=== PATIENT | male | born 1955 | race African-American/Black ===

== ENCOUNTER 2020-03-29 16:39 | Emergency (ER) | payer SELFPAY ==
[2020-03-29 17:42] LABS: Hematocrit 37.2 % (39.6-49.0); MPV 8.2 fL (7.6-11.3); RBC Red Blood Cell Count 4.01 M/uL (4.33-5.43)
[2020-03-29 17:59] LABS: Potassium 4.1 mmol/L (3.5-5.1)
--- NOTE | 2020-03-29 18:01 | RAD REPORT ---
EXAM DESCRIPTION: CT - Head Brain Wo Cont - 03/29/2020 5:44 pm CLINICAL HISTORY: MENTAL STATUS CHANGE COMPARISON: No comparisons TECHNIQUE: Axial 5 mm thick images of the head were obtained without IV contrast. All CT scans are performed using dose optimization technique as appropriate and may include automated exposure control or mA/KV adjustment according to patient size. FINDINGS: No intracranial hemorrhage, mass, edema or shift of mid-line structures. No acute cortical based infarction. No cortical edema or sulcal effacement. Advanced bifrontal and moderately advanced bitemporal atrophy changes are present. Parietal and occipital lobes are spared any significant degr ee of volume loss. Frontal horns of each lateral ventricle have enlarged in proportion to the frontal lobe atrophy. No abnormal extra-axial fluid collections. Arterial tree calcifications are present. Mastoid air cells and visualized portions of the paranasal sinuses are clear. No acute bony findings. IMPRESSION: No hemorrhage, mass or acute intracranial finding identified. Frontal and temporal lobe atrophy changes are consistent with frontotemporal dementia/Pick's disease.
[2020-03-29 18:05] LABS: Urine Bacteria <20 /HPF (NONE SEEN); Urine Culture Reflex Order NOT NEEDED; Urine RBC <5 /HPF (NONE SEEN)
[2020-03-29 18:05] LABS: Urine Blood NEGATIVE (NEG); Urine Glucose NEGATIVE (NEG); Urine Protein NEGATIVE (NEG)
--- NOTE | 2020-03-29 18:08 | EDPHYS ---
Physician Documentation [facility] Name: Ron Murray Age: 65 yrs Sex: Male : 1955 Arrival Date: 03/29/2020 Time: 16:57 Bed 2 Private MD: ED Physician Eusebio Woody HPI: 03/29 17:18 This 65 yrs old Black Male presents to ER via EMS with complaints of agitation, high rn blood pressure. 17:18 The patient presents with agitation. Onset: The symptoms/episode began/occurred at an rn unknown time. Possible causes: unknown. Associated signs and symptoms: The patient has no apparent associated signs or symptoms, Pertinent negatives: abdominal pain, ataxia, blurred vision, chest pain, diaphoresis, diarrhea, headache, seizure, shortness of breath, vomiting, weakness. Current symptoms: In the emergency department the patient's symptoms have improved. The patient has experienced similar episodes in the past. The patient has been recently seen by a physician:. Family member in room reports recently evaluated for [facility], was declined, agitation and behavior problems deemed 2/2 dementia, sent for eval today for continued agitation and to be medically cleared due to high blood pressure. No head trauma. Pt denies pain. No recent illness. Family member reports he has been like this "for awhile". Used to be on lisinopril, his doctor took him off of it. . Historical: - Allergies: 17:10 No Known Allergies; jl7 - Home Meds: 17:10 No medication list sent from half-way [Active]; jl7 - PMHx: 17:10 Dementia; Alzheimers; osteoarthritis; Hyperlipidemia; Hypertension; cerebral ischemia; jl7 - Immunization history:: Adult Immunizations unknown. - Social history:: Smoking status: unknown. - Family history:: not pertinent. - Hospitalizations: : Patient was recently seen at. ROS: 17:18 Constitutional: Negative for fever, chills, and weight loss, Eyes: Negative for injury, rn pain, redness, and discharge, Neck: Negative for injury, pain, and swelling, Cardiovascular: Negative for chest pain, palpitations, and edema, Respiratory: Negative for shortness of breath, cough, wheezing, and pleuritic chest pain, Abdomen/GI: Negative for abdominal pain, nausea, vomiting, diarrhea, and constipation, Back: Negative for injury and pain, MS/Extremity: Negative for injury and deformity, Skin: Negative for injury, rash, and discoloration, Neuro: Negative for headache, weakness, numbness, tingling, and seizure. Exam: 17:18 Constitutional: This is a well developed, well nourished patient who is awake, alert, rn and in no acute distress. Head/Face: Normocephalic, atraumatic. Eyes: Pupils equal round and reactive to light, extra-ocular motions intact. Periorbital areas with no swelling, redness, or edema. ENT: MMM Neck: Supple, full range of motion without nuchal rigidity, or vertebral point tenderness. No Meningismus. Cardiovascular: Regular rate and rhythm. No pulse deficits. Respiratory: No increased work of breathing, no retractions or nasal flaring. Abdomen/GI: soft, non-tender Skin: Warm, dry MS/ Extremity: Pulses equal, no cyanosis. Neuro: Awake and alert, GCS 15, oriented to person, not place or time. Ambulatory, follows commands. Strength and sensation grossly intact. Vital Signs: 16:45 BP 173 / 83; Pulse 65; Resp 17; Temp 97.7; Pulse Ox 100% ; Pain 0/10; jl7 18:00 em 18:30 BP 151 / 96; Pulse 65; Resp 17; Pulse Ox 100% ; jl7 18:00 pt removed BP cuff and pulse ox em MDM: 17:05 Patient medically screened. rn 18:06 Differential Diagnosis: electrolyte abnormality, UTI, volume depletion, dementia. Data rn reviewed: vital signs, nurses notes, lab test result(s), radiologic studies, CT scan, and as a result, I will discharge patient. Counseling: I had a detailed discussion with the patient and/or guardian regarding: the historical points, exam findings, and any diagnostic results supporting the discharge/admit diagnosis, lab results, radiology results, the need for outpatient follow up, to return to the emergency department if symptoms worsen or persist or if there are any questions or concerns that arise at home. Response to treatment: patient is well hydrated. Special discussion: I discussed with the patient/guardian in detail that at this point there is no indication for admission to the hospital. It is understood, however, that if the symptoms persist or worsen the patient needs to return immediately for re-evaluation. ED course: Pt with good behavior here, ct head neg for acute abnormality, neg UA, normal bloodwork. BP slightly elevated but taken off his lisinopril by his doctor. Will give dose here. . 03/29 17:18 Order name: CBC with Diff; Complete Time: 17:54 rn 03/29 17:18 Order name: Basic Metabolic Panel; Complete Time: 18:06 rn 03/29 17:18 Order name: Urine Microscopic Only; Complete Time: 18:11 rn 03/29 17:18 Order name: CT Head Brain wo Cont; Complete Time: 18:06 rn 03/29 18:12 Interpretation: No acute disease except: Frontotemporal changes consistent with rn front-temporal dementia. 03/29 17:53 Order name: Urine Dipstick--Ancillary (enter results); Complete Time: 18:06 eb 03/29 17:18 Order name: IV Start; Complete Time: 17:42 rn 03/29 17:18 Order name: Urine Dipstick-Ancillary (obtain specimen); Complete Time: 17:42 rn Administered Medications: 18:12 Drug: Lisinopril 10 mg Route: PO; jl7 19:00 Follow up: Response: No adverse reaction; Blood pressure is lowered jl7 Disposition: 03/29/20 18:08 Discharged to Home. Impression: Dementia in other diseases classified elsewhere. - Condition is Stable. - Discharge Instructions: Dementia. - Medication Reconciliation Form, Thank You Letter, Antibiotic Education, Prescription Opioid Use form. - Follow up: Private Physician; When: As needed; Reason: Recheck today's complaints, Re-evaluation by your physician. - Problem is an ongoing problem. - Symptoms are unchanged. Signatures: Dispatcher [employer] EDMS Eusebio Woody MD MD rn Leal, Jahala, RN RN jl7 Spike Bah RN RN rr5 Corrections: (The following items were deleted from the chart) 19:27 18:08 03/29/2020 18:08 Discharged to Home. Impression: Dementia in other diseases rr5 classified elsewhere. Condition is Stable. Forms are Medication Reconciliation Form, Thank You Letter, Antibiotic Education, Prescription Opioid Use. Follow up: Private Physician; When: As needed; Reason: Recheck today's complaints, Re-evaluation by your physician. Problem is an ongoing problem. Symptoms are unchanged. rn
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
[2020-03-30 05:44] VITALS: TEMP 97.7; O2SAT 100
[2020-03-30 05:45] VITALS: BP 151/96
== END 2020-03-29 19:27 | disposition home or self-care (01) ==
LOC: ER 16:39
DX: G30.9 Alzheimer's disease, unspecified (principal); F02.80 Dementia in other diseases classified elsewhere, unspecified severity, without behavioral disturbance, psychotic disturbance, mood disturbance, and anxiety; I10 Essential (primary) hypertension
CPT/HCPCS: 36415; 70450; 80048; 81003; 81015; 85025; 99284

== ENCOUNTER 2021-06-22 10:14 | Emergency (ER) | payer OTHER ==
--- OUTSIDE RECORDS SUMMARY | 2021-06-22 10:18 | XMS REPORT | Continuity of Care Document ---
:1955 Author Organization [facility] t Address [address] [place] [address] Care Team Providers Name Role Phone DR DORA Attending Clinician Unavailable DARLENE Attending Clinician Unavailable DR DORA Admitting Clinician Unavailable DARLENE Admitting Clinician Unavailable Payers Payer Name Policy Type Policy Number Effective Date Expiration Date S ource Problems This patient has no known problems. Allergies, Adverse Reactions, Alerts Allergy Allergy Status Severity Reaction(s) Onset Inactive Treating Comm ents Source Name Type Date Date Clinician No Known DA Active U 2019-05 [facility] 05-18 [place] s 00:00: [address] No Known DA Active U 2019-05 [facility] Allergie 05-18 [place] 00:00: [address] No Known DA Active [facility] Medications This patient has no known medications. Vital Signs Vital Name Observation Time Observation Value Comments Source Weight 2020-04-15 07:00:00 65.13 KG Weight 2020-04-08 10:33:00 65.58 KG Weight 2020-04-08 09:57:00 65.31 KG Height 2020-04-03 09:34:00 175.26 CM Procedures This patient has no known procedures. Encounters Start End Encounter Admission Attending Care Care Encounter Source Date/Time Date/Time Type Type Clinicians Facility Department ID 2020-04-03 Inpatient Madhuri JOHN OM SCStephan [id number] [place] 13:14:00 [facility] 2020-03-18 Inpatient KEVINWU TAWANNA [id number] [facility] 11:43:00 [facility] 2021-06-04 2021-06-04 Outpatient GERARDO[facility] [address] 12:18:00 12:18:00 _ANN 0126 da [facility] Program Results Test Description Test Time Test Comments Results Result Comments Source SARS-CoV (RAPID ANTIGEN) 2020-05-08 14:44:00 Test Item Value Reference Range Interpretation Comme nts SARS-CoV (ANTIGEN) (test code = NEGATIVE NEGATIVE COVAG) COVID AG (test code = COVAGC) This test has been marketed under the FDA Emergency Use Authorization (EUA) to meet challenges of the COVID-19 pandemic. The validation standards normally enforced by the FDA and the [employer] (CAP) are more stringent than those required for this test. Therefore, the result should be interpreted with caution and close attention to other clinical and epidemiological data GLUCOMETER GLUCOSE- LAB USE [id number] 07:28:00 Test Item Value Reference Range Interpretation Comments GLUCOMETER (test code 102 mg/dL 70-100 H CLEANE D METERMeter ID: = GMG) [id number] tor: [address] [facility] B12 [id number] 18:26:00 Test Item Value Reference Range Interpretation Comments VIT B12 (test code = A60) 459.0 pg/mL 180.0-914.0 [id number] 18:26:00 Test Item Value Reference Range Interpretation Comments FOLATE (test code = A75) 15.0 ng/mL 3.1-17.5 LIPID [id number] 18:26:00 Test Item Value Reference Range Interpretation Comments CHOLESTROL (test code = 44A) 192 mg/dL 140-200 TRIGLYCERI (test code = 42B) 61 mg/dL <=149 HDL (test code = 83D) 94.0 mg/dL 40.0-60.0 H LDL (test code = 34B) 86 mg/dL <=99 CHL/HDL (test code = CHR) 2.0 0.0-3.4 THYROID PANEL/SCREEN (TSH)2020-04-03 18:22:00 Test Item Value Reference Range Interpretation Comments TSH (test code = A57) 0.610 uIU/mL 0.358-3.740 [id number] 18:18:00 Test Item Value Reference Range Interpretation Comments MAGNESIUM (test code = 48A) 2.2 mg/dL 1.8-2.4 [id number] 18:18:00 Test Item Value Reference Range Interpretation Comments PREALBUMIN (test code = 08E) 34 mg/dL 18-38 [id number] 18:05:00 Test Item Value Reference Range Interpretation Comments Hb A1C % (test code 4.7 % 3.8-6.4 = HBA) A1C % (test code = HbA1c (% ) A1C) Reference Range Normal <5.7 Prediabetes 5.7-6.4 Diabetic >=6.5 [id number] 11:51:00 Test Item Value Reference Range Interpretation Comments ACETAMINPH (test code = 94M) <2.0 ug/mL 10.0-30.0 L [id number] 11:49:00 Test Item Value Reference Range Interpretation Comments FERRITIN (test code = A19) 521.4 ng/mL 26.0-388.0 H LDH-LACTIC [id number] 11:49:00 Test Item Value Reference Range Interpretation Comments LDH (test code = 33A) 241 IU/L 87-241 C-REACTIVE PROTEIN [id number] 11:41:00 Test Item Value Reference Range Interpretation Comments CRP QUANT (test code <2.9 mg/L 0.0-2.9 = CRPQ) Method Change (test Please note the code = METHOD) change in Method and the reference range COMPREHENSIVE METABOLIC [id number] 11:41:00 Test Item Value Reference Range Interpretation Comments GLUCOSE (test code = 86 mg/dL 75-100 06D) SODIUM (test code = 142 mmol/L 136-145 01A) POTASSIUM (test code = 4.0 mmol/L 3.6-5.1 01B) CHLORIDE (test code = 107 mmol/L 98-107 04A) CO2 (test code = 02A) 30 mmol/L 22-32 ANION GAP (test code = 9.0 mmol/L ANG) BUN (test code = 05D) 13 mg/dL 7-18 CREATININE (test code 1.1 mg/dL 0.7-1.3 = 03E) GFR (test code = GFR) 69 mL/min/1.73m\\S\\2 >=90 L GFR 80 mL/min/1.73m\\S\\2 >=90 L (test code = GFRAA) EGFR (test code = eGFR BY CKD-EPI EGFR) CALCULATION IS NOT RECOMMENDED FOR PATIENTS UNDER 18 YEARS OF AGE. BUN/CREA (test code = 12 12-20 BCR) CALCIUM (test code = 9.0 mg/dL 8.3-9.5 09D) BILI TOTAL (test code 0.2 mg/dL 0.2-1.0 = 11A) PROTEIN (test code = 8.1 g/dL 6.4-8.2 07D) ALBUMIN (test code = 4.1 g/dL 3.5-4.8 08D) GLOBULIN (test code = 4.0 g/dL 1.5-3.8 H GLB) ALB/GLOB (test code = 1.0 1.0-2.6 AGRR) ALK PHOS (test code = 101 IU/L 42-121 35A) AST (test code = 30A) 30 IU/L <=42 ALT (test code = 31A) 36 IU/L <=78 [id number] 11:41:00 Test Item Value Reference Range Interpretation Comments SALICYLATE (test code = 94B) <1.7 mg/dL 2.8-20.0 L ALCOHOL BLOOD (ETOH)2020-04-03 11:38:00 Test Item Value Reference Range Interpretation Comments ETOH (test code = HALC) ETHANOL The result is to be used only for medical purposes ALCOHOL (test code = <10 mg/dL <=10 56A) CARDIAC [id number] 11:37:00 Test Item Value Reference Range Interpretation Comments TROPONIN I (test code = A84) <0.015 ng/mL 0.000-0.045 SARS-CoV (RAPID ANTIGEN)2020-04-03 11:34:00 Test Item Value Reference Range Interpretation Comments SARS-CoV (ANTIGEN) NEGATIVE NEGATIVE (test code = COVAG) COVID AG (test This test has been code = COVAGC) marketed under the FDA Emergency Use Authorization (EUA) to meet challenges of the COVID-19 pandemic. The validation standards normally enforced by the FDA and the [employer] (CAP) are more stringent than those required for this test. Therefore, the result should be interpreted with caution and close attention to other clinical and epidemiological data AMMONIA [id number] 11:32:00 Test Item Value Reference Range Interpretation Comments AMMONIA (test code = 54A) 18 umol/L 11-32 PRO TIME AND [id number] 11:26:00 Test Item Value Reference Range Interpretation Comments PT (test code = 10.6 s 9.8-13.6 TT) INR (test code = 0.9 INR) INRH (test code = SUGGESTED INRH) THERAPEUTIC RANGE FOR INR: 2.5 - 3.5 For Patients with Prosthetic Valves or Patients with recurrent Thromboembolic Events 2.0 - 3.0 For Most Other Applications PTT (test code = 34.3 s 20.2-38.0 PTT) PTTH (test code = To monitor the PTTH) effectiveness of heparin, we offer the Anti-Xa (Heparin Assay). It can be used for either unfractionated or LMW Heparin. Order Code is ANTI-XA [id number] 11:26:00 Test Item Value Reference Range Interpretation Comments D-DIMER (test code = 530 ng/mL D-DU 0-234 H DDI) D-DIMER COMMENT (test *Level to rule out code = DDCOM) DVT or PE: <235 ng/mL D-DU* CBC (INCLUDES AUTOMATED DIFFERENTIAL)2020-04-03 11:22:00 Test Item Value Reference Range Interpretation Comments WBC (test code = WBC) 4.2 10\\S\\3/uL 4.5-11.0 L RBC (test code = RBC) 4.32 10\\S\\6/uL 4.20-5.60 HGB (test code = HBG) 13.4 g/dL 14.0-18.0 L HCT (test code = HCT) 42.1 % 35.0-46.0 MCV (test code = MCV) 97.5 fL 80.0-94.0 H MCH (test code = MCH) 31.0 pg 27.0-31.0 MCHC (test code = MCHC) 31.8 g/dL 32.0-36.0 L RDW (test code = RDW) 11.8 % 11.5-14.5 PLT (test code = PLT) 261 10\\S\\3/uL 130-400 MPV (test code = MPV) 9.7 fL 9.4-12.4 NEUTROP # (test code = NE#) 2.8 10\\S\\3/uL 2.0-8.0 LYMPH # (test code = LY#) 0.8 10\\S\\3/uL 1.2-4.0 L MONOCYTE # (test code = MO#) 0.4 10\\S\\3/uL 0.0-1.1 EOSINOPH # (test code = EO#) 0.1 10\\S\\3/uL 0.0-0.7 BASOPHIL # (test code = BA#) 0.0 10\\S\\3/uL 0.0-0.3 IG # (test code = IG#) 0.01 10\\S\\3/uL 0.00-0.06 NRBC # (test code = NRBC#) 0.00 10\\S\\3/uL 0.00-0.01 NEUTROPH % (test code = NE%) 67.1 % 35.0-73.0 LYMPH % (test code = LY%) 19.7 % 20.0-55.0 L MONO % (test code = MO%) 10.4 % 2.5-10.0 H EOSINOPH % (test code = EO%) 2.1 % 0.0-5.0 BASOPHIL % (test code = BA%) 0.5 % 0.0-2.0 IG % (test code = IG%) 0.2 % 0.0-0.8 NRBC% (test code = NRBC%) 0.0 % 0.0-0.2 MANDIFF (test code = MDIFF) NO NO RBC MORPH (test code = RBCMOR) NORMAL - CT HEAD/BRAIN W/O [id number] 14:32:00 [facility] : 1955 Sex: M Patient Name: JENNIFER BARTHOLOMEW Unit No: [id number] EXAMS: CPT CODE: [id number] CT HEAD/BRAIN W/O [id number] CT HEAD WITHOUT CONTRAST CLINICAL HISTORY: Psych clearance, psych evaluation COMPARISON: None available. TECHNIQUE: 5 mm axial images of the brain were obtained without contrast. Coronal and sagittal reformats were obtained. One or more of the following dose reduction techniques were used: Automated exposure control, adjustment of the mA and/or kV according to patient size, and/or utilization of iterative reconstruction technique. FINDINGS: Moderate cerebral volume loss is noted, predominantly affecting the frontal and temporal lobes. There is compensatory widening of the sulci and ventricles. Moderate periventricular andsubcortical white matter low-attenuation changes are nonspecific but may reflect chronic microvascular ischemic disease. No mass effect or midline shift is seen. There is no acute intracranial hemorrhage. The cranial vault and skull base are intact. The paranasal sinuses and mastoid air cells are pneumatized and well-aerated. IMPRESSION: 1. Moderate cerebral atrophy, predominantly affecting the frontotemporal lobes. 2. No acute intracranial hemorrhage. 3. Chronic micro vascular ischemic disease. Location: R16 at 1432 Reported and signed by: Tom Babin M.D. CC: Dustin Womack MD Technologist: Venkatesh West, RT(R); Vinnie CTDI: DLP: Trnscrpt: 03/18/2020 (1432) [email or web address] [facility] Claudio NAME: JENNIFER BARTHOLOMEW [id number] PHYS: SUSANNAHOneilDavina Saunders [place] [address] : 1955 AGE: 64 SEX: M LOC: [employer] PHONE #: [phone] EXAM DATE: 03/18/2020 STATUS: REG ER FAX #: [phone] RAD #: D/C DT PAGE 1 Signed Report Patient Name: JENNIFER BARTHOLOMEW Unit No: [id number] EXAMS: CPT CODE: [id number] CT HEAD/BRAIN W/O CONT [id number] <Continued> Orig Print D/T: S: 03/18/2020 (7995) [facility] Claudio NAME: JENNIFER BARTHOLOMEW [id number] PHYS: SUSANNAHOneilDavina Saunders [place] [address] : 1955 AGE: 64 SEX: M LOC: [employer] PHONE #: [phone] EXAM DATE: 03/18/2020 STATUS: REG ER FAX #: [phone] RAD #: D/C DT PAGE 2 Signed ReportCOVID 19 Asymptomatic IH [id number] 13:50:00 Test Item Value Reference Range Interpretation Comments COVID 19 NEGATIVE Negative "Negative resul ts from Asymptomatic IH AG patients with symptom (test code = onset beyondfiv e days, COVNONPUIAG) should be rashad shara as presumptive, andconfirmation with a molecular assay , if necessary forpa tient management may be performed. Nega tive results do notr ule out COVID-19 and sh ould not be used as the sole basisfor treatm ent or patient managem ent decisions, includinginfect ion control decisio ns. Negative result s should beconsidered in the context of a pa tients recent exposure s,history, and the presenc e of clinical signs and symptomsconsist ent with COVID-19.This t est detects both vi able andnon-viable S ARS-CoV and SARS CoV-2. Test performance dep endson the amount of virus (antigen) in the sample." BASIC METABOLIC [id number] 13:40:00 Test Item Value Reference Range Interpretation Comments SODIUM (test code = 142 MMOL/L 137-145 N NA) POTASSIUM (test code = 4.4 MMOL/L 3.5-5.1 N K) CHLORIDE (test code = 104 MMOL/L 98-107 N CL) CARBON DIOXIDE (test 28 MMOL/L 22-30 N code = CO2) GLUCOSE (test code = 82 MG/DL 74-106 N GLU) BLOOD UREA NITROGEN 12 MG/DL 9-20 N (test code = BUN) GLOMERULAR FILTRATION > 60 Report ing units: RATE (test code = GFR) ml/mi n/1.73 m2 (Modified MDRD Formula)Referen ce Range: > or = 6 0 ml/min/1.73 m2 CREATININE (test code 1.10 MG/DL 0.66-1.25 N = CREAT) CALCIUM (test code = 9.7 MG/DL 8.4-10.2 N CA) HEPATIC FUNCTION [id number] 13:40:00 Test Item Value Reference Range Interpretation Comments TOTAL PROTEIN (test 8.2 G/DL 6.2-7.6 H code = PROT) ALBUMIN (test code = 4.6 G/DL 3.5-5.0 N ALB) BILIRUBIN TOTAL (test 0.5 MG/DL 0.2-1.3 N Eltrom bopag code = BILT) Interference fo r Vitros Product TBil, BuBc: ======= ======= ======A ssay Eltrombop ag Analyte/ Max Observed Avg. Bias Concentratio n Concentration Concentration== ======= ======= ======= =======TBil 7 mg/dl TBil/ 1.2m g/dl +0.23mg.dl +0.20mg/dlBuBc 3.5mg/dl Bu/0.8mg/dl +0.25mg/dl +0.24mg/dlBuBc 7 mg/dl Bu/14.2mg/dl +0.38mg/dl +0.25mg/dlBuBc 5mg/dl Bc/0mg/dl +0.25mg/dl +0.15mg/dlBuBc 3.5mg/dl Bc/2.8mg/dl +0.25mg/dl +0.23mg/dl BILIRUBIN DIRECT 0.0 MG/DL 0.0-0.3 N Eltrombopag (test code = BILD) Interfere nce for Vitros Product TBil, BuBc: ======= ======= ======A ssay Eltrombop ag Analyte/ Max Observed Avg. Bias Concentratio n Concentration Concentration== ======= ======= ======= =======TBil 7 mg/dl TBil/ 1.2m g/dl +0.23mg.dl +0.20mg/dlBuBc 3.5mg/dl Bu/0.8mg/dl +0.25mg/dl +0.24mg/dlBuBc 7 mg/dl Bu/14.2mg/dl +0.38mg/dl +0.25mg/dlBuBc 5mg/dl Bc/0mg/dl +0.25mg/dl +0.15mg/dlBuBc 3.5mg/dl Bc/2.8mg/dl +0.25mg/dl +0.23mg/dl SGOT/AST (test code = 33 UNITS/L 17-59 N AST) SGPT/ALT (test code = 29 UNITS/L <50 ALT) ALKALINE PHOSPHATASE 78 UNITS/L 38-126 N (test code = ALKP) [id number] 13:40:00 Test Item Value Reference Range Interpretation Comments TROPONIN-I (test code = TROPI) 0.013 NG/ML 0.012-0.033 N [id number] 13:40:00 Test Item Value Reference Range Interpretation Comments ACETAMINOPHEN (test code = < 10.0 MCG/ML 10-30 L ACET) [id number] 13:40:00 Test Item Value Reference Range Interpretation Comments SALICYLATE (test code = ROBER) < 1.0 MG/DL <2.0 [id number] 13:40:00 Test Item Value Reference Range Interpretation Comments ALCOHOL (test code = ALC) < 10.0 MG/DL <10 BASIC METABOLIC [id number] 13:30:00 Test Item Value Reference Range Interpretation Comments SODIUM (test code = 142 MMOL/L 137-145 N NA) POTASSIUM (test code = 4.4 MMOL/L 3.5-5.1 N K) CHLORIDE (test code = 104 MMOL/L 98-107 N CL) CARBON DIOXIDE (test 28 MMOL/L 22-30 N code = CO2) GLUCOSE (test code = 82 MG/DL 74-106 N GLU) BLOOD UREA NITROGEN 12 MG/DL 9-20 N (test code = BUN) GLOMERULAR FILTRATION > 60 Report ing units: RATE (test code = GFR) ml/mi n/1.73 m2 (Modified MDRD Formula)Referen ce Range: > or = 6 0 ml/min/1.73 m2 CREATININE (test code 1.10 MG/DL 0.66-1.25 N = CREAT) CALCIUM (test code = 9.7 MG/DL 8.4-10.2 N CA) HEPATIC FUNCTION [id number] 13:30:00 Test Item Value Reference Range Interpretation Comments TOTAL PROTEIN (test 8.2 G/DL 6.2-7.6 H code = PROT) ALBUMIN (test code = 4.6 G/DL 3.5-5.0 N ALB) BILIRUBIN TOTAL (test 0.5 MG/DL 0.2-1.3 N Eltrom bopag code = BILT) Interference fo r Vitros Product TBil, BuBc: ======= ======= ======A ssay Eltrombop ag Analyte/ Max Observed Avg. Bias Concentratio n Concentration Concentration== ======= ======= ======= =======TBil 7 mg/dl TBil/ 1.2m g/dl +0.23mg.dl +0.20mg/dlBuBc 3.5mg/dl Bu/0.8mg/dl +0.25mg/dl +0.24mg/dlBuBc 7 mg/dl Bu/14.2mg/dl +0.38mg/dl +0.25mg/dlBuBc 5mg/dl Bc/0mg/dl +0.25mg/dl +0.15mg/dlBuBc 3.5mg/dl Bc/2.8mg/dl +0.25mg/dl +0.23mg/dl BILIRUBIN DIRECT 0.0 MG/DL 0.0-0.3 N Eltrombopag (test code = BILD) Interfere nce for Vitros Product TBil, BuBc: ======= ======= ======A ssay Eltrombop ag Analyte/ Max Observed Avg. Bias Concentratio n Concentration Concentration== ======= ======= ======= =======TBil 7 mg/dl TBil/ 1.2m g/dl +0.23mg.dl +0.20mg/dlBuBc 3.5mg/dl Bu/0.8mg/dl +0.25mg/dl +0.24mg/dlBuBc 7 mg/dl Bu/14.2mg/dl +0.38mg/dl +0.25mg/dlBuBc 5mg/dl Bc/0mg/dl +0.25mg/dl +0.15mg/dlBuBc 3.5mg/dl Bc/2.8mg/dl +0.25mg/dl +0.23mg/dl SGOT/AST (test code = 33 UNITS/L 17-59 N AST) SGPT/ALT (test code = 29 UNITS/L <50 ALT) ALKALINE PHOSPHATASE 78 UNITS/L 38-126 N (test code = ALKP) [id number] 13:30:00 Test Item Value Reference Range Interpretation Comments TROPONIN-I (test code = TROPI) NG/ML 0.0-0.045 [id number] 13:30:00 Test Item Value Reference Range Interpretation Comments ACETAMINOPHEN (test code = < 10.0 MCG/ML 10-30 L ACET) [id number] 13:30:00 Test Item Value Reference Range Interpretation Comments SALICYLATE (test code = ROBER) < 1.0 MG/DL <2.0 [id number] 13:30:00 Test Item Value Reference Range Interpretation Comments ALCOHOL (test code = ALC) < 10.0 MG/DL <10 URINALYSIS [id number] 13:29:00 Test Item Value Reference Range Interpretation Comments UA COLOR (test code = YELLOW YELLOW COLU) UA APPEARANCE (test code CLEAR CLEAR = APPU) UA GLUCOSE DIPSTICK (test NORMAL MG/DL NORMAL code = DGLUU) UA BILIRUBIN DIPSTICK NEGATIVE MG/DL NEGATIVE (test code = BILU) UA KETONE DIPSTICK (test NEGATIVE MG/DL NEGATIVE code = KETU) UA SPECIFIC GRAVITY (test 1.015 1.003-1.030 N code = SGU) UA BLOOD DIPSTICK (test NEGATIVE Matt/mm3 NEGATIVE code = POOL) UA PH DIPSTICK (test code 8.0 5.0-9.0 N = ARLIN) UA PROTEIN DIPSTICK (test NEGATIVE MG/DL NEGATIVE code = PROU) UA UROBILINIOGEN DIPSTICK NORMAL MG/DL NORMAL (test code = URO) UA NITRITE DIPSTICK (test NEGATIVE NEGATIVE code = JUNIOR) UA LEUKOCYTE ESTERASE NEGATIVE /mm3 NEGATIVE DIPSTICK (test code = LEUU) UA CULTURE NEEDED? (test NEGATIVE, NO CULTURE Culture Chk code = UACULT) Criteria SOURCE OF URINE: CLEAN CATCHDRUGS OF ABUSE SCREEN [id number] 13:29:00 Test Item Value Reference Range Interpretation Comments UR COCAINE (test code = NEGATIVE NEGATIVE Cut off Value: 300 COCAU) ng/mL UR CANNABINOIDS (THC) NEGATIVE NEGATIVE Cut of f Value: 50 (test code = CANU) ng/mL UR AMPHETAMINE (test code NEGATIVE NEGATIVE Cu t off Value: 1000 = AMPHU) ng/mL UR BARBITURATE QUAL (test NEGATIVE NEGATIVE Cu t off Value: 200 code = BARBQLU) ng/mL UR BENZODIAZEPINE (test NEGATIVE NEGATIVE Cut off Value: 200 code = BENZU) ng/mL UR OPIATES QUAL (test code NEGATIVE NEGATIVE C ut off Value: 300 = OPIAQLU) ng/mL UR PHENCYCLIDINE (PCP) NEGATIVE NEGATIVE Cut o ff Value: 25 (test code = PHENCU) ng/mL SOURCE OF URINE: CLEAN CATCHBASIC METABOLIC [id number] 13:29:00 Test Item Value Reference Range Interpretation Comments SODIUM (test code = 142 MMOL/L 137-145 N NA) POTASSIUM (test code = 4.4 MMOL/L 3.5-5.1 N K) CHLORIDE (test code = 104 MMOL/L 98-107 N CL) CARBON DIOXIDE (test 28 MMOL/L 22-30 N code = CO2) GLUCOSE (test code = 82 MG/DL 74-106 N GLU) BLOOD UREA NITROGEN 12 MG/DL 9-20 N (test code = BUN) GLOMERULAR FILTRATION > 60 Report ing units: RATE (test code = GFR) ml/mi n/1.73 m2 (Modified MDRD Formula)Referen ce Range: > or = 6 0 ml/min/1.73 m2 CREATININE (test code 1.10 MG/DL 0.66-1.25 N = CREAT) CALCIUM (test code = 9.7 MG/DL 8.4-10.2 N CA) HEPATIC FUNCTION [id number] 13:29:00 Test Item Value Reference Range Interpretation Comments TOTAL PROTEIN (test 8.2 G/DL 6.2-7.6 H code = PROT) ALBUMIN (test code = 4.6 G/DL 3.5-5.0 N ALB) BILIRUBIN TOTAL (test 0.5 MG/DL 0.2-1.3 N Eltrom bopag code = BILT) Interference fo r Vitros Product TBil, BuBc: ======= ======= ======A ssay Eltrombop ag Analyte/ Max Observed Avg. Bias Concentratio n Concentration Concentration== ======= ======= ======= =======TBil 7 mg/dl TBil/ 1.2m g/dl +0.23mg.dl +0.20mg/dlBuBc 3.5mg/dl Bu/0.8mg/dl +0.25mg/dl +0.24mg/dlBuBc 7 mg/dl Bu/14.2mg/dl +0.38mg/dl +0.25mg/dlBuBc 5mg/dl Bc/0mg/dl +0.25mg/dl +0.15mg/dlBuBc 3.5mg/dl Bc/2.8mg/dl +0.25mg/dl +0.23mg/dl BILIRUBIN DIRECT 0.0 MG/DL 0.0-0.3 N Eltrombopag (test code = BILD) Interfere nce for Vitros Product TBil, BuBc: ======= ======= ======A ssay Eltrombop ag Analyte/ Max Observed Avg. Bias Concentratio n Concentration Concentration== ======= ======= ======= =======TBil 7 mg/dl TBil/ 1.2m g/dl +0.23mg.dl +0.20mg/dlBuBc 3.5mg/dl Bu/0.8mg/dl +0.25mg/dl +0.24mg/dlBuBc 7 mg/dl Bu/14.2mg/dl +0.38mg/dl +0.25mg/dlBuBc 5mg/dl Bc/0mg/dl +0.25mg/dl +0.15mg/dlBuBc 3.5mg/dl Bc/2.8mg/dl +0.25mg/dl +0.23mg/dl SGOT/AST (test code = 33 UNITS/L 17-59 N AST) SGPT/ALT (test code = 29 UNITS/L <50 ALT) ALKALINE PHOSPHATASE 78 UNITS/L 38-126 N (test code = ALKP) [id number] 13:29:00 Test Item Value Reference Range Interpretation Comments TROPONIN-I (test code = TROPI) NG/ML 0.0-0.045 [id number] 13:29:00 Test Item Value Reference Range Interpretation Comments ACETAMINOPHEN (test code = < 10.0 MCG/ML 10-30 L ACET) [id number] 13:29:00 Test Item Value Reference Range Interpretation Comments SALICYLATE (test code = ROBER) < 1.0 MG/DL <2.0 [id number] 13:29:00 Test Item Value Reference Range Interpretation Comments ALCOHOL (test code = ALC) MG/DL <10 BASIC METABOLIC [id number] 13:28:00 Test Item Value Reference Range Interpretation Comments SODIUM (test code = 142 MMOL/L 137-145 N NA) POTASSIUM (test code = 4.4 MMOL/L 3.5-5.1 N K) CHLORIDE (test code = 104 MMOL/L 98-107 N CL) CARBON DIOXIDE (test 28 MMOL/L 22-30 N code = CO2) GLUCOSE (test code = MG/DL 74-106 GLU) BLOOD UREA NITROGEN MG/DL 9-20 (test code = BUN) GLOMERULAR FILTRATION > 60 Report ing units: RATE (test code = GFR) ml/mi n/1.73 m2 (Modified MDRD Formula)Referen ce Range: > or = 6 0 ml/min/1.73 m2 CREATININE (test code 1.10 MG/DL 0.66-1.25 N = CREAT) CALCIUM (test code = MG/DL 8.7-9.7 CA) HEPATIC FUNCTION [id number] 13:28:00 Test Item Value Reference Range Interpretation Comments TOTAL PROTEIN (test G/DL 6.2-7.6 code = PROT) ALBUMIN (test code = 4.6 G/DL 3.5-5.0 N ALB) BILIRUBIN TOTAL (test 0.5 MG/DL 0.2-1.3 N Eltrom bopag code = BILT) Interference fo r Vitros Product TBil, BuBc: ======== ======== ====Assa y Eltrombopag Analyte/ Max Observed Avg. Bias Concentration Concentration Concentration== ======== ======== ======== ====TBil 7mg/ dl TBil/ 1.2mg/dl +0.23mg.dl +0.20mg/dlBuBc 3.5mg/dl Bu/0.8mg/dl +0.25mg/dl +0.24mg/dlBuBc 7 mg/dl Bu/14.2mg/dl +0.38mg/dl +0.25mg/dlBuBc 5mg/dl Bc/0mg/d l +0.25mg/dl +0.15mg/dlBuBc 3.5mg/dl Bc/2.8mg/dl +0.25mg/dl +0 .23mg/dl BILIRUBIN DIRECT 0.0 MG/DL 0.0-0.3 N Eltrombopag (test code = BILD) Interfere nce for Vitros Product TBil, BuBc: ======== ======== ====Assa y Eltrombopag Analyte/ Max Observed Avg. Bias Concentration Concentration Concentration== ======== ======== ======== ====TBil 7mg/ dl TBil/ 1.2mg/dl +0.23mg.dl +0.20mg/dlBuBc 3.5mg/dl Bu/0.8mg/dl +0.25mg/dl +0.24mg/dlBuBc 7 mg/dl Bu/14.2mg/dl +0.38mg/dl +0.25mg/dlBuBc 5mg/dl Bc/0mg/d l +0.25mg/dl +0.15mg/dlBuBc 3.5mg/dl Bc/2.8mg/dl +0.25mg/dl +0 .23mg/dl SGOT/AST (test code = UNITS/L 15-37 AST) SGPT/ALT (test code = UNITS/L <50 ALT) ALKALINE PHOSPHATASE UNITS/L 38-126 (test code = ALKP) [id number] 13:28:00 Test Item Value Reference Range Interpretation Comments TROPONIN-I (test code = TROPI) NG/ML 0.0-0.045 [id number] 13:28:00 Test Item Value Reference Range Interpretation Comments ACETAMINOPHEN (test code = ACET) MCG/ML 10-30 [id number] 13:28:00 Test Item Value Reference Range Interpretation Comments SALICYLATE (test code = ROBER) MG/DL <2.0 [id number] 13:28:00 Test Item Value Reference Range Interpretation Comments ALCOHOL (test code = ALC) MG/DL <10 URINALYSIS [id number] 13:28:00 Test Item Value Reference Range Interpretation Comments UA COLOR (test code = YELLOW YELLOW COLU) UA APPEARANCE (test code CLEAR CLEAR = APPU) UA GLUCOSE DIPSTICK (test NORMAL MG/DL NORMAL code = DGLUU) UA BILIRUBIN DIPSTICK NEGATIVE MG/DL NEGATIVE (test code = BILU) UA KETONE DIPSTICK (test NEGATIVE MG/DL NEGATIVE code = KETU) UA SPECIFIC GRAVITY (test 1.015 1.003-1.030 N code = SGU) UA BLOOD DIPSTICK (test NEGATIVE Matt/mm3 NEGATIVE code = POOL) UA PH DIPSTICK (test code 8.0 5.0-9.0 N = ARLIN) UA PROTEIN DIPSTICK (test NEGATIVE MG/DL NEGATIVE code = PROU) UA UROBILINIOGEN DIPSTICK NORMAL MG/DL NORMAL (test code = URO) UA NITRITE DIPSTICK (test NEGATIVE NEGATIVE code = JUNIOR) UA LEUKOCYTE ESTERASE NEGATIVE /mm3 NEGATIVE DIPSTICK (test code = LEUU) UA CULTURE NEEDED? (test NEGATIVE, NO CULTURE Culture Chk code = UACULT) Criteria SOURCE OF URINE: CLEAN CATCHDRUGS OF ABUSE SCREEN [id number] 13:28:00 Test Item Value Reference Range Interpretation Comments UR COCAINE (test code = NEGATIVE NEGATIVE Cut off Value: 300 COCAU) ng/mL UR CANNABINOIDS (THC) NEGATIVE NEGATIVE Cut of f Value: 50 (test code = CANU) ng/mL UR AMPHETAMINE (test code NEGATIVE NEGATIVE Cu t off Value: 1000 = AMPHU) ng/mL UR BARBITURATE QUAL (test NEGATIVE NEGATIVE Cu t off Value: 200 code = BARBQLU) ng/mL UR BENZODIAZEPINE (test NEGATIVE NEGATIVE Cut off Value: 200 code = BENZU) ng/mL UR OPIATES QUAL (test code NEGATIVE NEGATIVE C ut off Value: 300 = OPIAQLU) ng/mL UR PHENCYCLIDINE (PCP) NEGATIVE (test code = PHENCU) SOURCE OF URINE: CLEAN CATCHURINALYSIS [id number] 13:27:00 Test Item Value Reference Range Interpretation Comments UA COLOR (test code = YELLOW YELLOW COLU) UA APPEARANCE (test code CLEAR CLEAR = APPU) UA GLUCOSE DIPSTICK (test NORMAL MG/DL NORMAL code = DGLUU) UA BILIRUBIN DIPSTICK NEGATIVE MG/DL NEGATIVE (test code = BILU) UA KETONE DIPSTICK (test NEGATIVE MG/DL NEGATIVE code = KETU) UA SPECIFIC GRAVITY (test 1.015 1.003-1.030 N code = SGU) UA BLOOD DIPSTICK (test NEGATIVE Matt/mm3 NEGATIVE code = POOL) UA PH DIPSTICK (test code 8.0 5.0-9.0 N = ARLIN) UA PROTEIN DIPSTICK (test NEGATIVE MG/DL NEGATIVE code = PROU) UA UROBILINIOGEN DIPSTICK NORMAL MG/DL NORMAL (test code = URO) UA NITRITE DIPSTICK (test NEGATIVE NEGATIVE code = JUNIOR) UA LEUKOCYTE ESTERASE NEGATIVE /mm3 NEGATIVE DIPSTICK (test code = LEUU) UA CULTURE NEEDED? (test NEGATIVE, NO CULTURE Culture Chk code = UACULT) Criteria SOURCE OF URINE: CLEAN CATCHDRUGS OF ABUSE SCREEN [id number] 13:27:00 Test Item Value Reference Range Interpretation Comments UR COCAINE (test code = NEGATIVE NEGATIVE Cut off Value: 300 COCAU) ng/mL UR CANNABINOIDS (THC) NEGATIVE (test code = CANU) UR AMPHETAMINE (test code NEGATIVE NEGATIVE Cu t off Value: 1000 = AMPHU) ng/mL UR BARBITURATE QUAL (test NEGATIVE NEGATIVE Cu t off Value: 200 code = BARBQLU) ng/mL UR BENZODIAZEPINE (test NEGATIVE NEGATIVE Cut off Value: 200 code = BENZU) ng/mL UR OPIATES QUAL (test code NEGATIVE = OPIAQLU) UR PHENCYCLIDINE (PCP) NEGATIVE (test code = PHENCU) SOURCE OF URINE: CLEAN CATCHBASIC METABOLIC [id number] 13:26:00 Test Item Value Reference Range Interpretation Comments SODIUM (test code = NA) 142 MMOL/L 137-145 N POTASSIUM (test code = K) 4.4 MMOL/L 3.5-5.1 N CHLORIDE (test code = CL) 104 MMOL/L 98-107 N CARBON DIOXIDE (test code = CO2) MMOL/L 22-30 GLUCOSE (test code = GLU) MG/DL 74-106 BLOOD UREA NITROGEN (test code = MG/DL 9-20 BUN) GLOMERULAR FILTRATION RATE (test code = GFR) CREATININE (test code = CREAT) MG/DL 0.66-1.25 CALCIUM (test code = CA) MG/DL 8.7-9.7 HEPATIC FUNCTION [id number] 13:26:00 Test Item Value Reference Range Interpretation Comments TOTAL PROTEIN (test code = PROT) G/DL 6.2-7.6 ALBUMIN (test code = ALB) 4.6 G/DL 3.5-5.0 N BILIRUBIN TOTAL (test code = BILT) MG/DL 0.2-1.3 BILIRUBIN DIRECT (test code = BILD) MG/DL 0.0-0.3 SGOT/AST (test code = AST) UNITS/L 15-37 SGPT/ALT (test code = ALT) UNITS/L <50 ALKALINE PHOSPHATASE (test code = UNITS/L 38-126 ALKP) [id number] 13:26:00 Test Item Value Reference Range Interpretation Comments TROPONIN-I (test code = TROPI) NG/ML 0.0-0.045 [id number] 13:26:00 Test Item Value Reference Range Interpretation Comments ACETAMINOPHEN (test code = ACET) MCG/ML 10-30 [id number] 13:26:00 Test Item Value Reference Range Interpretation Comments SALICYLATE (test code = ROBER) MG/DL <2.0 [id number] 13:26:00 Test Item Value Reference Range Interpretation Comments ALCOHOL (test code = ALC) MG/DL <10 URINALYSIS [id number] 13:26:00 Test Item Value Reference Range Interpretation Comments UA COLOR (test code = YELLOW YELLOW COLU) UA APPEARANCE (test code CLEAR CLEAR = APPU) UA GLUCOSE DIPSTICK (test NORMAL MG/DL NORMAL code = DGLUU) UA BILIRUBIN DIPSTICK NEGATIVE MG/DL NEGATIVE (test code = BILU) UA KETONE DIPSTICK (test NEGATIVE MG/DL NEGATIVE code = KETU) UA SPECIFIC GRAVITY (test 1.015 1.003-1.030 N code = SGU) UA BLOOD DIPSTICK (test NEGATIVE Matt/mm3 NEGATIVE code = POOL) UA PH DIPSTICK (test code 8.0 5.0-9.0 N = ARLIN) UA PROTEIN DIPSTICK (test NEGATIVE MG/DL NEGATIVE code = PROU) UA UROBILINIOGEN DIPSTICK NORMAL MG/DL NORMAL (test code = URO) UA NITRITE DIPSTICK (test NEGATIVE NEGATIVE code = JUNIOR) UA LEUKOCYTE ESTERASE NEGATIVE /mm3 NEGATIVE DIPSTICK (test code = LEUU) UA CULTURE NEEDED? (test NEGATIVE, NO CULTURE Culture Chk code = UACULT) Criteria SOURCE OF URINE: CLEAN CATCHDRUGS OF ABUSE SCREEN [id number] 13:26:00 Test Item Value Reference Range Interpretation Comments UR COCAINE (test code = NEGATIVE COCAU) UR CANNABINOIDS (THC) NEGATIVE (test code = CANU) UR AMPHETAMINE (test code NEGATIVE NEGATIVE Cu t off Value: 1000 = AMPHU) ng/mL UR BARBITURATE QUAL (test NEGATIVE NEGATIVE Cu t off Value: 200 code = BARBQLU) ng/mL UR BENZODIAZEPINE (test NEGATIVE code = BENZU) UR OPIATES QUAL (test code NEGATIVE = OPIAQLU) UR PHENCYCLIDINE (PCP) NEGATIVE (test code = PHENCU) SOURCE OF URINE: CLEAN CATCHBASIC METABOLIC [id number] 13:25:00 Test Item Value Reference Range Interpretation Comments SODIUM (test code = NA) MMOL/L 137-145 POTASSIUM (test code = K) MMOL/L 3.5-5.1 CHLORIDE (test code = CL) MMOL/L 98-107 CARBON DIOXIDE (test code = CO2) MMOL/L 22-30 GLUCOSE (test code = GLU) MG/DL 74-106 BLOOD UREA NITROGEN (test code = BUN) MG/DL 9-20 GLOMERULAR FILTRATION RATE (test code = GFR) CREATININE (test code = CREAT) MG/DL 0.66-1.25 CALCIUM (test code = CA) MG/DL 8.7-9.7 HEPATIC FUNCTION [id number] 13:25:00 Test Item Value Reference Range Interpretation Comments TOTAL PROTEIN (test code = PROT) G/DL 6.2-7.6 ALBUMIN (test code = ALB) 4.6 G/DL 3.5-5.0 N BILIRUBIN TOTAL (test code = BILT) MG/DL 0.2-1.3 BILIRUBIN DIRECT (test code = BILD) MG/DL 0.0-0.3 SGOT/AST (test code = AST) UNITS/L 15-37 SGPT/ALT (test code = ALT) UNITS/L <50 ALKALINE PHOSPHATASE (test code = UNITS/L 38-126 ALKP) [id number] 13:25:00 Test Item Value Reference Range Interpretation Comments TROPONIN-I (test code = TROPI) NG/ML 0.0-0.045 [id number] 13:25:00 Test Item Value Reference Range Interpretation Comments ACETAMINOPHEN (test code = ACET) MCG/ML 10-30 [id number] 13:25:00 Test Item Value Reference Range Interpretation Comments SALICYLATE (test code = ROBER) MG/DL <2.0 [id number] 13:25:00 Test Item Value Reference Range Interpretation Comments ALCOHOL (test code = ALC) MG/DL <10 URINALYSIS [id number] 13:25:00 Test Item Value Reference Range Interpretation Comments UA COLOR (test code = YELLOW YELLOW COLU) UA APPEARANCE (test code CLEAR CLEAR = APPU) UA GLUCOSE DIPSTICK (test NORMAL MG/DL NORMAL code = DGLUU) UA BILIRUBIN DIPSTICK NEGATIVE MG/DL NEGATIVE (test code = BILU) UA KETONE DIPSTICK (test NEGATIVE MG/DL NEGATIVE code = KETU) UA SPECIFIC GRAVITY (test 1.015 1.003-1.030 N code = SGU) UA BLOOD DIPSTICK (test NEGATIVE Matt/mm3 NEGATIVE code = POOL) UA PH DIPSTICK (test code 8.0 5.0-9.0 N = ARLIN) UA PROTEIN DIPSTICK (test NEGATIVE MG/DL NEGATIVE code = PROU) UA UROBILINIOGEN DIPSTICK NORMAL MG/DL NORMAL (test code = URO) UA NITRITE DIPSTICK (test NEGATIVE NEGATIVE code = JUNIOR) UA LEUKOCYTE ESTERASE NEGATIVE /mm3 NEGATIVE DIPSTICK (test code = LEUU) UA CULTURE NEEDED? (test NEGATIVE, NO CULTURE Culture Chk code = UACULT) Criteria SOURCE OF URINE: CLEAN CATCHDRUGS OF ABUSE SCREEN [id number] 13:25:00 Test Item Value Reference Range Interpretation Comments UR COCAINE (test code = NEGATIVE COCAU) UR CANNABINOIDS (THC) NEGATIVE (test code = CANU) UR AMPHETAMINE (test code NEGATIVE NEGATIVE Cu t off Value: 1000 = AMPHU) ng/mL UR BARBITURATE QUAL (test NEGATIVE code = BARBQLU) UR BENZODIAZEPINE (test NEGATIVE code = BENZU) UR OPIATES QUAL (test code NEGATIVE = OPIAQLU) UR PHENCYCLIDINE (PCP) NEGATIVE (test code = PHENCU) SOURCE OF URINE: CLEAN CATCHURINALYSIS [id number] 13:04:00 Test Item Value Reference Range Interpretation Comments UA COLOR (test code = YELLOW YELLOW COLU) UA APPEARANCE (test code CLEAR CLEAR = APPU) UA GLUCOSE DIPSTICK (test NORMAL MG/DL NORMAL code = DGLUU) UA BILIRUBIN DIPSTICK NEGATIVE MG/DL NEGATIVE (test code = BILU) UA KETONE DIPSTICK (test NEGATIVE MG/DL NEGATIVE code = KETU) UA SPECIFIC GRAVITY (test 1.015 1.003-1.030 N code = SGU) UA BLOOD DIPSTICK (test NEGATIVE Matt/mm3 NEGATIVE code = POOL) UA PH DIPSTICK (test code 8.0 5.0-9.0 N = ARLIN) UA PROTEIN DIPSTICK (test NEGATIVE MG/DL NEGATIVE code = PROU) UA UROBILINIOGEN DIPSTICK NORMAL MG/DL NORMAL (test code = URO) UA NITRITE DIPSTICK (test NEGATIVE NEGATIVE code = JUNIOR) UA LEUKOCYTE ESTERASE NEGATIVE /mm3 NEGATIVE DIPSTICK (test code = LEUU) UA CULTURE NEEDED? (test NEGATIVE, NO CULTURE Culture Chk code = UACULT) Criteria SOURCE OF URINE: CLEAN CATCHDRUGS OF ABUSE SCREEN [id number] 13:04:00 Test Item Value Reference Range Interpretation Comments UR COCAINE (test code = COCAU) NEGATIVE UR CANNABINOIDS (THC) (test code = NEGATIVE CANU) UR AMPHETAMINE (test code = AMPHU) NEGATIVE UR BARBITURATE QUAL (test code = NEGATIVE BARBQLU) UR BENZODIAZEPINE (test code = BENZU) NEGATIVE UR OPIATES QUAL (test code = OPIAQLU) NEGATIVE UR PHENCYCLIDINE (PCP) (test code = NEGATIVE PHENCU) SOURCE OF URINE: CLEAN CATCHDRUGS OF ABUSE SCREEN [id number] 13:03:00 Test Item Value Reference Range Interpretation Comments UR COCAINE (test code = COCAU) NEGATIVE UR CANNABINOIDS (THC) (test code = NEGATIVE CANU) UR AMPHETAMINE (test code = AMPHU) NEGATIVE UR BARBITURATE QUAL (test code = NEGATIVE BARBQLU) UR BENZODIAZEPINE (test code = BENZU) NEGATIVE UR OPIATES QUAL (test code = OPIAQLU) NEGATIVE UR PHENCYCLIDINE (PCP) (test code = NEGATIVE PHENCU) SOURCE OF URINE: CLEAN CATCHURINALYSIS [id number] 13:03:00 Test Item Value Reference Range Interpretation Comments UA COLOR (test code = COLU) YELLOW YELLOW UA APPEARANCE (test code = CLEAR CLEAR APPU) UA GLUCOSE DIPSTICK (test NORMAL MG/DL NORMAL code = DGLUU) UA BILIRUBIN DIPSTICK (test NEGATIVE MG/DL NEGATIVE code = BILU) UA KETONE DIPSTICK (test NEGATIVE MG/DL NEGATIVE code = KETU) UA SPECIFIC GRAVITY (test 1.015 1.003-1.030 N code = SGU) UA BLOOD DIPSTICK (test code NEGATIVE Matt/mm3 NEGATIVE = POOL) UA PH DIPSTICK (test code = 8.0 5.0-9.0 N ARLIN) UA PROTEIN DIPSTICK (test NEGATIVE MG/DL NEGATIVE code = PROU) UA UROBILINIOGEN DIPSTICK NORMAL MG/DL NORMAL (test code = URO) UA NITRITE DIPSTICK (test NEGATIVE NEGATIVE code = JUNIOR) UA LEUKOCYTE ESTERASE NEGATIVE /mm3 NEGATIVE DIPSTICK (test code = LEUU) UA CULTURE NEEDED? (test Criteria Culture Chk code = UACULT) SOURCE OF URINE: CLEAN CATCHCBC W/AUTO [id number] 13:02:00 Test Item Value Reference Range Interpretation Comments WHITE BLOOD CELL (test code = 4.0 K/MM3 3.8-9.8 N WBC) RED BLOOD CELL (test code = 4.09 M/MM3 3.95-5.67 N RBC) HEMOGLOBIN (test code = HGB) 12.8 G/DL 12.4-16.7 N HEMATOCRIT (test code = HCT) 40.4 % 35.9-49.5 N MEAN CELL VOLUME (test code = 99 fL 81.7-96.1 H MCV) MEAN CELL HGB (test code = MCH) 31.3 pg 27.6-33.2 N MEAN CELL HGB CONCETRATION 31.7 % 32.9-35.5 L (test code = MCHC) RED CELL DISTRIBUTION WIDTH 12.2 % 12.1-15.2 N (test code = RDW) PLATELET COUNT (test code = 223 K/MM3 129-368 N PLT) MEAN PLATELET VOLUME (test code 9.9 fl 7.4-10.4 N = MPV) NEUTROPHIL % (test code = NT%) 53.0 % 43-75 N IMMATURE GRANULOCYTE % (test 0.2 % 0.0-2.0 N code = IG%) LYMPHOCYTE % (test code = LY%) 28.7 % 14-44 N MONOCYTE % (test code = MO%) 14.2 % 4-13 H EOSINOPHIL % (test code = EO%) 3.2 % 0-6 N BASOPHIL % (test code = BA%) 0.7 % 0-2 N NUCLEATED RBC % (test code = 0.0 % 0-1.0 N NRBC%) NEUTROPHIL # (test code = NT#) 2.12 K/mm3 2.0-7.6 N IMMATURE GRANULOCYTE # (test 0.01 x10 3/uL 0-0.03 N code = IG#) LYMPHOCYTE # (test code = LY#) 1.15 K/mm3 1.0-3.8 N MONOCYTE # (test code = MO#) 0.57 K/mm3 0.1-0.8 N EOSINOPHIL # (test code = EO#) 0.13 K/mm3 0.0-0.2 N BASOPHIL # (test code = BA#) 0.03 K/mm3 0.0-0.2 N NUCLEATED RBC # (test code = 0.00 K/mm3 0.0-0.1 N NRBC#)
[2021-06-22] MEDS ORDERED: NA CHLORIDE 0.9% 1,000 ML ONE ×2 (10:56→12:11)
[2021-06-22 11:01] LABS: Absolute Lymphocytes (CBC) 0.3 K/uL (0.7-4.9); Hematocrit 39.3 % (39.6-49.0); Lymphocytes % 3.2 % (15.3-44.8); MPV 7.9 fL (7.6-11.3)
--- NOTE | 2021-06-22 11:01 | RAD REPORT ---
EXAM DESCRIPTION: RAD - Chest Single View - 06/22/2021 10:53 am CLINICAL HISTORY: AMS COMPARISON: None TECHNIQUE: AP portable chest image was obtained 06/22/2021 10:53 am . FINDINGS: Lung volumes are low which accentuates lung base interstitial pattern. No dense mass or co nsolidations seen. A mild interstitial edema or infiltrate in the lung bases cannot be excluded. Uppe r lobe vasculature within normal limits. Heart size is normal. No measurable pleural effusion and no pneumothorax. No acute bony abnormality seen. No acute aortic findings suspected. IMPRESSION: No acute cardiopulmonary process. Low lung volumes could mask mild edema or infiltrate in either lung base.
[2021-06-22 11:04] LABS: Protime INR 1.07
[2021-06-22 11:19] LABS: ALT/SGPT 25 U/L (12-78); Albumin 3.7 g/dL (3.4-5.0); Alkaline Phosphatase 94 U/L (45-117); Amylase 128 U/L (25-115); BUN Blood Urea Nitrogen 15 mg/dL (7-18); Bicarbonate 29 mmol/L (21-32); Bilirubin Direct < 0.1 mg/dL (0-0.2); Bilirubin Total 0.3 mg/dL (0.2-1.0); Creatine Phosphokinase 106 U/L (39-308); Glucose Level 110 mg/dL (74-106); Lipase 180 U/L (73-393); Protein, Total 7.7 g/dL (6.4-8.2); Sodium Level 141 mmol/L (136-145)
[2021-06-22 11:20] LABS: AST/SGOT 20 U/L (15-37); CKMB Creatine Kinase MB < 1.0 ng/mL (1.0-3.6); Potassium 3.4 mmol/L (3.5-5.1)
[2021-06-22 11:58] LABS: SARS-COV-2 RT PCR NEGATIVE (NEGATIVE)
[2021-06-22] MEDS ORDERED: ACETAMINOPHEN 500 MG TAB ONE (12:03)
[2021-06-22] MEDS ORDERED: CEFTRIAXONE 1000 MG/VIAL ONE (12:04)
[2021-06-22] MEDS ORDERED: NA CHLORIDE 0.9% 50 ML ONE (12:11)
--- NOTE | 2021-06-22 12:13 | RAD REPORT ---
EXAM DESCRIPTION: CT - Head C Spine Cap W Con - 06/22/2021 11:33 am CLINICAL HISTORY: PAIN, AMS, head, neck, chest and abdomen pain COMPARISON: Chest Single View dated 06/22/2021; Head Brain Wo Cont dated 03/29/2020 TECHNIQUE: Axial [address] head images were obtained. Axial [address] cervical spine images were obtaine d with sagittal and coronal reconstruction images reviewed. During dynamic enhancement of 100mL non-i onic contrast, axial 5 mm images of the chest, abdomen and pelvis were obtained. Biphasic technique p erformed of the abdomen and pelvis. All CT scans are performed using dose optimization technique as appropriate and may include automated exposure control or mA/KV adjustment according to patient size. FINDINGS: No intracranial hemorrhage, mass or edema. No midline shift or abnormal fluid collection. No cortical edema or sulcal effacement. Patient has significant bifrontal and bitemporal atrophy. Umair tricles have increased in proportion. This is advanced for age. 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 Mastoid air cells and paranasal sinuses are clear of acute finding. No skull fracture. Cervical bodies are normal in height. There is a reversal of the usual cervical lordosis with the ape x at C4-5. C4-5 and C5-6 disc space narrowing present. No fracture or acute vertebral body finding id entifiable. Facet joints and uncovertebral joints have hypertrophic degenerative changes in the cervi celso spine. There is moderate right foraminal stenosis resulting at C2-3 with mild bilateral foraminal encroachment at C3-4 and C4-5. Mild C5-6 and C6-7 foraminal stenoses present as well. No paraspinal mass or hematoma seen. Central canal detail is inherently limited. Concerns for traumatic disc hernia tion or traumatic cord injury can be further addressed with MR imaging. CT chest shows no pneumothorax, pulmonary contusion or pleural fluid collection. Minimal nodular airs pace opacities are present in each lower lobe near the pleura. This is most likely atelectasis rather than infiltrate. Correlation can be made with any clinical or laboratory findings that might suggest early pneumonia, particularly in the posteromedial right lower lobe. No mediastinal hematoma and the aorta and pulmonary arteries are unremarkable. No chest will mass or abnormal axillary finding. No d isplaced rib fracture or other significant bony finding. CT abdomen and pelvis show no injury to solid abdominal viscera. No gallbladder or biliary tree abnor mality. Patient is status post right nephrectomy. No acute finding in the left renal parenchyma. No a cute bowel process identified. Urinary bladder is mostly contracted which limits assessment. Rounded masslike density near the trigone of the bladder is probably upper trophy from the prostate gland. Bl adder base masses lesser in likelihood. Correlation can be made with PSA values. Follow-up can be obt ained as warranted. No free air, free fluid or abnormal stranding. No urinary bladder abnormality. No vertebral body compression or acute bone process seen. No significant vascular finding. IMPRESSION: No acute intracranial finding identified. Patient has a frontotemporal dementia/Pick's d isease pattern that matches the 2020 study. Cervical spine degenerative changes are present as detailed. No acute findings. No acute traumatic chest findings. Patchy airspace opacities in the posterior aspect of the right low er lobe are favored to be atelectasis. Early pneumonia would be possible and needs correlation with c linical and laboratory findings. No acute or emergent abdomen or pelvis findings. Masslike density at the bladder base is believed to be from prostate enlargement. This can be correlated with PSA values and followed up as an outpatient as warranted.
[2021-06-22 12:42] LABS: Urine Blood Negative (Negative); Urine Glucose Negative (Negative); Urine Protein Negative (Negative); Urine Specific Gravity 1.015 (1.005-1.030)
[2021-06-22 12:53] LABS: Urine Bacteria NONE SEEN /HPF (NONE SEEN); Urine RBC NONE SEEN /HPF (NONE SEEN)
[2021-06-22 13:33] LABS: Blood Morphology Comment NOT SEEN (NOT SEEN); Platelet Estimate ADEQ; White Blood Cell Scan OK (OK)
--- NOTE | 2021-06-22 13:52 | ER ---
Nurse's Notes [facility] Name: Ron Murray Age: 66 yrs Sex: Male : 1955 Arrival Date: 06/22/2021 Time: 10:16 Bed 3 Private MD: Diagnosis: Fever, unspecified;Pneumonia, unspecified organism;Dehydration Presentation: 06/22 10:21 Chief complaint: EMS states: toned out to [facility], staff stated that vg1 'patient is just not himself this morning' and 'pt did not eat his breakfast'. States pt's norm is AO x2 and AMB but 'would not get out of bed this morning'. Staff stated pt was 'tachycardic' last night as well. This morning staff noticed pt was 'shaky'. EMS states BG was 104. Coronavirus screen: Vaccine status:. Ebola Screen: Patient negative for fever greater than or equal to 101.5 degrees Fahrenheit, and additional compatible Ebola Virus Disease symptoms. Initial Sepsis Screen: Does the patient meet any 2 criteria? RR > 20 per min. HR > 90 bpm. Yes Does the patient have a suspected source of infection? No. Patient's initial sepsis screen is negative. If YES to both, name of provider notified: Abundio Roblero MD. Risk Assessment: Do you want to hurt yourself or someone else? Patient reports no desire to harm self or others. Onset of symptoms was June 22, 2021. 10:21 Method Of Arrival: EMS: [facility] vg1 10:21 Acuity: DELILAH 3 vg1 11:06 Acuity: DELILAH 2 iw Triage Assessment: 11:01 General: Appears in no apparent distress. comfortable, Behavior is cooperative. Pain: vg1 Denies pain. Neuro: Level of Consciousness is awake, alert, obeys commands, Oriented to person, stated by [facility] pt orientation is to self. Historical: - Allergies: 11: No Known Allergies; vg1 - Home Meds: 11:01 amlodipine oral [Active]; Aricept Oral [Active]; Benztropine Mesylate Oral [Active]; vg1 Buspirone Oral [Active]; Coreg Oral [Active]; Docusate Sodium Oral [Active]; Hydrochlorothiazide Oral [Active]; Lipitor Oral [Active]; Lisinopril Oral [Active]; meloxicam oral [Active]; Namenda oral [Active]; polyethylene glycol 3350 oral [Active]; Risperdal Oral [Active]; Trazodone Oral [Active]; 12:01 No medication list sent from [facility] [Active]; eo2 - PMHx: 11:01 Alzheimers; cerebral ischemia; Dementia; Hyperlipidemia; Hypertension; osteoarthritis; vg1 - Immunization history:: Client reports receiving the 2nd dose of the Covid vaccine. - Social history:: Smoking status: unknown. Screenin:30 Abuse screen: unable to assess. Nutritional screening: unable to assess. Tuberculosis eo2 screening: unable to assess. Fall Risk Secondary diagnosis (15 points) dementia, IV access (20 points). Assessment: 10:30 General: Appears in no apparent distress. Behavior is calm, cooperative, quiet. Pain: eo2 Denies pain. Neuro: Level of Consciousness is awake, Oriented to person, Speech muffled. Cardiovascular: Capillary refill < 3 seconds Rhythm is sinus tachycardia. Respiratory: Airway is patent Trachea midline Respiratory effort is even, unlabored, Respiratory pattern is regular, symmetrical, Breath sounds are clear bilaterally. : diaper, incontinence. Musculoskeletal: generalized tremors. Vital Signs: 10:15 BP 121 / 83; Pulse 133; Resp 21; Pulse Ox 97% ; Pain 0/10; eo2 10:21 BP 134 / 84; Pulse 136; Resp 23; Temp 100.8; Pulse Ox 93% on R/A; vg1 10:30 BP 118 / 81; Pulse 130; Resp 20; Pulse Ox 97% ; eo2 10:45 BP 127 / 86; Pulse 131; Resp 22; Pulse Ox 96% ; eo2 11:00 Weight 66.5 kg; Height 5 ft. 10 in. (177.80 cm); eb 11:00 BP 120 / 70; Pulse 112; Resp 23; Pulse Ox 99% ; eo2 12:00 BP 117 / 80; Pulse 100; Resp 20; Pulse Ox 100% ; Pain 0/10; eo2 13:00 BP 123 / 83; Pulse 101; Resp 17; Pulse Ox 97% ; Pain 0/10; eo2 13:42 Temp 98.9; vg1 13:45 BP 113 / 80; Pulse 103; Resp 19; Pulse Ox 95% ; Pain 0/10; eo2 14:30 BP 128 / 79; Pulse 98; Resp 19; Pulse Ox 97% ; Pain 0/10; eo2 11:00 Body Mass Index 21.03 (66.50 kg, 177.80 cm) eb ED Course: 10:16 Patient arrived in ED. jj6 10:24 Abundio Roblero MD is Attending Physician. kdr 10:25 Inserted saline lock: 20 gauge in left antecubital area, using aseptic technique. eo2 ,using aseptic technique. placed BAD CLOTH CHECKER by EMS. 10:30 Patient has correct armband on for positive identification. cardiac monitor technician on. Pulse eo2 ox on. NIBP on. Door closed. Noise minimized. 10:30 No provider procedures requiring assistance completed. Inserted saline lock: 24 gauge eo2 in right forearm, using aseptic technique. Blood collected. 10:53 Chest Single View XRAY In Process Unspecified. EDMS 11:01 Triage completed. vg1 11:01 Arm band placed on. vg1 11:08 Lisette Jesus RN is Primary Nurse. eo2 11:09 COVID-19/FLU A+B (Document "Date of Onset" if Symptomatic) Sent. eo2 11:09 Amylase Sent. eo2 11:09 Basic Metabolic Panel Sent. eo2 11:09 Basic Metabolic Panel Sent. eo2 11:09 Amylase, Serum Sent. eo2 11:33 CT Traumagram (Head C Spine CAP W Con) In Process Unspecified. EDMS 13:43 Blood Culture Adult (2) Sent. eo2 14:37 Report given to Meenakshi JACOBS at [facility]. eo2 15:01 Report given to [facility]. eo2 15:01 IV discontinued, intact. eo2 Administered Medications: 11:05 Drug: NS 0.9% (30 ml/kg) 1995 ml Route: IV; Rate: bolus; Site: left antecubital; eo2 13:00 Follow up: Response: No adverse reaction; IV Status: Completed infusion; IV Intake: eo2 1994ml 12:10 Drug: Tylenol 1000 mg Route: PO; vg1 13:10 Follow up: Response: No adverse reaction; Temperature is decreased eo2 12:14 Drug: Rocephin - (cefTRIAXone) 1 grams Route: IVPB; Infused Over: 30 mins; Site: left eo2 forearm; 12:45 Follow up: Response: No adverse reaction; IV Status: Completed infusion; IV Intake: [id number] 13:56 Drug: Zithromax (azithromycin) 500 mg Route: PO; eo2 14:30 Follow up: Response: No adverse reaction eo2 Intake: 12:45 IV: 50ml; Total: 50ml. eo2 13:00 IV: 1995ml; Total: 2045ml. eo2 Outcome: 13:52 Discharge ordered by . desirae 15:01 Discharged to [facility]. Report called to Meenakshi JACOBS eo2 15:01 Condition: stable 15:01 Discharge instructions given to patient, family, EMS, Instructed on discharge instructions, follow up and referral plans. medication usage, Demonstrated understanding of instructions, follow-up care, medications, Prescriptions given X 1. 15:04 Patient left the ED. eo2 Signatures: Dispatcher [employer] EDMS Abundio Roblero MD MD kdr Jayashree Thibodeaux RN RN iw Botello, Elizabeth eb Garcia, Victoria, RN RN vg1 Kayla Block6 Lisette Jesus RN RN eo2
--- NOTE | 2021-06-22 13:52 | EDPHYS ---
Physician Documentation [facility] Name: Ron Murray Age: 66 yrs Sex: Male : 1955 Arrival Date: 06/22/2021 Time: 10:16 Bed 3 Private MD: ED Physician Abundio Roblero HPI: 06/22 18:22 This 66 yrs old Black Male presents to ER via EMS with complaints of Altered Mental kdr Status. 18:22 The patient presents with confusion, decreased mental status, decreased responsiveness. kdr Onset: The symptoms/episode began/occurred this morning, at an unknown time. Possible causes: CVA or TIA, seizure, sepsis. Associated signs and symptoms: The patient has no apparent associated signs or symptoms. Patient's baseline: Neuro: orientated to person, place, Motor: no deficits, Ambulation: walks with assist only, Speech: the patient can speak but doesn't make sense, slow, slurred. The patient has not experienced similar symptoms in the past. The patient has not recently seen a physician. Patient was called by the [facility] staff when they noted that he just did not seem to be himself today. He did not eat his breakfast as normal.. Patient is normally ANO x2 and ambulatory but would not get out of bed this morning. Patient was also noted to be tachycardic last night with a rate up to about 150 per EMS. On arrival the patient's heart rate was 1 20-1 30. They also were concerned that he has some shaking of his lower extremities.. Historical: - Allergies: 11:01 No Known Allergies; vg1 - Home Meds: 11:01 amlodipine oral [Active]; Aricept Oral [Active]; Benztropine Mesylate Oral [Active]; vg1 Buspirone Oral [Active]; Coreg Oral [Active]; Docusate Sodium Oral [Active]; Hydrochlorothiazide Oral [Active]; Lipitor Oral [Active]; Lisinopril Oral [Active]; meloxicam oral [Active]; Namenda oral [Active]; polyethylene glycol 3350 oral [Active]; Risperdal Oral [Active]; Trazodone Oral [Active]; 12:01 No medication list sent from [facility] [Active]; eo2 - PMHx: 11:01 Alzheimers; cerebral ischemia; Dementia; Hyperlipidemia; Hypertension; osteoarthritis; vg1 - Immunization history:: Client reports receiving the 2nd dose of the Covid vaccine. - Social history:: Smoking status: unknown. ROS: 18:22 Constitutional: Due to the patient's underlying dementia, he was a poor historian and kdr slow to extract information from. His who arrived sometime later, noted that there was not any significant recent health issues including fever, nausea, vomiting, diarrhea, cough and/or congestion or any other sign of current illness. Exam: 11:13 ECG was reviewed by the Attending Physician. kdr 18:22 Constitutional: This is a well developed, well nourished patient who is awake, kdr somewhat and in no acute distress. Vital Signs: 10:15 BP 121 / 83; Pulse 133; Resp 21; Pulse Ox 97% ; Pain 0/10; eo2 10:21 BP 134 / 84; Pulse 136; Resp 23; Temp 100.8; Pulse Ox 93% on R/A; vg1 10:30 BP 118 / 81; Pulse 130; Resp 20; Pulse Ox 97% ; eo2 10:45 BP 127 / 86; Pulse 131; Resp 22; Pulse Ox 96% ; eo2 11:00 Weight 66.5 kg; Height 5 ft. 10 in. (177.80 cm); eb 11:00 BP 120 / 70; Pulse 112; Resp 23; Pulse Ox 99% ; eo2 12:00 BP 117 / 80; Pulse 100; Resp 20; Pulse Ox 100% ; Pain 0/10; eo2 13:00 BP 123 / 83; Pulse 101; Resp 17; Pulse Ox 97% ; Pain 0/10; eo2 13:42 Temp 98.9; vg1 13:45 BP 113 / 80; Pulse 103; Resp 19; Pulse Ox 95% ; Pain 0/10; eo2 14:30 BP 128 / 79; Pulse 98; Resp 19; Pulse Ox 97% ; Pain 0/10; eo2 11:00 Body Mass Index 21.03 (66.50 kg, 177.80 cm) eb MDM: 13:52 Patient medically screened. kdr 19:09 Data reviewed: vital signs, nurses notes, lab test result(s), radiologic studies. kdr Counseling: I had a detailed discussion with the patient and/or guardian regarding: the historical points, exam findings, and any diagnostic results supporting the discharge/admit diagnosis, lab results, radiology results, the need for outpatient follow up. 06/22 10:31 Order name: Amylase, Serum kdr 06/22 10:31 Order name: Basic Metabolic Panel kdr 06/22 10:31 Order name: Blood Culture Adult (2) kdr 06/22 10:31 Order name: CBC with Diff; Complete Time: 13:38 kdr 06/22 10:31 Order name: CPK; Complete Time: 13:20 kdr 06/22 10:31 Order name: Ckmb; Complete Time: 13:20 kdr 06/22 10:31 Order name: LFT's; Complete Time: 13:20 kdr 06/22 10:31 Order name: Lactate; Complete Time: 13:20 kdr 06/22 10:31 Order name: Lipase; Complete Time: 13:20 kdr 06/22 10:31 Order name: Procalcitonin; Complete Time: 13:20 kdr 06/22 10:31 Order name: Protime (+inr); Complete Time: 13:20 kdr 06/22 10:31 Order name: Ptt, Activated; Complete Time: 13:20 kdr 06/22 10:31 Order name: Troponin HS; Complete Time: 13:20 kdr 06/22 10:31 Order name: Urine Microscopic Only; Complete Time: 13:20 kdr 06/22 10:31 Order name: Chest Single View XRAY; Complete Time: 13:20 kdr 06/22 10:31 Order name: Accucheck; Complete Time: 12:00 kdr 06/22 10:31 Order name: Cardiac monitoring; Complete Time: 11:09 kdr 06/22 10:31 Order name: EKG - Nurse/Tech; Complete Time: 11: kdr 06/22 10:31 Order name: IV Saline Lock - Large Bore; Complete Time: 11:09 kdr 06/22 10:31 Order name: Amylase; Complete Time: 13:20 EDMS 06/22 10:31 Order name: Basic Metabolic Panel; Complete Time: 13:20 EDMS 06/22 10:32 Order name: CT Traumagram (Head C Spine CAP W Con); Complete Time: 13:20 kdr 06/22 11:05 Order name: COVID-19/FLU A+B (Document "Date of Onset" if Symptomatic); Complete Time: iw 13:20 06/22 12:41 Order name: Urine Dipstick-Ancillary; Complete Time: 13:20 EDMS 06/22 13:33 Order name: CBC Smear Scan; Complete Time: 13:38 EDTN 06/22 10:31 Order name: Labs collected and sent; Complete Time: 11:09 kdr 06/22 10:31 Order name: O2 Per Protocol; Complete Time: 11:09 kdr 06/22 10:31 Order name: O2 Sat Monitoring; Complete Time: 11: kdr 06/22 10:31 Order name: Urine Dipstick-Ancillary (obtain specimen); Complete Time: 13:43 kdr EC:13 Rate is 127 beats/min. Rhythm is regular, Sinus tachycardia with No ectopy. QRS [place] is kdr Normal. [place] interval is normal. QRS interval is normal. QT interval is normal. Clinical impression: Sinus tachycardia. Administered Medications: 11:05 Drug: NS 0.9% (30 ml/kg) 1995 ml Route: IV; Rate: bolus; Site: left antecubital; eo2 13:00 Follow up: Response: No adverse reaction; IV Status: Completed infusion; IV Intake: eo2 1995ml 12:10 Drug: Tylenol 1000 mg Route: PO; vg1 13:10 Follow up: Response: No adverse reaction; Temperature is decreased eo2 12:14 Drug: Rocephin - (cefTRIAXone) 1 grams Route: IVPB; Infused Over: 30 mins; Site: left eo2 forearm; 12:45 Follow up: Response: No adverse reaction; IV Status: Completed infusion; IV Intake: [id number] 13:56 Drug: Zithromax (azithromycin) 500 mg Route: PO; eo2 14:30 Follow up: Response: No adverse reaction eo2 Disposition Summary: 06/22/21 13:52 Discharge Ordered Location: Home kdr Problem: new kdr Symptoms: have improved kdr Condition: Stable kdr Diagnosis - Fever, unspecified kdr - Pneumonia, unspecified organism kdr - Dehydration kdr Followup: kdr - With: Private Physician - When: 2 - 3 days - Reason: If symptoms return, Further diagnostic work-up, Recheck today's complaints, Continuance of care, Re-evaluation by your physician Discharge Instructions: - Discharge Summary Sheet kdr - Dehydration, Elderly kdr - Fever, Adult kdr - Community-Acquired Pneumonia, Adult kdr Forms: - Medication Reconciliation Form kdr - Thank You Letter kdr - Antibiotic Education kdr Prescriptions: - Zithromax Z-Sae 250 mg Oral Tablet - take 1 tablet by ORAL route once daily for 4 days; 4 tablet; Refills: 0, kdr Product Selection Permitted Signatures: Dispatcher [employer] Abundio Au MD MD kdr Garcia, Victoria RN RN vg1 Lisette Jesus RN RN eo2
[2021-06-22] MEDS ORDERED: AZITHROMYCIN 250 MG TAB ONE (13:57)
[2021-06-22 15:19] VITALS: TEMP 98.9
[2021-06-22 15:21] VITALS: BP 128/79; O2SAT 97
== END 2021-06-22 15:04 | disposition home or self-care (01) ==
LOC: ER 10:14
DX: J18.9 Pneumonia, unspecified organism (principal); E86.0 Dehydration; G30.9 Alzheimer's disease, unspecified; F02.80 Dementia in other diseases classified elsewhere, unspecified severity, without behavioral disturbance, psychotic disturbance, mood disturbance, and anxiety; I10 Essential (primary) hypertension; E78.5 Hyperlipidemia, unspecified; Z20.822 Contact with and (suspected) exposure to COVID-19
CPT/HCPCS: 93005; 87040 ×2; 85025; 80048; 36415; 82150; 82550; 85610; 82565; 80076; 83605; 85730; 84484; 82553; 83690; 84145; 0240U; 70450; 72125; 71260; 74177; 71045; 99285; Q9967; J7030 ×2; 81003; 81015

== ENCOUNTER 2021-11-07 09:56 | Emergency (ER) | payer OTHER ==
[2021-11-07 10:38] LABS: Absolute Lymphocytes (CBC) 0.8 K/uL (0.7-4.9); Hematocrit 33.5 % (39.6-49.0); Lymphocytes % 27.6 % (15.3-44.8); MCV 90.3 fL (80-100); MPV 7.7 fL (7.6-11.3); RBC Red Blood Cell Count 3.71 M/uL (4.33-5.43)
[2021-11-07 10:58] LABS: Potassium 3.3 mmol/L (3.5-5.1); Troponin High Sensitivity 9.2 pg/mL (<58.9)
--- NOTE | 2021-11-07 11:13 | RAD REPORT ---
EXAM DESCRIPTION: RAD - Chest Single View - 11/07/2021 10:45 am CLINICAL HISTORY: CONGESTION COMPARISON: Chest Single View dated 06/22/2021 FINDINGS: Lines: None. Lungs: No evidence of edema or pneumonia. Prominent interstitial markings at the lung bases is simila r to 06/22/2021. Pleural: No significant pleural effusions or pneumothorax. Cardiac: The heart size is within normal limits. Bones: No acute fractures. Other: IMPRESSION: No acute cardiopulmonary disease. Similar findings to 06/22/2021.
[2021-11-07 11:42] LABS: Urine Blood Negative (Negative); Urine Glucose Negative (Negative); Urine Protein 1+ (Negative); Urine pH 6.5 (5.0-7.0)
--- NOTE | 2021-11-07 12:37 | EDPHYS ---
Physician Documentation [facility] Name: Ron Murray Age: 66 yrs Sex: Male : 1955 Arrival Date: 11/07/2021 Time: 10: Bed 4 Private MD: ED Physician Abundio Roblero HPI: 11/07 10:22 This 66 yrs old Black Male presents to ER via EMS with complaints of Decreased Appetite.kdr 10:22 The patient was sent from the retirement for possible altered mental status. Patient kdr is nonverbal but does respond slowly to questions. Patient denies any current complaints or issues. He does seem to have a course cough but is otherwise she is nonproductive. Onset: The symptoms/episode began/occurred at an unknown time. Severity of symptoms: At their worst the symptoms were very mild in the emergency department the symptoms are unchanged. It is unknown whether or not the patient has had similar symptoms in the past. It is unknown whether or not the patient has recently seen a physician. Historical: - Allergies: 10:03 No Known Allergies; bp - PMHx: 10:03 Alzheimers; Dementia; cerebral ischemia; Hyperlipidemia; Hypertension; osteoarthritis; bp - Immunization history:: Adult Immunizations up to date. - Social history:: Smoking status: unknown. ROS: 10:22 Constitutional: Difficult to assess as the patient is nonverbal kdr 10:22 Unable to obtain ROS due to baseline dementia. Exam: 10:24 Constitutional: This is a well developed, well nourished patient who is awake, alert, kdr and in no acute distress. Head/Face: Normocephalic, atraumatic. Eyes: Pupils equal round and reactive to light, extra-ocular motions intact. Lids and lashes normal. Conjunctiva and sclera are non-icteric and not injected. Cornea within normal limits. Periorbital areas with no swelling, redness, or edema. Neck: Trachea midline, no thyromegaly or masses palpated, and no cervical lymphadenopathy. Supple, full range of motion without nuchal rigidity, or vertebral point tenderness. No Meningismus. Chest/axilla: Normal chest wall appearance and motion. Nontender with no deformity. No lesions are appreciated. Cardiovascular: Regular rate and rhythm with a normal S1 and S2. No gallops, murmurs, or rubs. Normal PMI, no JVD. No pulse deficits. Abdomen/GI: Soft, non-tender, with normal bowel sounds. No distension or tympany. No guarding or rebound. No evidence of tenderness throughout. Back: No spinal tenderness. No costovertebral tenderness. Full range of motion. Skin: Warm, dry with normal turgor. Normal color with no rashes, no lesions, and no evidence of cellulitis. Vital Signs: 10:01 BP 125 / 75; Pulse 70; Resp 16; Temp 97.8; Pulse Ox 96% ; bp 10:58 BP 120 / 82; Pulse 73; Resp 16; Pulse Ox 98% ; bp 11:00 BP 120 / 78; Pulse 70; Resp 16; Pulse Ox 98% ; bp 12:59 BP 113 / 75; Pulse 67; Resp 17; Pulse Ox 99% ; bp MDM: 10:24 Data reviewed: vital signs, nurses notes, lab test result(s), radiologic studies. kdr Counseling: I had a detailed discussion with the patient and/or guardian regarding: the historical points, exam findings, and any diagnostic results supporting the discharge/admit diagnosis, lab results, radiology results. 12:36 Patient medically screened. kdr 11/07 10:12 Order name: Basic Metabolic Panel; Complete Time: 11:06 kdr 11/07 10:12 Order name: CBC with Diff; Complete Time: 11:06 kdr 11/07 10:12 Order name: Troponin HS; Complete Time: 11:06 kdr 11/07 10:12 Order name: XRAY Chest (1 view); Complete Time: 11:58 kdr 11/07 10:12 Order name: Urine Culture kdr 11/07 11:43 Order name: Urine Dipstick-Ancillary; Complete Time: 11:58 EDMS 11/07 10:12 Order name: IV Saline Lock; Complete Time: 10:26 kdr 11/07 10:12 Order name: Labs collected and sent; Complete Time: 10:26 kdr 11/07 10:12 Order name: Urine Dipstick-Ancillary (obtain specimen); Complete Time: 11:45 kdr Administered Medications: 12:45 Drug: Zithromax (azithromycin) 500 mg Route: PO; bp 13:02 Follow up: Response: No adverse reaction bp Disposition Summary: 11/07/21 12:36 Discharge Ordered Location: Home kdr Problem: an ongoing problem kdr Symptoms: are unchanged kdr Condition: Stable kdr Diagnosis - Other malaise and fatigue kdr - Acute bronchitis, unspecified kdr Followup: kdr - With: Private Physician - When: 2 - 3 days - Reason: If symptoms return, Further diagnostic work-up, Recheck today's complaints, Continuance of care, Re-evaluation by your physician Discharge Instructions: - Discharge Summary Sheet kdr - Acute Bronchitis, Adult, [id number] kdr - Weakness, [id number] kdr Forms: - Medication Reconciliation Form kdr - Thank You Letter kdr - Antibiotic Education kdr Prescriptions: - Zithromax Z-Sae 250 mg Oral Tablet - take 1 tablet by ORAL route once daily for 4 days; 4 tablet; Refills: 0, kdr Product Selection Permitted Signatures: Dispatcher [employer] Abundio Au MD MD kdr Nabil Norman, RN RN bp
--- NOTE | 2021-11-07 12:37 | ER ---
Nurse's Notes [facility] Name: Ron Murray Age: 66 yrs Sex: Male : 1955 Arrival Date: 11/07/2021 Time: 10:01 Bed 4 Private MD: Diagnosis: Other malaise and fatigue;Acute bronchitis, unspecified Presentation: 11/07 10:01 Chief complaint: EMS states: DECREASED APPETITE x5 DAYS WITH +COVID. Coronavirus bp screen: Client reports previous positive COVID test result. Ebola Screen: No symptoms or risks identified at this time. Initial Sepsis Screen: Does the patient meet any 2 criteria? No. Patient's initial sepsis screen is negative. Does the patient have a suspected source of infection? No. Patient's initial sepsis screen is negative. Risk Assessment: Do you want to hurt yourself or someone else? Patient reports no desire to harm self or others. Onset of symptoms is unknown. Care prior to arrival: Glucose check: 121. 10:01 Method Of Arrival: EMS: [facility] bp 10:01 Acuity: DELILAH 4 bp Triage Assessment: 10:03 General: Appears in no apparent distress. comfortable, Behavior is calm. Pain: Denies bp pain. EENT: No deficits noted. Neuro: No deficits noted. Cardiovascular: No deficits noted. Respiratory: No deficits noted. GI: No signs and/or symptoms were reported involving the gastrointestinal system. : No signs and/or symptoms were reported regarding the genitourinary system. Derm: No deficits noted. Musculoskeletal: No deficits noted. Historical: - Allergies: 10:03 No Known Allergies; bp - PMHx: 10:03 Alzheimers; Dementia; cerebral ischemia; Hyperlipidemia; Hypertension; osteoarthritis; bp - Immunization history:: Adult Immunizations up to date. - Social history:: Smoking status: unknown. Screenin:03 Abuse screen: Denies threats or abuse. Denies injuries from another. Nutritional bp screening: No deficits noted. Tuberculosis screening: No symptoms or risk factors identified. Fall Risk None identified. Assessment: 10:03 General: SEE TRIAGE NOTE. bp 10:59 Reassessment: No changes from previously documented assessment. Patient and/or family bp updated on plan of care and expected duration. Pain level reassessed. 13:00 Reassessment: PT D/C VIA EMS TO [place]. ATTEMPTED TO CALL REPORT/CLINICALS x3 bp UNSUCCESSFULLY TO [facility]. Vital Signs: 10:01 BP 125 / 75; Pulse 70; Resp 16; Temp 97.8; Pulse Ox 96% ; bp 10:58 BP 120 / 82; Pulse 73; Resp 16; Pulse Ox 98% ; bp 11:00 BP 120 / 78; Pulse 70; Resp 16; Pulse Ox 98% ; bp 12:59 BP 113 / 75; Pulse 67; Resp 17; Pulse Ox 99% ; bp ED Course: 10:01 Patient arrived in ED. bp 10:01 Abundio Roblero MD is Attending Physician. kdr 10:03 Triage completed. bp 10:03 Arm band placed on. bp 10:03 Patient has correct armband on for positive identification. Bed in low position. Call bp light in reach. Side rails up X2. 10:06 Nabil Norman, RN is Primary Nurse. bp 10:23 Initial lab(s) drawn, by [facility], sent to lab. Inserted saline lock: 20 gauge in left 3 antecubital area, using aseptic technique. Blood collected. 10:47 XRAY Chest (1 view) In Process Unspecified. EDMS 11:45 Urine Culture Sent. bp 13:01 No provider procedures requiring assistance completed. IV discontinued, intact, bp bleeding controlled, No redness/swelling at site. Pressure dressing applied. Administered Medications: 12:45 Drug: Zithromax (azithromycin) 500 mg Route: PO; bp 13:02 Follow up: Response: No adverse reaction bp Medication: 10:03 VIS not applicable for this client. bp Outcome: 12:36 Discharge ordered by . kdr 13:01 Discharged to residential. Transfer form completed. bp 13:01 Condition: stable 13:01 Discharge instructions given to residential, Instructed on discharge instructions, follow up and referral plans. medication usage, Demonstrated understanding of instructions, follow-up care, medications, Prescriptions given X 1. 13:04 Patient left the ED. bp Signatures: Dispatcher [employer] EDMS Abundio Roblero MD MD [facility] Debo Helton [facility] Nabil Norman, RN RN bp
[2021-11-07] MEDS ORDERED: AZITHROMYCIN 250 MG TAB ONE (12:58)
[2021-11-07 13:12] VITALS: TEMP 97.8
[2021-11-07 13:22] VITALS: BP 113/75; O2SAT 99
== END 2021-11-07 13:04 | disposition home or self-care (01) ==
LOC: ER 09:56
DX: J20.9 Acute bronchitis, unspecified (principal); R53.81 Other malaise; R53.83 Other fatigue; G30.9 Alzheimer's disease, unspecified; F02.80 Dementia in other diseases classified elsewhere, unspecified severity, without behavioral disturbance, psychotic disturbance, mood disturbance, and anxiety; I10 Essential (primary) hypertension
CPT/HCPCS: 36415; 71045; 80048; 81003; 84484; 85025; 87086; 87088; 99284

== ENCOUNTER 2022-01-01 08:59 | Emergency (ER) | payer OTHER ==
--- OUTSIDE RECORDS SUMMARY | 2022-01-01 09:04 | XMS REPORT | Continuity of Care Document ---
:1955 Author Organization [facility] t Address [address] [place] [address] Care Team Providers Name Role Phone DR FACUNDO JOHN Attending Clinician Unavailable DARLENE Attending Clinician Unavailable DR FACUNDO JOHN Admitting Clinician Unavailable DARLENE Admitting Clinician Unavailable Payers Payer Name Policy Type Policy Number Effective Date Expiration Date S ource Problems This patient has no known problems. Allergies, Adverse Reactions, Alerts Allergy Allergy Status Severity Reaction(s) Onset Inactive Treating Comm ents Source Name Type Date Date Clinician No Known DA Active U 2019-05 [facility] Allerg 05-18 00:00: [address] No Known DA Active U 2019-05 [facility] Allerg 05-18 [facility] 00:00: [address] No Known DA Active [facility] Medications This patient has no known medications. [...] Type Clinicians Facility Department ID 2020-04-03 Inpatient SU PERALTA [id number] [facility] 13:14:00 [facility] 2020-03-18 Inpatient HCAWU TAWANNA [id number] [facility] 11:43:00 [facility] 2021-06-04 2021-06-04 Outpatient JAMES WARE [facility] [address] 12:18:00 12:18:00 _ANN 0126 da [facility] h Program Results Test Description Test Time Test [...] the FDA and the [employer] [place] [employer] (CAP) are more stringent than those required for this test. Therefore, the result should be interpreted with caution and close attention to other clinical and epidemiological data GLUCOMETER GLUCOSE- LAB USE [id number] 07:28:00 Test Item Value Reference Range Interpretation Comments GLUCOMETER (test code 102 mg/dL 70-100 H CLEANE D METERMeter ID: = GMG) [id number] tor: 3912 PENDING S[facility] TO [facility] PAT B12 [id number] 18:26:00 Test Item Value Reference Range Interpretation Comments VIT B12 (test code = A60) 459.0 pg/mL 180.0-914.0 [id number] 18:26:00 Test Item Value Reference Range Interpretation Comments FOLATE (test code = A75) 15.0 ng/mL 3.1-17.5 LIPID [id number] 18:26:00 Test Item Value Reference Range Interpretation [...] (test code = A57) 0.610 uIU/mL 0.358-3.740 [id number] 18:18:00 Test Item Value Reference Range Interpretation Comments MAGNESIUM (test code = 48A) 2.2 mg/dL 1.8-2.4 [id number] 18:18:00 Test Item Value Reference Range Interpretation Comments PREALBUMIN (test code = 08E) 34 mg/dL 18-38 [id number] 18:05:00 Test Item Value Reference Range Interpretation Comments Hb A1C % (test code 4.7 % 3.8-6.4 = HBA) A1C % (test code = HbA1c (% ) A1C) Reference Range Normal <5.7 Prediabetes 5.7-6.4 Diabetic >=6.5 [id number] 11:51:00 Test Item Value Reference Range Interpretation Comments ACETAMINPH (test code = 94M) <2.0 ug/mL 10.0-30.0 L [id number] 11:49:00 Test Item Value Reference Range Interpretation Comments FERRITIN (test code = A19) 521.4 ng/mL 26.0-388.0 H LDH-LACTIC [id number] 11:49:00 Test Item Value Reference Range Interpretation Comments LDH (test code = 33A) 241 IU/L 87-241 C-REACTIVE PROTEIN [id number] 11:41:00 Test Item Value Reference Range Interpretation Comments CRP QUANT (test code <2.9 mg/L 0.0-2.9 = CRPQ) Method Change (test Please note the code = METHOD) change in Method and the reference range COMPREHENSIVE METABOLIC [id number] 11:41:00 Test Item Value Reference Range Interpretation [...] (test code = 31A) 36 IU/L <=78 [id number] 11:41:00 Test Item Value Reference Range Interpretation Comments SALICYLATE (test code = 94B) <1.7 mg/dL 2.8-20.0 L ALCOHOL BLOOD (ETOH)2020-04-03 11:38:00 Test Item Value Reference Range Interpretation Comments ETOH (test code = HALC) ETHANOL The result is to be used only for medical purposes ALCOHOL (test code = <10 mg/dL <=10 56A) CARDIAC [id number] 11:37:00 Test Item Value Reference Range Interpretation [...] the FDA and the [employer] [place] [employer] (CAP) are more stringent than those required for this test. Therefore, the result should be interpreted with caution and close attention to other clinical and epidemiological data AMMONIA [id number] 11:32:00 Test Item Value Reference Range Interpretation Comments AMMONIA (test code = 54A) 18 umol/L 11-32 PRO TIME AND [id number] 11:26:00 Test Item Value Reference Range Interpretation Comments PT (test code = 10.6 s 9.8-13.6 TT) INR (test code = 0.9 INR) INRH (test code = SUGGESTED THERAPEUTIC INRH) RANGE FOR INR: 2.5 - 3.5 For Patients with Prosthetic Valves or Patients with recurrent Thromboembolic Events 2.0 - 3.0 For Most Other Applications PTT (test code = 34.3 s 20.2-38.0 PTT) PTTH (test code = To monitor the PTTH) effectiveness of heparin, we offer the Anti-Xa (Heparin Assay). It can be used for either unfractionated or LMW Heparin. Order Code is ANTI-XA [id number] 11:26:00 Test Item Value Reference Range Interpretation [...] = RBCMOR) NORMAL - CT HEAD/BRAIN W/O [id number] 14:32:00 [facility] : 1955 Sex: M Patient Name: JENNIFER BARTHOLOMEW Unit No: [id number] EXAMS: CPT CODE: [id number] CT HEAD/BRAIN W/O CONT 38724DG HEAD WITHOUT CONTRAST CLINICAL HISTORY: Psych clearance, [...] compensatory widening of the sulci and ventricles. Mode rate periventricular and subcortical white matter low-attenuation changes are nonspecific but may reflect chronic microvascular ischemic disease. No mass effect or midline shift is seen. There is no acute intracranial hemorrhage. The cranial vault and skull base are intact. The paranasal sinuses and mastoid air cells are pneumatized and well-aerated. IMPRESSION: 1. Moderate cerebral atrophy, predominantly affecting the frontotemporal lobes. 2. No acute intracranial hemorrhage. 3. Chronic microvascular ischemic disease. Location: R16 at 1432 Reported and signed by: Tom Babin M.D. CC: Dustin Womack MD Technologist: Venkatesh West, RT(R); Vinnie CTDI: DLP: Trnscrpt: 03/18/2020 (1432) [email or web address] [facility] Claudio NAME: JENNIFER BARTHOLOMEW [id number] PHYS: [place] [address] : 1955 AGE: 64 SEX: M LOC: Trace.ERS PHONE #: [phone] EXAM DATE: 03/18/2020 STATUS: REG ER FAX #: [phone] RAD #: D/C DT PAGE 1 Signed Report Patient Name: JENNIFER BARTHOLOMEW Unit No: [id number] EXAMS: CPTCODE: [id number] CT HEAD/BRAIN W/O CONT 12331 (Continued) Orig Print D/T: S: 03/18/2020 (1435) [facility] Claudio NAME: JENNIFER BARTHOLOMEW [id number] PHYS: Dustin Mares MD [place] [id number] : 1955 AGE: 64 SEX: M LOC: Z.ERS PHONE #: [phone] EXAM DATE: 03/18/2020 STATUS: REG ER FAX #: [phone] RAD #: D/C DT PAGE 2 Signed ReportCOVID 19 Asymptomatic IH [id number] 13:50:00 Test Item Value Reference Range Interpretation Comments COVID 19 NEGATIVE Negative "Negative resul ts from Asymptomatic IH AG patients with symptom (test code = onset beyondfiv e days, COVNONPUIAG) should be treat ed as presumptive, andconfirmation with a molecular assay [...] virus (antigen) in the sample." BASIC METABOLIC [id number] 13:40:00 Test Item Value Reference Range Interpretation [...] 9.7 MG/DL 8.4-10.2 N CA) HEPATIC FUNCTION [id number] 13:40:00 Test Item Value Reference Range Interpretation Comments TOTAL PROTEIN (test 8.2 G/DL 6.2-7.6 H code = PROT) ALBUMIN (test code = 4.6 G/DL 3.5-5.0 N ALB) BILIRUBIN TOTAL (test 0.5 MG/DL 0.2-1.3 N Eltrom bopag code = BILT) Interference fo r Vitros Product TBil, BuBc: ======= ======= ======A ssay Eltrombopa g Analyte/ Max Ob served Avg. Bias Concentration Concentration Concentration== ======= ======= ======= =======TBil 7mg /dl TBil/ 1.2mg/dl +0.23mg.dl +0.20mg/dlBuBc 3.5mg/dl Bu/0.8 mg/dl +0.25mg/dl +0.24mg/dlBuBc 7 mg/dl Bu/14.2mg/dl +0.38mg/dl +0.25mg/dlBuBc 5mg/dl Bc/0mg/dl +0.25 mg/dl +0.15mg/dlBuBc 3.5mg/dl Bc/2.8 mg/dl +0.25mg/dl +0.2 3mg/dl BILIRUBIN DIRECT 0.0 MG/DL 0.0-0.3 N Eltrombopag (test code = BILD) Interfere nce for Vitros Product TBil, BuBc: ======= ======= ======A ssay Eltrombopa g Analyte/ Max Ob served Avg. Bias Concentration Concentration Concentration== ======= ======= ======= =======TBil 7mg /dl TBil/ 1.2mg/dl +0.23mg.dl +0.20mg/dlBuBc 3.5mg/dl Bu/0.8 mg/dl +0.25mg/dl +0.24mg/dlBuBc 7 mg/dl Bu/14.2mg/dl +0.38mg/dl +0.25mg/dlBuBc 5mg/dl Bc/0mg/dl +0.25 mg/dl +0.15mg/dlBuBc 3.5mg/dl Bc/2.8 mg/dl +0.25mg/dl +0.2 3mg/dl SGOT/AST (test code = 33 UNITS/L 17-59 N AST) SGPT/ALT (test code = 29 UNITS/L <50 ALT) ALKALINE PHOSPHATASE 78 UNITS/L 38-126 N (test code = ALKP) [id number] 13:40:00 Test Item Value Reference Range Interpretation Comments TROPONIN-I (test code = TROPI) 0.013 NG/ML 0.012-0.033 N [id number] 13:40:00 Test Item Value Reference Range Interpretation Comments ACETAMINOPHEN (test code = < 10.0 MCG/ML 10-30 L ACET) [id number] 13:40:00 Test Item Value Reference Range Interpretation Comments SALICYLATE (test code = ROBER) < 1.0 MG/DL <2.0 [id number] 13:40:00 Test Item Value Reference Range Interpretation Comments ALCOHOL (test code = ALC) < 10.0 MG/DL <10 BASIC METABOLIC [id number] 13:30:00 Test Item Value Reference Range Interpretation [...] 9.7 MG/DL 8.4-10.2 N CA) HEPATIC FUNCTION [id number] 13:30:00 Test Item Value Reference Range Interpretation Comments TOTAL PROTEIN (test 8.2 G/DL 6.2-7.6 H code = PROT) ALBUMIN (test code = 4.6 G/DL 3.5-5.0 N ALB) BILIRUBIN TOTAL (test 0.5 MG/DL 0.2-1.3 N Eltrom bopag code = BILT) Interference fo r Vitros Product TBil, BuBc: ======= ======= ======A ssay Eltrombopa g Analyte/ Max O bserved Avg. Bias Concentration Concentration Concentration== ======= ======= ======= =======TBil 7mg /dl TBil/ 1.2mg/dl +0.23mg.dl +0.20mg/dlBuBc 3.5mg/dl Bu/0.8 mg/dl +0.25mg/dl +0.24mg/dlBuBc 7 mg/dl Bu/14.2mg/dl +0.38mg/dl +0.25mg/dlBuBc 5mg/dl Bc/0mg/dl +0.25 mg/dl +0.15mg/dlBuBc 3.5mg/dl Bc/2. 8mg/dl +0.25mg/dl +0.2 3mg/dl BILIRUBIN DIRECT 0.0 MG/DL 0.0-0.3 N Eltrombopag (test code = BILD) Interfere nce for Vitros Product TBil, BuBc: ======= ======= ======A ssay Eltrombopa g Analyte/ Max Ob served Avg. Bias Concentration Concentration Concentration== ======= ======= ======= =======TBil 7mg /dl TBil/ 1.2mg/dl +0.23mg.dl +0.20mg/dlBuBc 3.5mg/dl Bu/0.8 mg/dl +0.25mg/dl +0.24mg/dlBuBc 7 mg/dl Bu/14.2mg/dl +0.38mg/dl +0.25mg/dlBuBc 5mg/dl Bc/0mg/dl +0.25 mg/dl +0.15mg/dlBuBc 3.5mg/dl Bc/2.8 mg/dl +0.25mg/dl +0.2 3mg/dl SGOT/AST (test code = 33 UNITS/L 17-59 N AST) SGPT/ALT (test code = 29 UNITS/L <50 ALT) ALKALINE PHOSPHATASE 78 UNITS/L 38-126 N (test code = ALKP) [id number] 13:30:00 Test Item Value Reference Range Interpretation Comments TROPONIN-I (test code = TROPI) NG/ML 0.0-0.045 [id number] 13:30:00 Test Item Value Reference Range Interpretation Comments ACETAMINOPHEN (test code = < 10.0 MCG/ML 10-30 L ACET) [id number] 13:30:00 Test Item Value Reference Range Interpretation Comments SALICYLATE (test code = ROBER) < 1.0 MG/DL <2.0 [id number] 13:30:00 Test Item Value Reference Range Interpretation Comments ALCOHOL (test code = ALC) < 10.0 MG/DL <10 URINALYSIS [id number] 13:29:00 Test Item Value Reference Range Interpretation [...] OF URINE: CLEAN CATCHDRUGS OF ABUSE SCREEN [id number] 13:29:00 Test Item Value Reference Range Interpretation [...] ng/mL SOURCE OF URINE: CLEAN CATCHBASIC METABOLIC [id number] 13:29:00 Test Item Value Reference Range Interpretation [...] 9.7 MG/DL 8.4-10.2 N CA) HEPATIC FUNCTION [id number] 13:29:00 Test Item Value Reference Range Interpretation Comments TOTAL PROTEIN (test 8.2 G/DL 6.2-7.6 H code = PROT) ALBUMIN (test code = 4.6 G/DL 3.5-5.0 N ALB) BILIRUBIN TOTAL (test 0.5 MG/DL 0.2-1.3 N Eltrom bopag code = BILT) Interference fo r Vitros Product TBil, BuBc: ======= ======= ======A ssay Eltrombopa g Analyte/ Max Ob served Avg. Bias Concentration Concentration Concentration== ======= ======= ======= =======TBil 7mg /dl TBil/ 1.2mg/dl +0.23mg.dl +0.20mg/dlBuBc 3.5mg/dl Bu/0.8 mg/dl +0.25mg/dl +0.24mg/dlBuBc 7 mg/dl Bu/14.2mg/dl +0.38mg/dl +0.25mg/dlBuBc 5mg/dl Bc/0mg/dl +0.25 mg/dl +0.15mg/dlBuBc 3.5mg/dl Bc/2.8 mg/dl +0.25mg/dl +0.2 3mg/dl BILIRUBIN DIRECT 0.0 MG/DL 0.0-0.3 N Eltrombopag (test code = BILD) Interfere nce for Vitros Product TBil, BuBc: ======= ======= ======A ssay Eltrombopa g Analyte/ Max Ob served Avg. Bias Concentration Concentration Concentration== ======= ======= ======= =======TBil 7mg /dl TBil/ 1.2mg/dl +0.23mg.dl +0.20mg/dlBuBc 3.5mg/dl Bu/0.8 mg/dl +0.25mg/dl +0.24mg/dlBuBc 7 mg/dl Bu/14.2mg/dl +0.38mg/dl +0.25mg/dlBuBc 5mg/dl Bc/0mg/dl +0.25 mg/dl +0.15mg/dlBuBc 3.5mg/dl Bc/2.8 mg/dl +0.25mg/dl +0.2 3mg/dl SGOT/AST (test code = 33 UNITS/L 17-59 N AST) SGPT/ALT (test code = 29 UNITS/L <50 ALT) ALKALINE PHOSPHATASE 78 UNITS/L 38-126 N (test code = ALKP) [id number] 13:29:00 Test Item Value Reference Range Interpretation Comments TROPONIN-I (test code = TROPI) NG/ML 0.0-0.045 [id number] 13:29:00 Test Item Value Reference Range Interpretation Comments ACETAMINOPHEN (test code = < 10.0 MCG/ML 10-30 L ACET) [id number] 13:29:00 Test Item Value Reference Range Interpretation Comments SALICYLATE (test code = ROBER) < 1.0 MG/DL <2.0 [id number] 13:29:00 Test Item Value Reference Range Interpretation Comments ALCOHOL (test code = ALC) MG/DL <10 BASIC METABOLIC [id number] 13:28:00 Test Item Value Reference Range Interpretation [...] code = MG/DL 8.7-9.7 CA) HEPATIC FUNCTION [id number] 13:28:00 Test Item Value Reference Range Interpretation Comments TOTAL PROTEIN (test G/DL 6.2-7.6 code = PROT) ALBUMIN (test code = 4.6 G/DL 3.5-5.0 N ALB) BILIRUBIN TOTAL (test 0.5 MG/DL 0.2-1.3 N Eltrom bopag code = BILT) Interference fo r Vitros Product TBil, BuBc: ======== ======== ====Assa y Eltrombopag A nalyte/ Max Observed Av g. Bias Concentration Concentration Concentration== ======== ======== ======== ====TBil 7mg/dl TBil/ 1.2mg/dl +0.23m g.dl +0.20mg/dlBuBc 3.5mg/dl Bu/0.8mg/dl +0. 25mg/dl +0.24mg/dlBuBc 7 mg/dl Bu/14.2mg/dl +0 .38mg/dl +0.25mg/dlBuBc 5mg/dl Bc/0mg/dl +0.25 mg/dl +0.15mg/dlBuBc 3.5mg/dl Bc/2.8mg/dl +0. 25mg/dl +0.23mg/dl BILIRUBIN DIRECT 0.0 MG/DL 0.0-0.3 N Eltrombopag (test code = BILD) Interfere nce for Vitros Product TBil, BuBc: ======== ======== ====Assa y Eltrombopag A nalyte/ Max Observed Av g. Bias Concentration Concentration Concentration== ======== ======== ======== ====TBil 7mg/dl TBil/ 1.2mg/dl +0.23m g.dl +0.20mg/dlBuBc 3.5mg/dl Bu/0.8mg/dl +0. 25mg/dl +0.24mg/dlBuBc 7 mg/dl Bu/14.2mg/dl +0 .38mg/dl +0.25mg/dlBuBc 5mg/dl Bc/0mg/dl +0.25 mg/dl +0.15mg/dlBuBc 3.5mg/dl Bc/2.8mg/dl +0. 25mg/dl +0.23mg/dl SGOT/AST (test code = UNITS/L 15-37 AST) SGPT/ALT (test code = UNITS/L <50 ALT) ALKALINE PHOSPHATASE UNITS/L 38-126 (test code = ALKP) [id number] 13:28:00 Test Item Value Reference Range Interpretation Comments TROPONIN-I (test code = TROPI) NG/ML 0.0-0.045 [id number] 13:28:00 Test Item Value Reference Range Interpretation Comments ACETAMINOPHEN (test code = ACET) MCG/ML 10-30 [id number] 13:28:00 Test Item Value Reference Range Interpretation Comments SALICYLATE (test code = ROBER) MG/DL <2.0 [id number] 13:28:00 Test Item Value Reference Range Interpretation Comments ALCOHOL (test code = ALC) MG/DL <10 URINALYSIS [id number] 13:28:00 Test Item Value Reference Range Interpretation [...] OF URINE: CLEAN CATCHDRUGS OF ABUSE SCREEN [id number] 13:28:00 Test Item Value Reference Range Interpretation [...] = PHENCU) SOURCE OF URINE: CLEAN CATCHURINALYSIS [id number] 13:27:00 Test Item Value Reference Range Interpretation [...] OF URINE: CLEAN CATCHDRUGS OF ABUSE SCREEN [id number] 13:27:00 Test Item Value Reference Range Interpretation [...] PHENCU) SOURCE OF URINE: CLEAN CATCHBASIC METABOLIC [id number] 13:26:00 Test Item Value Reference Range Interpretation [...] code = CA) MG/DL 8.7-9.7 HEPATIC FUNCTION [id number] 13:26:00 Test Item Value Reference Range Interpretation Comments TOTAL PROTEIN (test code = PROT) G/DL 6.2-7.6 ALBUMIN (test code = ALB) 4.6 G/DL 3.5-5.0 N BILIRUBIN TOTAL (test code = BILT) MG/DL 0.2-1.3 BILIRUBIN DIRECT (test code = BILD) MG/DL 0.0-0.3 SGOT/AST (test code = AST) UNITS/L 15-37 SGPT/ALT (test code = ALT) UNITS/L <50 ALKALINE PHOSPHATASE (test code = UNITS/L 38-126 ALKP) [id number] 13:26:00 Test Item Value Reference Range Interpretation Comments TROPONIN-I (test code = TROPI) NG/ML 0.0-0.045 [id number] 13:26:00 Test Item Value Reference Range Interpretation Comments ACETAMINOPHEN (test code = ACET) MCG/ML 10-30 [id number] 13:26:00 Test Item Value Reference Range Interpretation Comments SALICYLATE (test code = ROBER) MG/DL <2.0 [id number] 13:26:00 Test Item Value Reference Range Interpretation Comments ALCOHOL (test code = ALC) MG/DL <10 URINALYSIS [id number] 13:26:00 Test Item Value Reference Range Interpretation [...] OF URINE: CLEAN CATCHDRUGS OF ABUSE SCREEN [id number] 13:26:00 Test Item Value Reference Range Interpretation [...] PHENCU) SOURCE OF URINE: CLEAN CATCHBASIC METABOLIC [id number] 13:25:00 Test Item Value Reference Range Interpretation [...] code = CA) MG/DL 8.7-9.7 HEPATIC FUNCTION [id number] 13:25:00 Test Item Value Reference Range Interpretation Comments TOTAL PROTEIN (test code = PROT) G/DL 6.2-7.6 ALBUMIN (test code = ALB) 4.6 G/DL 3.5-5.0 N BILIRUBIN TOTAL (test code = BILT) MG/DL 0.2-1.3 BILIRUBIN DIRECT (test code = BILD) MG/DL 0.0-0.3 SGOT/AST (test code = AST) UNITS/L 15-37 SGPT/ALT (test code = ALT) UNITS/L <50 ALKALINE PHOSPHATASE (test code = UNITS/L 38-126 ALKP) [id number] 13:25:00 Test Item Value Reference Range Interpretation Comments TROPONIN-I (test code = TROPI) NG/ML 0.0-0.045 [id number] 13:25:00 Test Item Value Reference Range Interpretation Comments ACETAMINOPHEN (test code = ACET) MCG/ML 10-30 [id number] 13:25:00 Test Item Value Reference Range Interpretation Comments SALICYLATE (test code = ROBER) MG/DL <2.0 [id number] 13:25:00 Test Item Value Reference Range Interpretation Comments ALCOHOL (test code = ALC) MG/DL <10 URINALYSIS [id number] 13:25:00 Test Item Value Reference Range Interpretation [...] OF URINE: CLEAN CATCHDRUGS OF ABUSE SCREEN [id number] 13:25:00 Test Item Value Reference Range Interpretation [...] = PHENCU) SOURCE OF URINE: CLEAN CATCHURINALYSIS [id number] 13:04:00 Test Item Value Reference Range Interpretation [...] OF URINE: CLEAN CATCHDRUGS OF ABUSE SCREEN [id number] 13:04:00 Test Item Value Reference Range Interpretation [...] NEGATIVE PHENCU) SOURCE OF URINE: CLEAN CATCHURINALYSIS [id number] 13:03:00 Test Item Value Reference Range Interpretation [...] code = UACULT) SOURCE OF URINE: CLEAN CATCHDRUGS OF ABUSE SCREEN [id number] 13:03:00 Test Item Value Reference Range Interpretation [...] = NEGATIVE PHENCU) SOURCE OF URINE: CLEAN CATCHCBC W/AUTO [id number] 13:02:00 Test Item Value Reference Range Interpretation [...]
[2022-01-01 09:19] LABS: Absolute Lymphocytes (CBC) 1.1 K/uL (0.7-4.9); Hematocrit 35.4 % (39.6-49.0); Lymphocytes % 27.4 % (15.3-44.8); MCV 90.2 fL (80-100); MPV 7.6 fL (7.6-11.3); RBC Red Blood Cell Count 3.92 M/uL (4.33-5.43)
[2022-01-01 09:27] LABS: Protime INR 1.11
[2022-01-01 09:34] LABS: Potassium 3.5 mmol/L (3.5-5.1)
[2022-01-01 09:36] LABS: Urine Blood 1+ (Negative); Urine Glucose Negative (Negative); Urine Protein Trace (Negative); Urine Specific Gravity >=1.030 (1.005-1.030); Urine pH 5.5 (5.0-7.0)
--- NOTE | 2022-01-01 09:43 | RAD REPORT ---
EXAM DESCRIPTION: CT - Head Brain Wo Cont - 01/01/2022 9:20 am CLINICAL HISTORY: Altered mental status, Headache COMPARISON: Head Brain Wo Cont dated 03/29/2020; Head C Spine Cap W Con dated 06/22/2021 TECHNIQUE: Axial 5 mm thick images of the head were obtained without IV contrast. All CT scans are performed using dose optimization technique as appropriate and may include automated exposure control or mA/KV adjustment according to patient size. FINDINGS: No intracranial hemorrhage, mass, edema or shift of mid-line structures. No acute cortical based infarction. No cortical edema or sulcal effacement identified. Patient has a significant bifro ntal and bitemporal atrophy pattern. Ventriculomegaly is present and appears be in proportion to the amount of volume loss. These findings are very advanced for age and is consistent with a frontotempor al dementia/Picks disease. Intracranial findings are not clearly different from June 2021. Mastoid air cells and visualized portions of the paranasal sinuses are clear. No acute bony findings. IMPRESSION: No hemorrhage, mass or acute intracranial finding identifiable. Patient shows a very advanced for age frontotemporal dementia volume loss pattern that is not clearly different from June 2021.
--- NOTE | 2022-01-01 10:09 | RAD REPORT ---
EXAM DESCRIPTION: RAD - Chest Single View - 01/01/2022 9:52 am CLINICAL HISTORY: altered mental status COMPARISON: Portable 11/07/2021 TECHNIQUE: AP portable chest image was obtained 01/01/2022 9:52 am . FINDINGS: No pneumonia or focal lung parenchymal process identifiable. No suspicious change to the i nterstitial pattern. Heart and vasculature are normal. No measurable pleural effusion and no pneumothorax. No acute bony abnormality seen. No acute aortic findings suspected. IMPRESSION: No acute cardiopulmonary process.
--- NOTE | 2022-01-01 10:25 | EDPHYS ---
Physician Documentation [facility] Name: Ron Murray Age: 66 yrs Sex: Male : 1955 Arrival Date: 01/01/2022 Time: 09:02 Bed 23 Private MD: ED Physician Reji Serra HPI: 01/01 09:23 This 66 yrs old Black Male presents to ER via EMS with complaints of altered mental ms3 status. 09:23 The patient presents with decreased mental status, decreased responsiveness. Onset: The ms3 symptoms/episode began/occurred 12 hour(s) ago. Possible causes: unknown. Associated signs and symptoms: The patient has no apparent associated signs or symptoms. Current symptoms: In the emergency department the patient's symptoms are unchanged from the initial presentation. Patient's baseline: Per EMS patient will walk the hallways and read pictures on the wall. Historical: - Allergies: 09:06 No Known Allergies; tw2 - Home Meds: 09:06 amlodipine 5 mg oral tab 1 tab 2 times a day [Active]; Aricept 23 mg oral tab 1 tab at tw2 bedtime [Active]; benztropine 1 mg oral tab 1 tab at bedtime [Active]; Buspirone 20 mg Oral 1 tab [Active]; Coreg 3.125 mg oral tab 1 tab 2 times per day [Active]; docusate sodium 100 mg oral tab 1 tab 2 times per day [Active]; Lipitor 10 mg oral tab 1 tab once daily [Active]; lisinopril 40 mg oral tab 1 tab once daily [Active]; meloxicam 15 mg oral tab 1 tab once daily [Active]; Namenda 10 mg oral tab 1 tab 2 times per day [Active]; polyethylene glycol 3350 Oral [Active]; Risperdal 1 mg oral tab 1 tab once daily [Active]; Risperdal 2 mg Oral tab 1 tab at bedtime [Active]; trazodone 50 mg oral tab 1 tab at bedtime [Active]; - PMHx: 09:06 Alzheimers; cerebral ischemia; Dementia; Hyperlipidemia; Hypertension; osteoarthritis; tw2 Dysphagia; schizoaffective; muscle weakness, generalized; - Immunization history:: Adult Immunizations. - Social history:: Smoking status: . ROS: : Unable to obtain ROS due to altered mental status, baseline dementia. ms3 Exam: 09:08 ECG was reviewed by the Attending Physician. ms3 09:23 Constitutional: This is a well developed, well nourished patient who is awake, and in ms3 no acute distress. Head/Face: Normocephalic, atraumatic. Neck: Trachea midline, no cervical lymphadenopathy. Chest/axilla: Normal chest wall appearance and motion. Nontender with no deformity. Cardiovascular: Regular rate and rhythm with a normal S1 and S2. No gallops, murmurs, or rubs. Normal PMI, no JVD. No pulse deficits. Respiratory: Lungs have equal breath sounds bilaterally, clear to auscultation and percussion. No rales, rhonchi or wheezes noted. No increased work of breathing, no retractions or nasal flaring. Abdomen/GI: Soft, non-tender, with normal bowel sounds. No distension or tympany. No guarding or rebound. No evidence of tenderness throughout. Skin: Warm, dry with normal turgor. Normal color with no rashes, no lesions, and no evidence of cellulitis. 09:23 Neuro: Mentation: slow to respond, Patient answers "no" to all questions. Vital Signs: 08:57 BP 141 / 82; Pulse 57; Resp 15; Temp 97.8(TE); Pulse Ox 95% on R/A; Weight 68.04 kg; tw2 09:45 BP 138 / 75; Pulse 55; Resp 13; Pulse Ox 99% on R/A; tw2 10:23 BP 145 / 71; Pulse 67; Resp 13; Pulse Ox 100% on R/A; tw2 11:19 BP 141 / 81; Pulse 63; Resp 15; Pulse Ox 100% on R/A; tw2 12:23 BP 149 / 90; Pulse 64; Resp 15; Pulse Ox 100% on R/A; tw2 MDM: 09:03 Patient medically screened. ms3 10:24 Differential Diagnosis: CVA, electrolyte abnormality, hypoglycemia, intracranial bleed. ms3 Data reviewed: vital signs, nurses notes, lab test result(s), EKG, radiologic studies, and as a result, I will discharge patient. Data interpreted: quality assurance monitor chassis: rate is 62 beats/min, rhythm is normal sinus rhythm, regular, with no ectopy, Interpretation: normal rate, normal rhythm. Test interpretation: by ED physician or midlevel provider: ECG. Counseling: I had a detailed discussion with the patient and/or guardian regarding: the historical points, exam findings, and any diagnostic results supporting the discharge/admit diagnosis, lab results, radiology results, the need for outpatient follow up, to return to the emergency department if symptoms worsen or persist or if there are any questions or concerns that arise at home. Special discussion: I discussed with the patient/guardian in detail that at this point there is no indication for admission to the hospital. It is understood, however, that if the symptoms persist or worsen the patient needs to return immediately for re-evaluation. ED course: Discussed patient with his at bedside. Patient's states patient is at baseline and she is comfortable with discharge back to the nursing facility. Patient remained in stable condition while in the ED.. 01/01 09:05 Order name: Basic Metabolic Panel; Complete Time: 09:39 ms3 01/01 09:05 Order name: CBC with Diff; Complete Time: 09:39 ms3 01/01 09:05 Order name: Protime (+inr); Complete Time: 09:39 ms3 01/01 09:05 Order name: Ptt, Activated; Complete Time: 09:39 ms3 01/01 09:05 Order name: CT Head Brain wo Cont; Complete Time: 10:19 ms3 01/01 09:36 Order name: Urine Dipstick-Ancillary; Complete Time: 09:39 EDMS 01/01 09:05 Order name: EKG; Complete Time: 09:06 ms3 01/01 09:05 Order name: Cardiac monitoring; Complete Time: 09:12 ms3 01/01 09:05 Order name: EKG - Nurse/Tech; Complete Time: 09:12 ms3 01/01 09:05 Order name: IV Saline Lock; Complete Time: 09:12 ms3 01/01 09:05 Order name: Labs collected and sent; Complete Time: 09:12 ms3 01/01 09:05 Order name: CXR XRAY; Complete Time: 10:19 ms3 01/01 11:45 Order name: Diet Regular; Complete Time: 11:46 tw2 01/01 09:05 Order name: NPO; Complete Time: 09:12 ms3 01/01 09:05 Order name: O2 Per Protocol; Complete Time: 09:12 ms3 01/01 09:05 Order name: O2 Sat Monitoring; Complete Time: 09:12 ms3 01/01 09:05 Order name: Stroke Swallow Screen; Complete Time: 09:58 ms3 01/01 09:42 Order name: Straight Cath - Urine; Complete Time: 09:43 ap3 EC:08 Rate is 54 beats/min. Rhythm is regular. QRS Rufus is Normal. CT interval is normal. QRS ms3 interval is normal. Clinical impression: Sinus bradycardia. Interpreted by me. Reviewed by me. Administered Medications: No medications were administered Disposition: 22:28 Chart complete. ms3 Disposition Summary: 01/01/22 10:24 Discharge Ordered Location: Halfway ms3 Condition: Stable ms3 Diagnosis - Frontotemporal dementia ms3 - History of CVA ms3 - Essential (primary) hypertension ms3 Discharge Instructions: - Discharge Summary Sheet ms3 - Frontotemporal Dementia ms3 Forms: - Medication Reconciliation Form ms3 - Thank You Letter ms3 - Antibiotic Education ms3 - Prescription Opioid Use ms3 Signatures: Dispatcher [employer] Lois Seaman RN RN tw2 Marlene Sandoval RN RN ap3 Reji Serra DO DO ms3 Corrections: (The following items were deleted from the chart) 09:19 09:05 Accucheck ordered. ms3 tw2
--- NOTE | 2022-01-01 10:25 | ER ---
Nurse's Notes [facility] Name: Ron Murray Age: 66 yrs Sex: Male : 1955 Arrival Date: 01/01/2022 Time: 09:02 Bed 23 Private MD: Diagnosis: Frontotemporal dementia;History of CVA;Essential (primary) hypertension Presentation: 01/01 08:57 Chief complaint: EMS states: pt from [place]. normally up pacing around. a\T\o 0. staff tw2 reports pt c/o SUERO last night. staff reports more altered today. Pt answers no to everything. Hx: CVA. vs stable. Coronavirus screen: At this time, the client does not indicate any symptoms associated with coronavirus-19. Ebola Screen: Patient denies travel to an Ebola-affected area in the 21 days before illness onset. Initial Sepsis Screen: Does the patient meet any 2 criteria? No. Patient's initial sepsis screen is negative. Does the patient have a suspected source of infection? No. Patient's initial sepsis screen is negative. Risk Assessment: Do you want to hurt yourself or someone else? Patient reports no desire to harm self or others. Note provider at bedside at this time. Onset of symptoms was January 01, 2022. 08:57 Method Of Arrival: EMS: [facility] tw2 08:57 Acuity: DELILAH 3 tw2 Triage Assessment: 08:57 General: Appears in no apparent distress. Behavior is calm. Pain: Denies pain. EENT: No tw2 signs and/or symptoms were reported regarding the EENT system. Neuro: Level of Consciousness is awake, alert, obeys commands, Oriented to person, pts baseline. Cardiovascular: Patient's skin is warm and dry. Respiratory: Airway is patent Respiratory effort is even, unlabored, Respiratory pattern is regular, symmetrical. GI: No signs and/or symptoms were reported involving the gastrointestinal system. : No signs and/or symptoms were reported regarding the genitourinary system. Musculoskeletal: Circulation, motion, and sensation intact. Historical: - Allergies: 09:06 No Known Allergies; tw2 - Home Meds: 09: amlodipine 5 mg oral tab 1 tab 2 times a day [Active]; Aricept 23 mg oral tab 1 tab at tw2 bedtime [Active]; benztropine 1 mg oral tab 1 tab at bedtime [Active]; Buspirone 20 mg Oral 1 tab [Active]; Coreg 3.125 mg oral tab 1 tab 2 times per day [Active]; docusate sodium 100 mg oral tab 1 tab 2 times per day [Active]; Lipitor 10 mg oral tab 1 tab once daily [Active]; lisinopril 40 mg oral tab 1 tab once daily [Active]; meloxicam 15 mg oral tab 1 tab once daily [Active]; Namenda 10 mg oral tab 1 tab 2 times per day [Active]; polyethylene glycol 3350 Oral [Active]; Risperdal 1 mg oral tab 1 tab once daily [Active]; Risperdal 2 mg Oral tab 1 tab at bedtime [Active]; trazodone 50 mg oral tab 1 tab at bedtime [Active]; - PMHx: 09:06 Alzheimers; cerebral ischemia; Dementia; Hyperlipidemia; Hypertension; osteoarthritis; tw2 Dysphagia; schizoaffective; muscle weakness, generalized; - Immunization history:: Adult Immunizations. - Social history:: Smoking status: . Screenin:17 Abuse screen: Denies threats or abuse. Nutritional screening: No deficits noted. tw2 Tuberculosis screening: No symptoms or risk factors identified. Fall Risk Secondary diagnosis (15 points) Alzheimer's, dementia, impaired mobility, CVA. 09:58 Patient has been NPO before screening. The patient is alert, able to follow commands. tw2 The patient does not exhibit slurred or garbled speech at baseline The patient is not exhibiting difficulty speaking. The patient does not exhibit difficulty understanding words. The patient is able to swallow own secretions with no drooling or need for suction. Patient tolerated one teaspoon of water. No drooling, immediate coughing, gurgling, or clearing of the throat was noted. The patient tolerated 90mL of water. No drooling, immediate coughing, gurgling, or clearing of the throat was noted. The patient passed the bedside swallow screening. Oral medications may be given as ordered. Contact Physician for further diet orders. Provider notified of bedside swallow screening results: Reji Serra DO. Assessment: 09:17 Reassessment: see triage assessment. tw2 10:23 Reassessment: Patient appears in no apparent distress at this time. Patient and/or tw2 family updated on plan of care and expected duration. Pain level reassessed. 11:19 Reassessment: Patient appears in no apparent distress at this time. Patient and/or tw2 family updated on plan of care and expected duration. Pain level reassessed. 12:23 Reassessment: Patient appears in no apparent distress at this time. Patient and/or tw2 family updated on plan of care and expected duration. Pain level reassessed. Vital Signs: 08:57 BP 141 / 82; Pulse 57; Resp 15; Temp 97.8(TE); Pulse Ox 95% on R/A; Weight 68.04 kg; tw2 09:45 BP 138 / 75; Pulse 55; Resp 13; Pulse Ox 99% on R/A; tw2 10:23 BP 145 / 71; Pulse 67; Resp 13; Pulse Ox 100% on R/A; tw2 11:19 BP 141 / 81; Pulse 63; Resp 15; Pulse Ox 100% on R/A; tw2 12:23 BP 149 / 90; Pulse 64; Resp 15; Pulse Ox 100% on R/A; tw2 ED Course: 08:57 Bed in low position. Call light in reach. Side rails up X2. non profit financial controller on. Pulse tw2 ox on. NIBP on. Warm blanket given. 09:02 Patient arrived in ED. em1 09:02 Reji Serra DO is Attending Physician. ms3 09:03 Lois Dietrich, ARLENE is Primary Nurse. tw2 09:06 Triage completed. tw2 09:17 Arm band placed on. tw2 09:18 Maintain EMS IV. Dressing intact. Good blood return noted. Site clean \T\ dry. Gauge \T\ tw 2 site: 20 g LEFT ac. 09:22 CT Head Brain wo Cont In Process Unspecified. EDMS 09:43 Straight cath inserted, using sterile technique, 16 Fr. Specimen obtained. Returned ap3 janusz urine. Patient tolerated well. 09:54 CXR XRAY In Process Unspecified. EDMS 10:30 Awaiting transportation, Awaiting: spoke with ALEX Mckeon at [facility] to arrange tw2 transportation. 10:30 Report given to ALEX Mckeon at [facility] for discharge. Linda will arrange tw2 transportation to facility and call back to let us know when. 12:22 per Manuel, Roll Table Operator, he got a hold of [employer] for w/c van transfer back to [address] and they are on their way. pts spouse signed discharge paperwork. 12:55 No provider procedures requiring assistance completed. IV discontinued, intact, tw2 bleeding controlled, No redness/swelling at site. Pressure dressing applied. Administered Medications: No medications were administered Medication: 09:18 VIS not applicable for this client. tw2 Outcome: 10:24 Discharge ordered by . ms3 12:55 Patient left the ED. tw2 12:55 Discharged to shelter. w/family tw2 12:55 Condition: stable 12:55 Discharge instructions given to patient, family, Instructed on discharge instructions, follow up and referral plans. Demonstrated understanding of instructions, follow-up care. Signatures: Dispatcher [employer] Manuel Downs em1 Lois Dietrich, RN RN tw2 Marlene Sandoval RN RN ap3 Reji Serra, DO ms3
[2022-01-01 13:08] VITALS: O2SAT 100
[2022-01-01 13:12] VITALS: BP 149/90
--- NOTE | 2022-01-03 15:25 | EKG ---
Test Date: 2022-01-01 Test Time: 09:08:05 Spindle Plumber: ALP MEASUREMENT RESULTS: Intervals: Rate: 54 NH: 202 QRSD: 110 QT: 390 QTc: 369 [place]: P: 65 NH: 202 QRS: 2 T: 78 INTERPRETIVE STATEMENTS: Sinus bradycardia Nonspecific T wave abnormality Abnormal ECG Compared to ECG 06/22/2021 10:21:10 T-wave abnormality now present Sinus tachycardia no longer present Left-axis deviation no longer present Myocardial infarct finding no longer present Electronically Signed On 01-03-22 15:22:58 CDT by Anant Salinas
== END 2022-01-01 12:55 ==
LOC: ER 08:59
DX: G31.09 Other frontotemporal neurocognitive disorder (principal); F02.80 Dementia in other diseases classified elsewhere, unspecified severity, without behavioral disturbance, psychotic disturbance, mood disturbance, and anxiety; I10 Essential (primary) hypertension; Z86.73 Personal history of transient ischemic attack (TIA), and cerebral infarction without residual deficits; E78.5 Hyperlipidemia, unspecified; G30.9 Alzheimer's disease, unspecified; F25.9 Schizoaffective disorder, unspecified
CPT/HCPCS: 36415; 51702; 70450; 71045; 80048; 81003; 85025; 85610; 85730; 93005; 99284

== ENCOUNTER 2022-12-26 09:32 | Emergency (ER) | payer OTHER ==
--- OUTSIDE RECORDS SUMMARY | 2022-12-26 09:41 | XMS REPORT | Continuity of Care Document ---
:1955 Author Organization [facility] t Address [address] [facility] [address] [place] [address] Care Team Providers Name Role Phone DR [...] Clinician No Known DA Active U 2019-05 [facility] Allergie 05-18 00:00: [address] No Known DA Active U 2019-05 [facility] Allergie 05-18 00:00: [address] No Known DA Active [facility] Medications This patient has no known medications. [...] Department ID 2020-04-03 Inpatient Madhuri JOHN OM HALEY [id number] Jeffrey 13:14:00 [facility] 2020-03-18 Inpatient HCAWU TAWANNA [id number] [facility] 11:43:[address] [facility] 2021-06-04 2021-06-04 Outpatient [facility] [address] 12:18:00 12:18:00 _ANN [address] da [facility] [place] h Program Results Test Description Test Time [...] the FDA and the [employer] of the [employer] (CAP) are more stringent than those required for this test. Therefore, the result should be interpreted with caution and close attention to other clinical and epidemiological data GLUCOMETER GLUCOSE- LAB USE [id number] 07:28:00 Test Item Value Reference Range Interpretation Comments GLUCOMETER (test code 102 mg/dL 70-100 H CLEANE D METERMeter ID: = GMG) [id number] tor: 39[address] [facility] B12 [id number] 18:26:00 Test Item Value Reference Range Interpretation Comments VIT B12 (test code = A60) 459.0 pg/mL 180.0-914.0 [id number] 18:26:00 Test Item Value Reference Range Interpretation Comments FOLATE (test code = A75) 15.0 ng/mL 3.1-17.5 LIPID [id number] 18:26:00 Test Item Value Reference Range Interpretation [...] (test code = A57) 0.610 uIU/mL 0.358-3.740 [id number] 18:18:00 Test Item Value Reference Range Interpretation Comments MAGNESIUM (test code = 48A) 2.2 mg/dL 1.8-2.4 [id number] 18:18:00 Test Item Value Reference Range Interpretation Comments PREALBUMIN (test code = 08E) 34 mg/dL 18-38 [id number] 18:05:00 Test Item Value Reference Range Interpretation Comments Hb A1C % (test code 4.7 % 3.8-6.4 = HBA) A1C % (test code = HbA1c (% ) A1C) Reference Range Normal <5.7 Prediabetes 5.7-6.4 Diabetic >=6.5 [id number] 11:51:00 Test Item Value Reference Range Interpretation Comments ACETAMINPH (test code = 94M) <2.0 ug/mL 10.0-30.0 L [id number] 11:49:00 Test Item Value Reference Range Interpretation Comments FERRITIN (test code = A19) 521.4 ng/mL 26.0-388.0 H LDH-LACTIC [id number] 11:49:00 Test Item Value Reference Range Interpretation Comments LDH (test code = 33A) 241 IU/L 87-241 C-REACTIVE PROTEIN [id number] 11:41:00 Test Item Value Reference Range Interpretation Comments CRP QUANT (test code <2.9 mg/L 0.0-2.9 = CRPQ) Method Change (test Please note the code = METHOD) change in Method and the reference range COMPREHENSIVE METABOLIC [id number] 11:41:00 Test Item Value Reference Range Interpretation [...] (test code = 31A) 36 IU/L <=78 [id number] 11:41:00 Test Item Value Reference Range Interpretation Comments SALICYLATE (test code = 94B) <1.7 mg/dL 2.8-20.0 L ALCOHOL BLOOD (ETOH)2020-04-03 11:38:00 Test Item Value Reference Range Interpretation Comments ETOH (test code = HALC) ETHANOL The result is to be used only for medical purposes ALCOHOL (test code = <10 mg/dL <=10 56A) CARDIAC [id number] 11:37:00 Test Item Value Reference Range Interpretation [...] the FDA and the College of the [employer] (CAP) are more stringent than those required for this test. Therefore, the result should be interpreted with caution and close attention to other clinical and epidemiological data AMMONIA [id number] 11:32:00 Test Item Value Reference Range Interpretation Comments AMMONIA (test code = 54A) 18 umol/L 11-32 PRO TIME AND [id number] 11:26:00 Test Item Value Reference Range Interpretation [...] or LMW Heparin. Order Code is ANTI-XA [id number] 11:26:00 Test Item Value Reference Range Interpretation [...] = RBCMOR) NORMAL - CT HEAD/BRAIN W/O [id number] 14:32:00 [facility] : 1955 Sex: M Patient Name: JENNIFER BARTHOLOMEW Unit No: [id number] EXAMS: CPT CODE: [id number] CT HEAD/BRAIN W/O CONT 18964UI HEAD WITHOUT CONTRAST CLINICAL HISTORY: Psych clearance, psych evaluation COMPARISON: None available. TECHNIQUE: 5 mm axial images of the brain were obtained without contrast. Coronal and sagittalreformats were obtained. One or more of the following dose reduction techniques were used: Automatedexposure control, adjustment of the mA and/or kV according to patient size, and/or utilization of iterative reconstruction technique. FINDINGS: Moderate cerebral volume loss is noted, predominantly affecting the frontal and temporal lobes. There is compensatory widening of the sulci and ventricles. Mod erate periventricular and subcortical white matter low-attenuation changes are nonspecific but may reflect chronic microvascular ischemic disease. No mass effect or midline shift is seen. There is no acute intracranial hemorrhage. The cranial vault and skull base are intact. The paranasal sinuses andmastoid air cells are pneumatized and well-aerated. IMPRESSION: 1. Moderate cerebral atrophy, predominantly affecting the frontotemporal lobes. 2. No acute intracranial hemorrhage. 3. Chronic microvascular ischemic disease. Location: [id number] Reported and signed by: Tom Babin M.D. CC: Dustin Womack MD Technologist: Venkatesh West, RT(R); Vinnie CTDI: DLP: Trnscrpt: 03/18/2020 (1432) [email or web address] [facility] Claudio NAME: JENNIFER BARTHOLOMEW [id number] PHYS: SUSANNAHOneilDavina Saunders [place] [address] : 1955 AGE: 64 SEX: M LOC: [facility] PHONE #: [phone] EXAM DATE: 03/18/2020 STATUS: REG ER FAX #: [phone] RAD #: D/C DT PAGE 1 Signed Report Patient Name: JENNIFER BARTHOLOMEW Unit No: [id number] EXAMS: CPT CODE: [id number] CT HEAD/BRAIN W/O CONT 72100 (Continued) Orig Print D/T: S: 03/18/2020 (1435) [facility] NAME: JENNIFER BARTHOLOMEW [id number] PHYS: SUSANNAHOneilDavina Saunders [place] [address] : 1955 AGE: 64 SEX: M LOC: [facility] PHONE #: [phone] EXAM DATE: 03/18/2020 STATUS: REG ER FAX #: [phone] RAD #: D/C DT PAGE 2 Signed ReportCOVID 19 Asymptomatic IH [id number] 13:50:00 Test Item Value Reference Range Interpretation [...] virus (antigen) in the sample." BASIC METABOLIC [id number] 13:40:00 Test Item Value Reference Range Interpretation [...] 9.7 MG/DL 8.4-10.2 N CA) HEPATIC FUNCTION [id number] 13:40:00 Test Item Value Reference Range Interpretation [...] UNITS/L 38-126 N (test code = ALKP) [id number] 13:40:00 Test Item Value Reference Range Interpretation Comments TROPONIN-I (test code = TROPI) 0.013 NG/ML 0.012-0.033 N [id number] 13:40:00 Test Item Value Reference Range Interpretation Comments ACETAMINOPHEN (test code = < 10.0 MCG/ML 10-30 L ACET) [id number] 13:40:00 Test Item Value Reference Range Interpretation Comments SALICYLATE (test code = ROBER) < 1.0 MG/DL <2.0 [id number] 13:40:00 Test Item Value Reference Range Interpretation Comments ALCOHOL (test code = ALC) < 10.0 MG/DL <10 BASIC METABOLIC [id number] 13:30:00 Test Item Value Reference Range Interpretation [...] 9.7 MG/DL 8.4-10.2 N CA) HEPATIC FUNCTION [id number] 13:30:00 Test Item Value Reference Range Interpretation [...] UNITS/L 38-126 N (test code = ALKP) [id number] 13:30:00 Test Item Value Reference Range Interpretation Comments TROPONIN-I (test code = TROPI) NG/ML 0.0-0.045 [id number] 13:30:00 Test Item Value Reference Range Interpretation Comments ACETAMINOPHEN (test code = < 10.0 MCG/ML 10-30 L ACET) [id number] 13:30:00 Test Item Value Reference Range Interpretation Comments SALICYLATE (test code = ROBER) < 1.0 MG/DL <2.0 [id number] 13:30:00 Test Item Value Reference Range Interpretation Comments ALCOHOL (test code = ALC) < 10.0 MG/DL <10 URINALYSIS [id number] 13:29:00 Test Item Value Reference Range Interpretation [...] OF URINE: CLEAN CATCHDRUGS OF ABUSE SCREEN [id number] 13:29:00 Test Item Value Reference Range Interpretation [...] ng/mL SOURCE OF URINE: CLEAN CATCHBASIC METABOLIC [id number] 13:29:00 Test Item Value Reference Range Interpretation [...] 9.7 MG/DL 8.4-10.2 N CA) HEPATIC FUNCTION [id number] 13:29:00 Test Item Value Reference Range Interpretation [...] UNITS/L 38-126 N (test code = ALKP) [id number] 13:29:00 Test Item Value Reference Range Interpretation Comments TROPONIN-I (test code = TROPI) NG/ML 0.0-0.045 [id number] 13:29:00 Test Item Value Reference Range Interpretation Comments ACETAMINOPHEN (test code = < 10.0 MCG/ML 10-30 L ACET) [id number] 13:29:00 Test Item Value Reference Range Interpretation Comments SALICYLATE (test code = ROBER) < 1.0 MG/DL <2.0 [id number] 13:29:00 Test Item Value Reference Range Interpretation Comments ALCOHOL (test code = ALC) MG/DL <10 BASIC METABOLIC [id number] 13:28:00 Test Item Value Reference Range Interpretation [...] code = MG/DL 8.7-9.7 CA) HEPATIC FUNCTION [id number] 13:28:00 Test Item Value Reference Range Interpretation [...] Concentration Concentration Concentration== ======== ======== ======== ====TBil 7mg/d l TBil/ 1.2mg/dl +0.23m g.dl +0.20mg/dlBuBc 3.5mg/dl Bu/0.8mg/dl +0. 25mg/dl +0.24mg/dlBuBc 7 mg/dl Bu/14.2mg/dl +0 .38mg/dl +0.25mg/dlBuBc 5mg/dl Bc/0mg/dl +0.25 mg/dl +0.15mg/dlBuBc 3.5mg/dl Bc/2.8mg/dl +0. 25mg/dl +0.23mg/dl SGOT/AST (test code = UNITS/L 15-37 AST) SGPT/ALT (test code = UNITS/L <50 ALT) ALKALINE PHOSPHATASE UNITS/L 38-126 (test code = ALKP) [id number] 13:28:00 Test Item Value Reference Range Interpretation Comments TROPONIN-I (test code = TROPI) NG/ML 0.0-0.045 [id number] 13:28:00 Test Item Value Reference Range Interpretation Comments ACETAMINOPHEN (test code = ACET) MCG/ML 10-30 [id number] 13:28:00 Test Item Value Reference Range Interpretation Comments SALICYLATE (test code = ROBER) MG/DL <2.0 [id number] 13:28:00 Test Item Value Reference Range Interpretation Comments ALCOHOL (test code = ALC) MG/DL <10 URINALYSIS [id number] 13:28:00 Test Item Value Reference Range Interpretation [...] OF URINE: CLEAN CATCHDRUGS OF ABUSE SCREEN [id number] 13:28:00 Test Item Value Reference Range Interpretation [...] = PHENCU) SOURCE OF URINE: CLEAN CATCHURINALYSIS [id number] 13:27:00 Test Item Value Reference Range Interpretation [...] OF URINE: CLEAN CATCHDRUGS OF ABUSE SCREEN [id number] 13:27:00 Test Item Value Reference Range Interpretation [...] code = PHENCU) SOURCE OF URINE: CLEAN [id number] 13:26:00 Test Item Value Reference Range Interpretation Comments SALICYLATE (test code = ROBER) MG/DL <2.0 [id number] 13:26:00 Test Item Value Reference Range Interpretation Comments ALCOHOL (test code = ALC) MG/DL <10 URINALYSIS [id number] 13:26:00 Test Item Value Reference Range Interpretation [...] OF URINE: CLEAN CATCHDRUGS OF ABUSE SCREEN [id number] 13:26:00 Test Item Value Reference Range Interpretation [...] PHENCU) SOURCE OF URINE: CLEAN CATCHBASIC METABOLIC [id number] 13:26:00 Test Item Value Reference Range Interpretation [...] code = CA) MG/DL 8.7-9.7 HEPATIC FUNCTION [id number] 13:26:00 Test Item Value Reference Range Interpretation Comments TOTAL PROTEIN (test code = PROT) G/DL 6.2-7.6 ALBUMIN (test code = ALB) 4.6 G/DL 3.5-5.0 N BILIRUBIN TOTAL (test code = BILT) MG/DL 0.2-1.3 BILIRUBIN DIRECT (test code = BILD) MG/DL 0.0-0.3 SGOT/AST (test code = AST) UNITS/L 15-37 SGPT/ALT (test code = ALT) UNITS/L <50 ALKALINE PHOSPHATASE (test code = UNITS/L 38-126 ALKP) [id number] 13:26:00 Test Item Value Reference Range Interpretation Comments TROPONIN-I (test code = TROPI) NG/ML 0.0-0.045 [id number] 13:26:00 Test Item Value Reference Range Interpretation Comments ACETAMINOPHEN (test code = ACET) MCG/ML 10-30 BASIC METABOLIC [id number] 13:25:00 Test Item Value Reference Range Interpretation [...] code = CA) MG/DL 8.7-9.7 HEPATIC FUNCTION [id number] 13:25:00 Test Item Value Reference Range Interpretation Comments TOTAL PROTEIN (test code = PROT) G/DL 6.2-7.6 ALBUMIN (test code = ALB) 4.6 G/DL 3.5-5.0 N BILIRUBIN TOTAL (test code = BILT) MG/DL 0.2-1.3 BILIRUBIN DIRECT (test code = BILD) MG/DL 0.0-0.3 SGOT/AST (test code = AST) UNITS/L 15-37 SGPT/ALT (test code = ALT) UNITS/L <50 ALKALINE PHOSPHATASE (test code = UNITS/L 38-126 ALKP) [id number] 13:25:00 Test Item Value Reference Range Interpretation Comments TROPONIN-I (test code = TROPI) NG/ML 0.0-0.045 [id number] 13:25:00 Test Item Value Reference Range Interpretation Comments ACETAMINOPHEN (test code = ACET) MCG/ML 10-30 [id number] 13:25:00 Test Item Value Reference Range Interpretation Comments SALICYLATE (test code = ROBER) MG/DL <2.0 [id number] 13:25:00 Test Item Value Reference Range Interpretation Comments ALCOHOL (test code = ALC) MG/DL <10 URINALYSIS [id number] 13:25:00 Test Item Value Reference Range Interpretation [...] OF URINE: CLEAN CATCHDRUGS OF ABUSE SCREEN [id number] 13:25:00 Test Item Value Reference Range Interpretation [...] = PHENCU) SOURCE OF URINE: CLEAN CATCHURINALYSIS [id number] 13:04:00 Test Item Value Reference Range Interpretation [...] OF URINE: CLEAN CATCHDRUGS OF ABUSE SCREEN [id number] 13:04:00 Test Item Value Reference Range Interpretation [...] NEGATIVE PHENCU) SOURCE OF URINE: CLEAN CATCHURINALYSIS [id number] 13:03:00 Test Item Value Reference Range Interpretation [...] OF URINE: CLEAN CATCHDRUGS OF ABUSE SCREEN [id number] 13:03:00 Test Item Value Reference Range Interpretation [...] PHENCU) SOURCE OF URINE: CLEAN CATCHCBC W/AUTO [id number] 13:02:00 Test Item Value Reference Range Interpretation [...] code = 0.00 K/mm3 0.0-0.1 N NRBC#) Notes Date/Time Note Provider Source 2020-03-20 08:16:00-00:00 [facility] ([facility]) Clinical Note REPORT#:[id number] REPORT STATUS: Signed DATE:03/20/20 TIME: 08 PATIENT: JENNIFER BARTHOLOMEW UNIT #: [id number] ROOM/BED: : 57 AGE: 64 SEX: M ATTEND: Mariela Womack MD ADM DT: AUTHOR: Alexa De Leon MD * ALL edits or amendments must be made on the el ectronic/computer document * Clinical Note Note: [id number] psych note dictated Electronically Signed by Alexa De Leon MD on 03/29 at 0817 RPT #:[id number] END OF REPORT
[2022-12-26 10:11] LABS: Absolute Lymphocytes (CBC) 0.9 K/uL (0.7-4.9); Hematocrit 37.7 % (39.6-49.0); Lymphocytes % 19.8 % (15.3-44.8); MCV 91.7 fL (80-100); MPV 7.4 fL (7.6-11.3); Platelets 209 thou/uL (152-406); RBC Red Blood Cell Count 4.12 M/uL (4.33-5.43)
[2022-12-26 10:31] LABS: Albumin 3.8 g/dL (3.4-5.0); Bilirubin Direct 0.1 mg/dL (0-0.2); Bilirubin Indirect, Calculated 0.2 mg/dL (0.2-0.8); Bilirubin Total 0.3 mg/dL (0.2-1.0); Potassium 3.7 mEq/L (3.5-5.1); Protein, Total 7.7 g/dL (6.4-8.2); Troponin High Sensitivity 8.2 pg/mL (<58.9)
[2022-12-26] MEDS ORDERED: DIPHENHYDRAMINE 50 MG/ML VIAL ONE (10:57)
--- NOTE | 2022-12-26 11:02 | RAD REPORT ---
EXAM DESCRIPTION: Pham Single View12/26/2022 10:52 am CLINICAL HISTORY: edema COMPARISON: 01/01/2022 and 11/07/2021 TECHNIQUE: Portable AP view of the chest. FINDINGS: Central interstitial prominence. Patchy left basilar airspace opacity. Findings are new si nce the prior exam. No pneumothorax or effusion. The cardiomediastinal contours are unremarkable. IMPRESSION: Patchy left basilar airspace opacity with central interstitial prominence, concerning fo r pneumonia on a background of central venous congestion/CHF.
--- NOTE | 2022-12-26 11:10 | ER ---
Nurse's Notes [facility] Name: Ron Murray Age: 67 yrs Sex: Male : 1955 Arrival Date: 12/26/2022 Time: 09:32 Bed 7 Private MD: Diagnosis: Unspecified combined systolic (congestive) and diastolic (congestive) heart failure;Edema, unspecified Presentation: 12/26 09:45 Chief complaint: EMS states: skilled nursing called in saying the patient was having left ap3 eye lid, and left hand swelling. Coronavirus screen: At this time, the client does not indicate any symptoms associated with coronavirus-19. Ebola Screen: No symptoms or risks identified at this time. Initial Sepsis Screen: Does the patient meet any 2 criteria? No. Patient's initial sepsis screen is negative. Does the patient have a suspected source of infection? No. Patient's initial sepsis screen is negative. Risk Assessment: Do you want to hurt yourself or someone else? Patient reports no desire to harm self or others. Onset of symptoms is unknown. 09:45 Method Of Arrival: EMS: [facility] ap3 09:45 Acuity: DELILAH 3 ap3 Triage Assessment: 09:47 General: Appears in no apparent distress. Behavior is calm. Pain: Unable to use pain ap3 scale. patient is non-verbal. Neuro: Level of Consciousness is awake, Oriented to person. Cardiovascular: Patient's skin is warm and dry. Respiratory: Airway is patent Respiratory effort is even, unlabored, Respiratory pattern is regular, symmetrical. Musculoskeletal: Swelling present in right eye and left eye. Historical: - Allergies: 09:47 No Known Allergies; ap3 - PMHx: 09:47 Alzheimers; cerebral ischemia; Dementia; DYSPHAGIA; Hyperlipidemia; Hypertension; ap3 muscle weakness, generalized; osteoarthritis; schizoaffective; - Immunization history:: Client reports receiving the 2nd dose of the Covid vaccine. - Social history:: Smoking status: unknown. Screenin:48 [facility] ED Fall Risk Assessment (Adult) Confusion or Disorientation Yes (5 pts) ap3 Intoxicated or Sedated Yes (3 pts) Impaired Gait Yes (1 pt) Mobility Assist Device Used. Abuse screen: Denies threats or abuse. Nutritional screening: No deficits noted. Tuberculosis screening: No symptoms or risk factors identified. Assessment: 11:40 Reassessment: Report called Adelita JACOBS at [place], sending [facility] to transport hb pt. Vital Signs: 09:45 BP 112 / 70; Pulse 63; Resp 17; Temp 97.7; Pulse Ox 100% ; Weight 69.94 kg; Height 66 ap3 in. ; 11:42 BP 113 / 75; Pulse 56; Resp 16; Pulse Ox 99% ; ko1 09:45 Body Mass Index 24.89 (69.94 kg, 167.64 cm) ap3 ED Course: 09:40 Patient arrived in ED. eb 09:40 Meenakshi Tenorio FNP-C is [facility]. snw 09:40 Yung Tirado MD is Attending Physician. snw 09:44 Indiana Salazar, ARLENE is Primary Nurse. ko1 09:47 Triage completed. ap3 09:48 Arm band placed on right wrist. ap3 09:49 Patient has correct armband on for positive identification. Bed in low position. Call ap3 light in reach. Side rails up X2. Adult w/ patient. Pulse ox on. NIBP on. 09:54 Inserted saline lock: 20 gauge in right antecubital area, using aseptic technique. ko1 Blood collected. 09:56 Basic Metabolic Panel Sent. ko1 09:56 CBC with Diff Sent. ko1 09:56 LFT's Sent. ko1 09:56 NT PRO-BNP Sent. ko1 09:56 Troponin HS Sent. ko1 10:20 Warm blanket given. monitoring and evaluation advisor on. mm9 10:20 Initial lab(s) drawn, by ED staff, EKG done, by ED staff, reviewed by Yung Tirado MD. mm9 10:48 EKG done. mm9 10:54 XRAY Chest (1 view) In Process Unspecified. EDMS 11:09 Anant Salinas MD is Referral Physician. jr11 11:22 called the office of Dr. David Devi at [phone]/ connected with the vice president education eb physician Dr. Fregoso. 12:20 Provided Education on: discharge instructions. ap3 12:20 No provider procedures requiring assistance completed. IV discontinued, intact, ap3 bleeding controlled, No redness/swelling at site. Pressure dressing applied. Administered Medications: 10:50 Drug: diphenhydrAMINE IVP 25 mg Route: IVP; Site: right antecubital; ko1 11:25 Follow up: Response: No adverse reaction ap3 11:25 Drug: Furosemide IVP 20 mg Route: IVP; Site: right antecubital; ap3 11:49 Follow up: Response: No adverse reaction ap3 Medication: 12:20 VIS not applicable for this client. ap3 Outcome: 11:10 Discharge ordered by . jr11 12:20 Discharged to skilled nursing. ap3 12:20 Condition: good 12:20 Discharge instructions given to patient, family, skilled nursing, EMS, Instructed on discharge instructions, follow up and referral plans. Demonstrated understanding of instructions, follow-up care. 12:23 Patient left the ED. ap3 Signatures: Dispatcher [employer] EDMS Meenakshi Tenorio, CONFERENCE PLANNING MANAGER-C CONFERENCE PLANNING MANAGER-Csnw Mery Hensley, RN RN Marlene Reynolds RN RN ap3 Ximena García Jose, MD MD jr11 Indiana Salazar RN RN ko1 Melanie Ventura mm9
--- NOTE | 2022-12-26 11:10 | EDPHYS ---
Physician Documentation [facility] Name: Ron Murray Age: 67 yrs Sex: Male : 1955 Arrival Date: 12/26/2022 Time: 09:32 Bed 7 Private MD: ED Physician Yung Tirado HPI: 12/26 09:53 This 67 yrs old Black Male presents to ER via EMS with complaints of Eye Swelling. jr11 10:15 Patient is a 67-year-old -Portuguese male with prior psych history, nonverbal, jr11 history of stroke. long term sent him here because they have noticed mild periocular edema and slight edema to his hands. Patient does not complain, has not been moaning, otherwise per the who is at bedside at bedside, he is at baseline.. Historical: - Allergies: 09:47 No Known Allergies; ap3 - PMHx: 09:47 Alzheimers; cerebral ischemia; Dementia; DYSPHAGIA; Hyperlipidemia; Hypertension; ap3 muscle weakness, generalized; osteoarthritis; schizoaffective; - Immunization history:: Client reports receiving the 2nd dose of the Covid vaccine. - Social history:: Smoking status: unknown. ROS: 10:15 Unable to obtain ROS due to baseline dementia. jr11 Exam: 10:15 Constitutional: This is a well developed, well nourished patient who is awake, alert, jr11 and in no acute distress. Head/Face: Normocephalic, atraumatic. Eyes: mild bilateral periocular edema ENT: Nares patent. No nasal discharge, no septal abnormalities noted. Oropharynx with no redness, swelling, or masses, exudates, or evidence of obstruction, uvula midline. Mucous membranes moist. Neck: Trachea midline, no thyromegaly or masses palpated, and no cervical lymphadenopathy. Supple, full range of motion without nuchal rigidity, or vertebral point tenderness. No Meningismus. Chest/axilla: Normal chest wall appearance and motion. Nontender with no deformity. No lesions are appreciated. Respiratory: diminishd at the bases Abdomen/GI: Soft, non-tender, with normal bowel sounds. No distension or tympany. No guarding or rebound. No evidence of tenderness throughout. Back: No spinal tenderness. No costovertebral tenderness. Full range of motion. Neuro: alert, awake, non verbal Vital Signs: 09:45 BP 112 / 70; Pulse 63; Resp 17; Temp 97.7; Pulse Ox 100% ; Weight 69.94 kg; Height 66 ap3 in. ; 11:42 BP 113 / 75; Pulse 56; Resp 16; Pulse Ox 99% ; ko1 09:45 Body Mass Index 24.89 (69.94 kg, 167.64 cm) ap3 MDM: 09:41 Patient medically screened. snw 10:15 Differential diagnosis: low albumin, poor mobility, less concerning SVC syndrome, no jr11 distension in or JVP, high salt intake, CHF, less likely allergic reaction, no rash, no mucosal involvement. 10:53 Data reviewed: vital signs, nurses notes. ED course: EKG interpreted by me shows normal jr11 sinus rhythm, left axis deviation, normal intervals, no acute ST changes.. 11:08 ED course: Chest x-ray with concern for congestive heart failure, in image interpreted jr11 by me. Radiologist saw potential for pneumonia however he does not have any leukocytosis he is afebrile vitals completely normal I presume this is mostly volume overload. He does have mild periocular edema, mild hand swelling. His BNP is negative however he can have diastolic dysfunction. Will refer to cardiology for an outpatient echo. No need for inpatient therapy given that he is not hypoxic.. 11:23 ED course: Spoke to Dr. Fregoso PCP agrees with POC, will f/u on Wednesday w patient. 12/26 09:45 Order name: Basic Metabolic Panel; Complete Time: 10:36 12/26 09:45 Order name: CBC with Diff; Complete Time: 10:36 12/26 09:45 Order name: LFT's; Complete Time: 10:36 12/26 09:45 Order name: NT PRO-BNP; Complete Time: 10:36 12/26 09:45 Order name: Troponin HS; Complete Time: 10:36 12/26 09:45 Order name: XRAY Chest (1 view); Complete Time: 11:03 12/26 09:45 Order name: EKG; Complete Time: 09:46 12/26 09:45 Order name: Cardiac monitoring; Complete Time: 09:56 12/26 09:45 Order name: EKG - Nurse/Tech; Complete Time: 10:21 12/26 09:45 Order name: IV Saline Lock; Complete Time: 09:56 12/26 09:45 Order name: Labs collected and sent; Complete Time: :56 12/26 09:45 Order name: O2 Per Protocol; Complete Time: 09:49 12/26 09:45 Order name: O2 Sat Monitoring; Complete Time: 09:49 [facility] Administered Medications: 10:50 Drug: diphenhydrAMINE IVP 25 mg Route: IVP; Site: right antecubital; ko1 11:25 Follow up: Response: No adverse reaction ap3 11:25 Drug: Furosemide IVP 20 mg Route: IVP; Site: right antecubital; ap3 11:49 Follow up: Response: No adverse reaction ap3 Disposition Summary: 12/26/22 11:10 Discharge Ordered Location: Home jr11 Condition: Stable jr11 Diagnosis - Unspecified combined systolic (congestive) and diastolic (congestive) heart failure jr11 - Edema, unspecified jr11 Followup: jr11 - With: Anant Salinas MD - When: 1 - 2 days - Reason: Recheck today's complaints Discharge Instructions: - Discharge Summary Sheet jr11 - Heart Failure, Diagnosis jr11 - Edema jr11 Forms: - Medication Reconciliation Form jr11 - Thank You Letter jr11 - Antibiotic Education jr11 - Prescription Opioid Use jr11 - Patient Portal Instructions jr11 - Leadership Thank You Letter jr11 Prescriptions: - Lasix 20 mg Oral Tablet - take 1 tablet by ORAL route once daily; 20 tablet; Refills: 0, Product jr11 Selection Permitted Signatures: Dispatcher [employer] Meenakshi Heath FNP-C PATTERNMAKER BENCH-Csnw Marlene Sandoval, RN RN ap3 Yung Tirado MD MD jr11 Indiana Salazar, RN RN ko1
[2022-12-26] MEDS ORDERED: FUROSEMIDE 20 MG/ 2ML VIAL ONE (11:29)
[2022-12-26 12:33] VITALS: TEMP 97.7
[2022-12-26 12:38] VITALS: BP 113/75; O2SAT 99
--- NOTE | 2022-12-28 18:04 | EKG ---
Test Date: 2022-12-26 Test Time: 10:40:37 Asset Protection Representative: GENESIS MEASUREMENT RESULTS: Intervals: Rate: 62 NC: 186 QRSD: 104 QT: 384 QTc: 389 [place]: P: 61 NC: 186 QRS: -29 T: 56 INTERPRETIVE STATEMENTS: Normal sinus rhythm Nonspecific T wave abnormality Abnormal ECG Compared to ECG 01/01/2022 09:08:05 Sinus bradycardia no longer present T-wave abnormality still present Electronically Signed On 12-28-22 17:58:28 CDT by Anant Salinas
== END 2022-12-26 12:23 | disposition home or self-care (01) ==
LOC: ER 09:32
DX: I50.40 Unspecified combined systolic (congestive) and diastolic (congestive) heart failure (principal); R60.9 Edema, unspecified; G30.9 Alzheimer's disease, unspecified; F02.80 Dementia in other diseases classified elsewhere, unspecified severity, without behavioral disturbance, psychotic disturbance, mood disturbance, and anxiety; E78.5 Hyperlipidemia, unspecified; I10 Essential (primary) hypertension; R13.10 Dysphagia, unspecified; F25.9 Schizoaffective disorder, unspecified; M62.81 Muscle weakness (generalized)
CPT/HCPCS: 93005; 85025; 80048; 36415; 80076; 84484; 83880; 71045; 96375; 96374; 99285; J1940; J1200

== ENCOUNTER 2023-05-05 18:10 | Inpatient (IN) | payer OTHER ==
--- OUTSIDE RECORDS SUMMARY | 2023-05-05 18:13 | XMS REPORT | Continuity of Care Document ---
Author Name Unknown Address [address] [place] [address] [facility] thconnect Address [address] [place] [address] Care Team Providers Care Staffing Consultant Name Role Phone DR FACUNDO JOHN Attending Clinician UnavailLESTER Phillips Attending Clinician Unavailable DARLENE Attending Clinician Unavailable SHRUTHI FRIED Attending Clinician Unavailable BRIDGETTE MANDUJANO Attending Clinician UnavailVIRGINIA Abarca Attending Clinician Unavailable CAMERON PADGETT Attending Clinician Unavailable DR FACUNDO JOHN Admitting Clinician Unavaildanielle COLON Admitting Clinician Unavailable Payers Payer Name Policy Type Policy Number Effective Date Expirati on Date Source Allergies, Adverse Reactions, Alerts Allergy Name Allergy Type Status Severity Reaction(s) Onset Date Inactive Date Treating Clinician Comments Source No Known Allergie s DA [facility] Vital Signs Vital Name Observation Time Observation Value Comments S latisha Weight 2020-04-15 07:00:00 65.13 KG Weight 2020-04-08 10:33:00 65.58 KG Weight 2020-04-08 09:57:00 65.31 KG Height 2020-04-03 09:34:00 175.26 CM Encounters Start Date/Time End Date/Time Encounter Type Admission Type Attending Clinicians Care Facility Care Department Encounter ID Source 2020-04-03 13:14:00 Inpatient FACUNDO PERALTA [facility] [id number] [facility] 2023-03-29 08:33:00 2023-03-29 08:33:00 Outpatient LESTER CHEN [facility] [id number] [facility] 2021-06-04 12:18:00 2021-06-04 12:18:00 Outpatient JAMES MESSER [facility] [id number] [facility] Outre h Program 2020-03-08 14:24:00 2020-03-08 18:10:00 Emergency ER SHRUTHI FRIED [facility] [id number] [facility] 2019-11-23 20:37:00 2019-11-23 22:49:00 Emergency ER BRIDGETTE MANDUJANO [facility] [id number] [facility] 2015-04-26 08:07:00 2015-04-26 08:07:00 Outpatient VIRGINIA GRAHAM [facility] [id number] [facility] 2010-09-24 07:19:00 2010-09-24 08:30:00 Emergency ER CAMERON PADGETT [facility] [id number] [facility] Results Test Description Test Time Test Comments Results Result Co mments Source GLUCOMETER GLUCOSE- LAB USE [id number] 07:28:00* Test Item Value Reference Range Interpretation Comme nts GLUCOMETER (test code = GMG) 102 mg/dL 70-100 H CLEANED METERMet er ID: [id number]: [id number] JENNIFER VO B12 [id number] 18:26:00* Test Item Value Reference Range Interpretation Comme nts VIT B12 (test code = A60) 459.0 pg/mL 180.0-914.0 [id number] 18:26:00* Test Item Value Reference Range Interpretation Comme nts FOLATE (test code = A75) 15.0 ng/mL 3.1-17.5 LIPID [id number] 18:26:00* Test Item Value Reference Range Interpretation Comme nts CHOLESTROL (test code = 44A) 192 mg/dL 140-200 TRIGLYCERI (test code = 42B) 61 mg/dL <=149 HDL (test code = 83D) 94.0 mg/dL 40.0-60.0 H LDL (test code = 34B) 86 mg/dL <=99 CHL/HDL (test code = CHR) 2.0 0.0-3.4 THYROID PANEL/SCREEN (TSH)2020-04-03 18:22:00* Test Item Value Reference Range Interpretation Comme nts TSH (test code = A57) 0.610 uIU/mL 0.358-3.740 [id number] 18:18:00* Test Item Value Reference Range Interpretation Comme nts MAGNESIUM (test code = 48A) 2.2 mg/dL 1.8-2.4 [id number] 18:18:00* Test Item Value Reference Range Interpretation Comme nts PREALBUMIN (test code = 08E) 34 mg/dL 18-38 [id number] 18:05:00* Test Item Value Reference Range Interpretation Comme nts Hb A1C % (test code = HBA) 4.7 % 3.8-6.4 A1C % (test code = A1C) HbA1c (% ) Reference Range Normal <5.7 Prediabetes 5.7-6.4 Diabetic >=6.5 [id number] 11:51:00* Test Item Value Reference Range Interpretation Comme nts ACETAMINPH (test code = 94M) <2.0 ug/mL 10.0-30.0 L [id number] 11:49:00* Test Item Value Reference Range Interpretation Comme nts FERRITIN (test code = A19) 521.4 ng/mL 26.0-388.0 H LDH-LACTIC [id number] 11:49:00* Test Item Value Reference Range Interpretation Comme nts LDH (test code = 33A) 241 IU/L 87-241 C-REACTIVE PROTEIN [id number] 11:41:00* Test Item Value Reference Range Interpretation Comme nts CRP QUANT (test code = CRPQ) <2.9 mg/L 0.0-2.9 Method Change (test code = METHOD) Please note the change in Method and the reference range COMPREHENSIVE METABOLIC [id number] 11:41:00* Test Item Value Reference Range Interpretation Comme nts GLUCOSE (test code = 06D) 86 mg/dL 75-100 SODIUM (test code = 01A) 142 mmol/L 136-145 POTASSIUM (test code = 01B) 4.0 mmol/L 3.6-5.1 CHLORIDE (test code = 04A) 107 mmol/L 98-107 CO2 (test code = 02A) 30 mmol/L 22-32 ANION GAP (test code = ANG) 9.0 mmol/L BUN (test code = 05D) 13 mg/dL 7-18 CREATININE (test code = 03E) 1.1 mg/dL 0.7-1.3 GFR (test code = GFR) 69 mL/min/1.73m\S\2 >=90 L GFR (test code = GFRAA) 80 mL/min/1.73m\S\2 >=90 L EGFR (test code = EGFR) eGFR BY CKD-EPI CALCULATION IS NOT RECOMMENDED FOR PATIENTS UNDER 18 YEARS OF AGE. BUN/CREA (test code = BCR) 12 12-20 CALCIUM (test code = 09D) 9.0 mg/dL 8.3-9.5 BILI TOTAL (test code = 11A) 0.2 mg/dL 0.2-1.0 PROTEIN (test code = 07D) 8.1 g/dL 6.4-8.2 ALBUMIN (test code = 08D) 4.1 g/dL 3.5-4.8 GLOBULIN (test code = GLB) 4.0 g/dL 1.5-3.8 H ALB/GLOB (test code = AGRR) 1.0 1.0-2.6 ALK PHOS (test code = 35A) 101 IU/L 42-121 AST (test code = 30A) 30 IU/L <=42 ALT (test code = 31A) 36 IU/L <=78 [id number] 11:41:00* Test Item Value Reference Range Interpretation Comme nts SALICYLATE (test code = 94B) <1.7 mg/dL 2.8-20.0 L ALCOHOL BLOOD (ETOH)2020-04-03 11:38:00* Test Item Value Reference Range Interpretation Comme nts ETOH (test code = HALC) ETHANOL * The result is to be used only for medical purposes ALCOHOL (test code = 56A) <10 mg/dL <=10 CARDIAC [id number] 11:37:00* Test Item Value Reference Range Interpretation Comme nts TROPONIN I (test code = A84) <0.015 ng/mL 0.000-0.045 SARS-CoV (RAPID ANTIGEN)2020-04-03 11:34:00* Test Item Value Reference Range Interpretation Comme nts SARS-CoV (ANTIGEN) (test code = COVAG) NEGATIVE NEGATIVE COVID AG (test code = COVAGC) This test has been marketed under the FDA Emergency Use Authorization (EUA) to meet challenges of the COVID-19 pandemic. The validation standards normally enforced by the FDA and the [employer] (CAP) are more stringent than those required for this test. Therefore, the result should be interpreted with caution and close attention to other clinical and epidemiological data AMMONIA [id number] 11:32:00* Test Item Value Reference Range Interpretation Comme nts AMMONIA (test code = 54A) 18 umol/L 1132 PRO TIME AND [id number] 11:26:00* Test Item Value Reference Range Interpretation Comme nts PT (test code = TT) 10.6 s 9.8-13.6 INR (test code = INR) 0.9 INRH (test code = INRH) SUGGESTED THERAPEUTIC RANGE FOR INR: 2.5 - 3.5 For Patients with Prosthetic Valves or Patients with recurrent Thromboembolic Events 2.0 - 3.0 For Most Other Applications PTT (test code = PTT) 34.3 s 20.2-38.0 PTTH (test code = PTTH) To monitor the effectiveness of heparin, we offer the Anti-Xa (Heparin Assay). It can be used for either unfractionated or LMW Heparin. Order Code is ANTI-XA [id number] 11:26:00* Test Item Value Reference Range Interpretation Comme nts D-DIMER (test code = DDI) 530 ng/mL D-DU 0-234 H D-DIMER COMMENT (test code = DDCOM) *Level to rule out DVT or PE: <235 ng/mL D-DU* CBC (INCLUDES AUTOMATED DIFFERENTIAL)2020-04-03 11:22:00* Test Item Value Reference Range Interpretation Comme nts WBC (test code = WBC) 4.2 10\S\3/uL 4.5-11.0 L RBC (test code = RBC) 4.32 10\S\6/uL 4.20-5.60 HGB (test code = HBG) 13.4 g/dL 14.0-18.0 L HCT (test code = HCT) 42.1 % 35.0-46.0 MCV (test code = MCV) 97.5 fL 80.0-94.0 H MCH (test code = MCH) 31.0 pg 27.0-31.0 MCHC (test code = MCHC) 31.8 g/dL 32.0-36.0 L RDW (test code = RDW) 11.8 % 11.5-14.5 PLT (test code = PLT) 261 10\S\3/uL 130-400 MPV (test code = MPV) 9.7 fL 9.4-12.4 NEUTROP # (test code = NE#) 2.8 10\S\3/uL 2.0-8.0 LYMPH # (test code = LY#) 0.8 10\S\3/uL 1.2-4.0 L MONOCYTE # (test code = MO#) 0.4 10\S\3/uL 0.0-1.1 EOSINOPH # (test code = EO#) 0.1 10\S\3/uL 0.0-0.7 BASOPHIL # (test code = BA#) 0.0 10\S\3/uL 0.0-0.3 IG # (test code = IG#) 0.01 10\S\3/uL 0.00-0.06 NRBC # (test code = NRBC#) 0.00 10\S\3/uL 0.00-0.01 NEUTROPH % (test code = NE%) [...]
[2023-05-05] MEDS ORDERED: NA CHLORIDE 0.9% 2,000 ML ONE (18:21)
--- NOTE | 2023-05-05 18:49 | RAD REPORT ---
EXAM DESCRIPTION: RAD - Chest Single View - 05/05/2023 6:40 pm CLINICAL HISTORY: CHEST PAIN Chest pain. COMPARISON: Chest Single View dated 12/26/2022; Chest Single View dated 01/01/2022; Chest Single View dated 11/07/2021; Chest Single View dated 06/22/2021 FINDINGS: Portable technique limits examination quality. The lungs are grossly clear. The heart is normal in size. No displaced fractures. IMPRESSION: No acute intrathoracic process suspected.
[2023-05-05 19:28] LABS: Absolute Lymphocytes (CBC) 1.1 K/uL (0.7-4.9); Hematocrit 37.7 % (39.6-49.0); Lymphocytes % 19.7 % (15.3-44.8); MCV 92.4 fL (80-100); MPV 7.7 fL (7.6-11.3); Platelets 270 thou/uL (152-406); RBC Red Blood Cell Count 4.08 M/uL (4.33-5.43)
[2023-05-05 19:32] LABS: Protime INR 1.17
[2023-05-05 19:35] LABS: Albumin 3.8 g/dL (3.4-5.0); Bilirubin Total 0.3 mg/dL (0.2-1.0); Potassium 4.2 mEq/L (3.5-5.1); Protein, Total 8.6 g/dL (6.4-8.2)
[2023-05-05 19:40] LABS: SARS-COV-2 RT PCR POSITIVE (NEGATIVE)
--- NOTE | 2023-05-05 20:19 | RAD REPORT ---
EXAM DESCRIPTION: CT - Head Brain Wo Cont - 05/05/2023 7:34 pm CLINICAL HISTORY: DECLINING STATE Headache, drowsiness COMPARISON: Head Brain Wo Cont dated 01/01/2022; Head Brain Wo Cont dated 03/29/2020 TECHNIQUE: All CT scans are performed using dose optimization technique as appropriate and may inclu de automated exposure control or mA/KV adjustment according to patient size. 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 The paranasal sinuses and mastoids are clear. The calvarium is intact. IMPRESSION: No acute intracranial abnormality.
--- NOTE | 2023-05-05 20:29 | EDPHYS ---
Physician Documentation [facility] Name: Ron Murray Age: 68 yrs Sex: Male : 1955 Arrival Date: 05/05/2023 Time: 18:10 Bed 19 Private MD: ED Physician Varghese Arita HPI: 05/05 18:31 This 68 yrs old Black Male presents to ER via EMS with complaints of lethargy. sb4 18:31 The patient's problem is reported as altered mental status, decreased responsiveness, sb4 obtunded. Onset: The symptoms/episode began/occurred today. Context:. patient lives [place], is known to be covid positive, he was very lethargic/barely responsive when they came to check on him this evening. is apparently typically very talkative, last known normal at 1200. Historical: - Allergies: 18:17 No Known Allergies; kc6 - PMHx: 18:17 Alzheimers; cerebral ischemia; Dementia; DYSPHAGIA; Hyperlipidemia; Hypertension; kc6 muscle weakness; schizoaffective; osteoarthritis; - Immunization history:: Adult Immunizations unknown. - Social history:: Smoking status: unknown. ROS: 18:31 Unable to obtain ROS due to altered mental status, obtunded state, sb4 Exam: 18:31 Head/Face: Normocephalic, atraumatic. Skin: Warm, dry with normal turgor. Normal sb4 color with no rashes, no lesions, and no evidence of cellulitis. 18:31 Constitutional: The patient appears lethargic, pale, 18:31 Eyes: Pupils: equal, round, and reactive to light and accomodation, 18:31 ENT: Mouth: Oral mucosa: dry, 18:31 Cardiovascular: Rate: normal, Rhythm: regular, 18:31 Respiratory: the patient does not display signs of respiratory distress, Respirations: normal, Breath sounds: are clear throughout, 18:31 Abdomen/GI: Inspection: abdomen appears normal, Bowel sounds: normal, Palpation: abdomen is soft and non-tender, 18:31 Neuro: Orientation: unable to test, the patient has a history of dementia, Mentation: unable to follow commands, somnolent, seizure activity, is not displayed by the patient, 20:31 Radiologist reports: CT head negative for CVA/mass sb4 Vital Signs: 18:15 BP 80 / 51; Pulse 74; Resp 16 S; Temp 98.1(A); Pulse Ox 95% on R/A; Weight 68.04 kg (M);kc6 18:56 BP 110 / 82; Pulse 67; Resp 16 S; Pulse Ox 99% on R/A; kc6 20:00 BP 102 / 62; Pulse 65; Resp 12; Pulse Ox 100% ; vc1 21:00 BP 109 / 75; Pulse 72; Resp 16; Pulse Ox 98% ; vc1 22:00 BP 111 / 66; Pulse 89; Resp 17; Pulse Ox 96% ; vc1 MDM: 18:17 Patient medically screened. sb4 18:31 Differential diagnosis: CVA, TIA, Dementia, Alzheimer disease, Parkinson disease, sb4 metabolic disorder, drug effects, covid, pneumonia, uti, dehydreation. 20:26 Data reviewed: vital signs, nurses notes, EMS record, lab test result(s), EKG, sb4 radiologic studies, and as a result, I will admit patient. Consideration of Admission/Observation Patient was admitted/placed on observation. 20:28 Historians other than the Patient: Daughter/Son: daughter. Care significantly affected sb4 by the following chronic conditions: Hypertension. Counseling: I had a detailed discussion with the patient and/or guardian regarding the historical points, exam findings, and any diagnostic results supporting the discharge/admit diagnosis, lab results, radiology results, the need for further work-up and treatment in the hospital. 05/05 18:19 Order name: Blood Culture Adult (2) sb4 05/05 18:19 Order name: CBC with Diff; Complete Time: 19:37 sb4 05/05 18:19 Order name: CMP; Complete Time: 19:47 sb4 05/05 18:19 Order name: Lactate w/ 2H reflex if indic.; Complete Time: 19:36 sb4 05/05 18:19 Order name: Protime (+inr); Complete Time: 19:36 sb4 05/05 18:19 Order name: Ptt, Activated; Complete Time: 19:36 sb4 05/05 18:19 Order name: Urinalysis w/ reflexes; Complete Time: 13:10 sb4 05/05 18:20 Order name: COVID-19/FLU A+B; Complete Time: 19:46 sb4 05/05 18:35 Order name: Glucose, Ancillary Testing; Complete Time: 18:36 EDMS 05/05 21:19 Order name: Urinalysis w/ reflexes EDMS 05/05 21:19 Order name: CBC with Automated Diff EDMS 05/05 21:19 Order name: CBC with Automated Diff; Complete Time: 13:10 EDMS 05/05 21:19 Order name: Comprehensive Metabolic Panel EDMS 05/05 21:19 Order name: Comprehensive Metabolic Panel; Complete Time: 13:10 EDMS 05/05 21:19 Order name: Magnesium EDMS 05/05 21:19 Order name: Magnesium; Complete Time: 13:10 EDMS 05/05 21:19 Order name: Phosphorus EDMS 05/05 21:19 Order name: Phosphorus; Complete Time: 13:10 EDMS 05/06 01:22 Order name: Magnesium; Complete Time: 13:10 EDMS 05/05 18:19 Order name: Chest Single View XRAY; Complete Time: 18:53 sb4 05/05 18:20 Order name: Head Brain Wo Cont CT; Complete Time: 20:20 sb4 05/05 18:19 Order name: EKG; Complete Time: 18:20 sb4 05/05 18:19 Order name: Accucheck; Complete Time: 18:20 sb4 05/05 18:19 Order name: Cardiac monitoring; Complete Time: 18:20 sb4 05/05 18:19 Order name: EKG - Nurse/Tech; Complete Time: 18:31 sb4 05/05 18:19 Order name: IV Saline Lock - Large Bore; Complete Time: 18:55 sb4 05/05 18:19 Order name: Labs collected and sent; Complete Time: 18:55 sb4 05/05 18:19 Order name: O2 Per Protocol; Complete Time: 18:20 sb4 05/05 18:19 Order name: O2 Sat Monitoring; Complete Time: 18:20 sb4 05/05 18:19 Order name: Vital Signs; Complete Time: 18:20 sb4 05/05 19:04 Order name: Misc. Order: recollect blue and lavender top; Complete Time: 19:27 jr12 EC:36 Rate is 57 beats/min. Rhythm is regular, Sinus bradycardia. IA interval is normal at sb4 194 msec. QRS interval is normal at 110 msec. QT interval is normal at 354 msec. No Q waves. T waves are Normal. No ST changes noted. Clinical impression: Sinus bradycardia and No evidence of ischemia. Interpreted by me. Reviewed by me. Administered Medications: 18:56 Drug: NS 0.9% IV (30 ml/kg) 30 ml/kg IV at bolus once; Sepsis Protocol Route: IV; Rate: kc6 bolus; Site: right antecubital; 05/06 01:00 Drug: Magnesium Sulfate IVPB 1 grams IVPB once over 1 hrs Route: IVPB; Infused Over: 1 vc1 hrs; Site: right antecubital; Disposition: 05/05 20:31 Chart complete. sb4 Disposition Summary: 05/05/23 20:29 Hospitalization Ordered Notes: Hospitalization Status: Inpatient Admission sb4 Provider: Beni Ceballos Location: Telemetry/MedSurg (Inpatient) sb4 Condition: Fair sb4 Problem: new sb4 Symptoms: are unchanged sb4 Bed/Room Type: Standard sb4 Room Assignment: 220(05/06/23 04:01) vc1 Diagnosis - Acute kidney failure, unspecified sb4 - SARS-associated coronavirus as the cause of diseases classified elsewhere sb4 Forms: - Medication Reconciliation Form sb4 - SBAR form sb4 - Leadership Thank You Letter sb4 Addendum: 05/07/2023 07:16 I was immediately available for consultation during this patient's visit. I did not e c2 personally see the patient or guide the patient's care. . Signatures: Dispatcher [employer] Karrie Galloway RN RN vc1 Vee Blankenship RN RN kc6 Latisha Mcgarry PA-C PA-C sb4 Varghese Arita MD MD ec2 Suri Moore jr12 Corrections: (The following items were deleted from the chart) 05/05 18:17 18:17 PMHx: muscle weakness; kc6 kc6 18:17 18:17 PMHx: muscle weakness; kc6 kc6 18:41 18:31 patient lives [place], is known to be covid positive, he was very lethargic/barely sb4 responsive when they came to check on him this evening. is apparently typically very talkative, last know normal at 1200. sb4 05/06 04:01 05/05 20:29 sb4 vc1
--- NOTE | 2023-05-05 20:29 | ER ---
Nurse's Notes [facility] Name: Ron Murray Age: 68 yrs Sex: Male : 1955 Arrival Date: 05/05/2023 Time: 18:10 Bed 19 Private MD: Diagnosis: Acute kidney failure, unspecified;SARS-associated coronavirus as the cause of diseases classified elsewhere Presentation: 05/05 18:15 Chief complaint: EMS states: pt is from [place] and was seen normal around 1200. pt kc6 is normally awake, talking, and able to feed himself. BGL en route 126. pt is known to be covid positive. Coronavirus screen: At this time, the client does not indicate any symptoms associated with coronavirus-19. Ebola Screen: No symptoms or risks identified at this time. Initial Sepsis Screen: Does the patient meet any 2 criteria? Altered Mental Status. No. Patient's initial sepsis screen is negative. Does the patient have a suspected source of infection? No. Patient's initial sepsis screen is negative. Risk Assessment: Do you want to hurt yourself or someone else? Patient reports no desire to harm self or others. Onset of symptoms was May 05, 2023. 18:15 Method Of Arrival: EMS: [facility] kc6 18:15 Acuity: DELILAH 2 kc6 Triage Assessment: 18:17 General: Appears in no apparent distress. comfortable, well groomed, well developed, kc6 Behavior is inappropriate for age, unresponsive. pt does not respond to verbal or painful stimuli at this time. Pain: Unable to use pain scale. Patient is disoriented. FLACC scale score is 0 out of 10. Patient is unresponsive. EENT: No signs and/or symptoms were reported regarding the EENT system. Neuro: Level of Consciousness is lethargic, listless, unresponsive, Oriented to none. Cardiovascular: Capillary refill < 3 seconds. Respiratory: Airway is patent Trachea midline Respiratory effort is even, unlabored, Respiratory pattern is regular, symmetrical. GI: No signs and/or symptoms were reported involving the gastrointestinal system. : No signs and/or symptoms were reported regarding the genitourinary system. Derm: No signs and/or symptoms reported regarding the dermatologic system. Skin is intact, is healthy with good turgor, Skin is pink, warm \T\ dry. Musculoskeletal: No signs and/or symptoms reported regarding the musculoskeletal system. Circulation, motion, and sensation intact. Capillary refill < 3 seconds, Range of motion: intact in all extremities. Historical: - Allergies: 18:17 No Known Allergies; kc6 - PMHx: 18:17 Alzheimers; cerebral ischemia; Dementia; DYSPHAGIA; Hyperlipidemia; Hypertension; kc6 muscle weakness; schizoaffective; osteoarthritis; - Immunization history:: Adult Immunizations unknown. - Social history:: Smoking status: unknown. Screenin:19 [facility] ED Fall Risk Assessment (Adult) History of falling in the last 3 months, kc6 including since admission No falls in past 3 months (0 pts) Confusion or Disorientation Yes (5 pts) Intoxicated or Sedated No (0 pts) Impaired Gait Yes (1 pt) Mobility Assist Device Used Yes (1 pt) Altered Elimination No (0 pt) Score/Fall Risk Level 3 or more points = High Risk. Abuse screen: Denies threats or abuse. Denies injuries from another. Nutritional screening: No deficits noted. Tuberculosis screening: No symptoms or risk factors identified. 19:00 [place] Swallow Protocol Exclusion Criteria: Unable to remain alert for testing: Yes. vc1 Assessment: 18:19 Reassessment: please see triage assessment. kc6 20:00 Reassessment: No changes from previously documented assessment. Patient and/or family vc1 updated on plan of care and expected duration. Pain level reassessed. Patient is alert, oriented x 3, equal unlabored respirations, skin warm/dry/pink. 21:00 Reassessment: No changes from previously documented assessment. Patient and/or family vc1 updated on plan of care and expected duration. Pain level reassessed. Patient is alert, oriented x 3, equal unlabored respirations, skin warm/dry/pink. 22:00 Reassessment: No changes from previously documented assessment. Patient and/or family vc1 updated on plan of care and expected duration. Pain level reassessed. Patient is alert, oriented x 3, equal unlabored respirations, skin warm/dry/pink. Vital Signs: 18:15 BP 80 / 51; Pulse 74; Resp 16 S; Temp 98.1(A); Pulse Ox 95% on R/A; Weight 68.04 kg (M);kc6 18:56 BP 110 / 82; Pulse 67; Resp 16 S; Pulse Ox 99% on R/A; kc6 20:00 BP 102 / 62; Pulse 65; Resp 12; Pulse Ox 100% ; vc1 21:00 BP 109 / 75; Pulse 72; Resp 16; Pulse Ox 98% ; vc1 22:00 BP 111 / 66; Pulse 89; Resp 17; Pulse Ox 96% ; vc1 ED Course: 18:15 Patient arrived in ED. kc6 18:17 Latisha Mcgarry PA-C is PHCP. sb4 18:17 Varghese Arita MD is Attending Physician. sb4 18:17 Triage completed. kc6 18:17 Arm band placed on. kc6 18:19 Patient has correct armband on for positive identification. Placed in gown. Bed in low kc6 position. Call light in reach. Side rails up X2. Client placed on continuous cardiac and pulse oximetry monitoring. NIBP monitoring applied. luggage attendant on. 18:19 Patient maintains SpO2 saturation greater than 95% on room air. kc6 18:20 Vee Blankenship, ARLENE is Primary Nurse. kc6 18:42 Chest Single View XRAY In Process Unspecified. EDMS 18:56 Inserted saline lock: 20 gauge in right antecubital area, using aseptic technique. kc6 Blood collected. 19:35 Head Brain Wo Cont CT In Process Unspecified. EDMS 20:28 Beni Ceballos MD is Hospitalizing Provider. sb4 05/06 04:19 No provider procedures requiring assistance completed. Patient admitted, IV remains in vc1 place. Administered Medications: 05/05 18:56 Drug: NS 0.9% IV (30 ml/kg) 30 ml/kg IV at bolus once; Sepsis Protocol Route: IV; Rate: kc6 bolus; Site: right antecubital; 05/06 01:00 Drug: Magnesium Sulfate IVPB 1 grams IVPB once over 1 hrs Route: IVPB; Infused Over: 1 vc1 hrs; Site: right antecubital; Medication: 04:20 VIS not applicable for this client. vc1 Outcome: 05/05 20:29 Decision to Hospitalize by Provider. sb4 05/06 04:19 Admitted to Med/surg accompanied by tech, via stretcher, room 220, Report called to vc1 ARLENE [place] Condition: good Instructed on the need for admit, 04:44 Patient left the ED. rv1 Signatures: Dispatcher [facility] EDMS Karrie Burr RN RN vc1 Vee Blankenship RN RN kc6 Latisha Mcgarry PA-C PA-C sb4 Maliha Juan rv1 Corrections: (The following items were deleted from the chart) 05/05 18:17 18:17 PMHx: muscle weakness; kc6 kc6 18:17 18:17 PMHx: muscle weakness; kc6 kc6
[2023-05-05] MEDS ORDERED: ACETAMINOPHEN 500 MG TAB PO PRN (21:10)
--- NOTE | 2023-05-05 21:23 | P.HP ---
Certification for Inpatient Patient admitted to: Inpatient With expected LOS: >2 Midnights Patient will require the following post-hospital care: None Practitioner: I am a practitioner with admitting privileges, knowledge of patient current condition, hospital course, and medical plan of care. Services: Services provided to patient in accordance with Admission requirements found in Title 42 Section 412.3 of the Code of Federal Regulations Patient History Date of Service: 05/05/23 Reason for admission: acute on chronic CKD, Covid Allergies No Known Allergies Allergy (Unverified 05/05/23 21:19) Home medications list reviewed: Yes - Past Medical/Surgical History Diabetic: No -: neuroleptic parkinsonism -: CHF -: HTN -: schizoaffective disorder -: dysphagia -: anxiety -: HLD -: Cerebral ischemia -: right nephrectomy Psychosocial/ Personal History: Lives at [facility]. to [place] [phone] - Social History Smoking Status: Unknown if ever smoked Alcohol use: No CD- Drugs: No Caffeine use: Yes Place of Residence: [place] Review of Systems 10-point ROS is otherwise unremarkable General: Weakness, Malaise Eyes: Unremarkable ENT: Unremarkable Respiratory: Unremarkable Cardiovascular: As per HPI Gastrointestinal: Unremarkable Genitourinary: Unremarkable Musculoskeletal: Unremarkable Integumentary: Unremarkable Neurological: Weakness, As per HPI Physical Examination - Physical Exam General: In no apparent distress, Demented HEENT: Atraumatic, Normocephalic Neck: Supple, JVD not distended Respiratory: Clear to auscultation bilaterally, Normal air movement Cardiovascular: No edema, Normal pulses, Regular rate/rhythm, Other (bradycardic) Capillary refill: <2 Seconds Gastrointestinal: Normal bowel sounds, Non-distended, Other (firm) Musculoskeletal: No clubbing Neurological: Abnormal affect, Dementia Lymphatics: No axilla or inguinal lymphadenopathy Rectal: Deferred - Studies Laboratory Data (last 24 hrs) 05/05/23 05/05/23 05/05/23 19:12 19:12 18:35 WBC 5.70 Hgb 12.2 L Hct 37.7 L Plt Count 270 PT 12.8 H INR 1.17 APTT 28.8 Sodium 147 H Potassium 4.2 BUN 56 H Creatinine 2.61 H Glucose 105 Total Bilirubin 0.3 AST 128 H ALT 37 Alkaline Phosphatase 88 Assessment and Plan - Problems (Diagnosis) (1) Hypertension associated with stage 2 chronic kidney disease due to type 2 diabetes mellitus Current Visit: Yes Status: Acute Plan: Pt appeared dehydrated. Rec'd 30ml/kg NS bolus in ED Money Room Teller electrolytes, replenish as needed Hold antihypertensives for now as SBP 88-116 I&O (2) Congestive heart disease Current Visit: Yes Status: Acute Plan: Hold lasix for now until repeat electrolytes. Pt was dehydrated and received IVF bolus in ED Monitor and replenish electrolytes daily weight (3) Dehydration symptoms Current Visit: Yes Status: Acute Plan: NS at 75ml/hr (4) COVID Current Visit: Yes Status: Acute Plan: Pt tested positive about 9 days ago. Not symptomatic at this time - Advance Directives Does patient have a Living Will: No Does patient have a Durable POA for Healthcare: No
[2023-05-06] MEDS ORDERED: Magnesium Sulfate 2gm IVPB 2 G/50 ML BAG IV ONE (00:51)
[2023-05-06 03:14] LABS: Hematocrit 34.2 % (39.6-49.0); Lymphocytes % 14.2 % (15.3-44.8); MPV 7.9 fL (7.6-11.3); Platelets 235 thou/uL (152-406); RBC Red Blood Cell Count 3.72 M/uL (4.33-5.43)
[2023-05-06 03:28] LABS: Albumin 3.1 g/dL (3.4-5.0); Bilirubin Total 0.3 mg/dL (0.2-1.0); Magnesium 2.9 mg/dL (1.6-2.4); Phosphorus 2.5 mg/dL (2.5-4.9); Potassium 4.2 mEq/L (3.5-5.1); Protein, Total 7.2 g/dL (6.4-8.2)
[2023-05-06 04:27] VITALS: BMI 25.2
[2023-05-06] MEDS ORDERED: HEPARIN 5000 UNIT/ML 1 ML VIAL ONE (04:37)
[2023-05-06] MEDS: HEPARIN 5000 UNIT/ML 1 ML VIAL SQ SCH ×3 (04:40→18:03)
[2023-05-06 04:50] LABS: Specific Gravity 1.021 (1.005-1.030); Urine Bacteria None Seen /HPF (<20); Urine Bilirubin NEGATIVE (Negative); Urine Blood 2+ (Negative); Urine Clarity Clear (Clear); Urine Color Light-Yellow (Yellow); Urine Glucose NEGATIVE (Negative); Urine Mucus Slight /HPF (None Seen); Urine Protein NEGATIVE (Negative); Urine RBC 21-50 /HPF (None Seen); Urine Urobilinogen Normal (Normal); Urine pH 5.5 (5.0-7.0)
[2023-05-06] MEDS ORDERED: POTASS/SODIUM PHOSPHATE 1 PKT POWD.PACK PO SCH (08:00)
[2023-05-06] MEDS: POTASS/SODIUM PHOSPHATE 1 PKT POWD.PACK PO SCH ×3 (10:00→11:23)
[2023-05-06] MEDS ORDERED: POTASS/SODIUM PHOSPHATE 1 PKT POWD.PACK PO ONE (13:15)
--- NOTE | 2023-05-06 13:19 | EKG ---
Test Date: 2023-05-06 Test Time: 00:53:17 [employer]: MEASUREMENT RESULTS: Intervals: Rate: 81 AR: 182 QRSD: 102 QT: 368 QTc: 427 [place]: P: 71 AR: 182 QRS: -5 T: 65 INTERPRETIVE STATEMENTS: Normal sinus rhythm Low voltage QRS Borderline ECG Compared to ECG 05/05/2023 18:26:01 Low QRS voltage now present Sinus bradycardia no longer present Electronically Signed On 05-06-23 13:18:10 BLUEPRINTER by Anant Salinas
--- NOTE | 2023-05-06 13:20 | EKG ---
Test Date: 2023-05-05 Test Time: 18:26:01 Yoke Setter: ZORAIDA MEASUREMENT RESULTS: Intervals: Rate: 57 MA: 194 QRSD: 110 QT: 354 QTc: 344 [place]: P: 74 MA: 194 QRS: 2 T: 80 INTERPRETIVE STATEMENTS: Sinus bradycardia Otherwise normal ECG Compared to ECG 12/26/2022 10:40:37 Sinus rhythm no longer present T-wave abnormality no longer present Electronically Signed On 05-06-23 13:18:36 BOTTOM PAINTER by Anant Salinas
--- NOTE | 2023-05-06 13:28 | P.PN ---
Subjective Date of Service: 05/06/23 Chief Complaint: acute on chronic CKD, Covid Patient is nonverbal and not able to give any subjective complaint. His blood pressure readings have improved. No recorded fever. Physical Examination - Vital Signs Temperature: 98.1 F Blood Pressure: 108/68 Pulse: 61 Respirations: 18 Pulse Ox (%): 94 - Physical Exam General: Other (Awake, nonverbal) HEENT: Mucous membr. moist/pink Neck: Supple, JVD not distended Respiratory: Clear to auscultation bilaterally, Normal air movement Cardiovascular: No edema, Regular rate/rhythm, Normal S1 S2 Gastrointestinal: Normal bowel sounds, Soft and benign, Non-distended, No tenderness Musculoskeletal: No swelling Integumentary: No rashes, No cyanosis Neurological: Other (Nonverbal) - Studies Laboratory Data (last 24 hrs) 05/05/23 05/05/23 05/05/23 19:12 19:12 18:35 WBC 5.70 Hgb 12.2 L Hct 37.7 L Plt Count 270 PT 12.8 H INR 1.17 APTT 28.8 Sodium 147 H Potassium 4.2 BUN 56 H Creatinine 2.61 H Glucose 105 Total Bilirubin 0.3 AST 128 H ALT 37 Alkaline Phosphatase 88 Assessment And Plan - Current Problems (Diagnosis) (1) Hypotension due to drugs Current Visit: Yes Status: Acute (2) Acute kidney injury Current Visit: Yes Status: Acute (3) Essential hypertension Current Visit: Yes Status: Acute (4) Schizoaffective disorder Current Visit: Yes Status: Acute (5) Parkinsons disease Current Visit: Yes Status: Acute - Plan Blood pressure has improved. Continue to hold antihypertensives Serum creatinine has improved with IV hydration. Baseline creatinine is 1.2- 1.4. Patient was on meloxicam and Lasix which contributed to the ONOFRE. These medications are on hold. Continue to monitor renal function. Follow blood cultures. Increase activity as tolerated. Continue neuroleptics, benztropine and antianxiety medications
[2023-05-06] MEDS ORDERED: POLYETHYL GLY 3350 17 GM/DOSE PO PRN (13:31)
[2023-05-06] MEDS: DOCUSATE NA 100 MG CAP PO SCH ×2 (14:00→21:12)
[2023-05-06] MEDS: BUSPIRONE HCL 15 MG TABLET PO SCH ×2 (15:12→21:14)
[2023-05-06] MEDS: MEMANTINE HCL 10 MG TABLET PO SCH ×2 (15:12→21:12)
[2023-05-06] MEDS: LORATADINE 10 MG TAB PO SCH (15:12)
[2023-05-06] MEDS ORDERED: ATORVASTATIN 10 MG TAB PO SCH (21:00)
[2023-05-06] MEDS ORDERED: RISPERIDONE 3 MG PO SCH (21:00)
[2023-05-06] MEDS ORDERED: BENZTROPINE 1 MG TAB PO SCH (21:00)
[2023-05-06] MEDS ORDERED: RISPERIDONE 1 MG TABLET PO SCH (21:00)
[2023-05-06] MEDS ORDERED: TRAZODONE 50 MG TABLET PO SCH (21:00)
[2023-05-06] MEDS ORDERED: DONEPEZIL HCL 23 MG PO SCH (21:00)
[2023-05-07] MEDS: HEPARIN 5000 UNIT/ML 1 ML VIAL SQ SCH ×2 (01:55→10:09)
[2023-05-07 03:16] LABS: Potassium 4.1 mEq/L (3.5-5.1)
[2023-05-07 09:20] VITALS: O2SAT 90
[2023-05-07] MEDS: BUSPIRONE HCL 15 MG TABLET PO SCH (10:09)
[2023-05-07] MEDS: LORATADINE 10 MG TAB PO SCH (10:09)
[2023-05-07] MEDS: DOCUSATE NA 100 MG CAP PO SCH (10:09)
[2023-05-07] MEDS: MEMANTINE HCL 10 MG TABLET PO SCH (10:09)
--- NOTE | 2023-05-07 14:16 | P.DS ---
Admission Date: 05/05/23 Discharge Date: 05/07/23 Reason for Admission: acute on chronic CKD, Covid - Problems (1) Hypotension due to drugs Current Visit: Yes Status: Acute (2) Acute kidney injury Current Visit: Yes Status: Acute (3) Essential hypertension Current Visit: Yes Status: Acute (4) Schizoaffective disorder Current Visit: Yes Status: Acute (5) Parkinsons disease Current Visit: Yes Status: Acute Brief History of Present Illness: 68-year-old gentleman with a history of neuroleptic parkinsonism, schizoaffective disorder transferred from skilled nursing to the emergency department due to hypotension and lethargic. Patient systolic blood pressure noted to be 80 on arrival to the ED. Significant other reports prior history of wide fluctuations in his blood pressure. She also reported patient is usually mute and will talk on occasionally-recommend confirmed by skilled nursing staff. Workup in the ED was unremarkable mild hypernatremia and elevated serum creatinine indicating ONOFRE secondary to dehydration. UA did not show any evidence of UTI and chest x-ray did not show any acute disease. Patient was hospitalized for further management. Hospital Course: Admitted to the medical floor and hydrated with IV fluid Blood pressure has improved with IV hydration. Spouse confirms patient has been experiencing wide fluctuations in blood pressure-sometimes low, sometimes high. I suspect blood pressure fluctuations secondary to autonomic dysfunction related to parkinsonism. Held antihypertensives and recommend short acting antihypertensives like hydralazine on as-needed basis for high BP readings. Serum creatinine has improved with IV hydration to baseline Patient was on meloxicam and Lasix which contributed to the ONOFRE. These medications have been discontinued. Blood cultures yielded no growth. Patient ambulated with therapy Continued neuroleptics, benztropine and antianxiety medications. Overall patient has clinically improved and deemed stable for discharge. Vital Signs/Physical Exam: Temp Pulse Resp BP Pulse Ox 98.5 F 83 17 125/65 95 05/07/23 08:00 05/07/23 08:00 05/07/23 08:00 05/07/23 08:00 05/07/23 08:00 General: In no apparent distress, Other (mute) HEENT: Mucous membr. moist/pink, Sclerae nonicteric Neck: JVD not distended Respiratory: Clear to auscultation bilaterally, Normal air movement Cardiovascular: No edema, Regular rate/rhythm, Normal S1 S2 Gastrointestinal: Normal bowel sounds, Soft and benign, Non-distended, No tenderness Musculoskeletal: No swelling Integumentary: No rashes, No cyanosis Neurological: Normal strength at 5/5 x4 extr Laboratory Data at Discharge: WBC 7.00 thou/uL (4.3-10.9) 05/06/23 02:46 Hgb 11.6 g/dL (13.6-17.9) L 05/06/23 02:46 Hct 34.2 % (39.6-49.0) L 05/06/23 02:46 Plt Count 235 thou/uL (152-406) 05/06/23 02:46 PT 12.8 SECONDS (9.5-12.5) H 05/05/23 19:12 INR 1.17 05/05/23 19:12 APTT 28.8 SECONDS (24.3-36.9) 05/05/23 19:12 Sodium 147 mEq/L (136-145) H 05/07/23 02:55 Potassium 4.1 mEq/L (3.5-5.1) 05/07/23 02:55 BUN 22 mg/dL (7-18) H 05/07/23 02:55 Creatinine 1.29 mg/dL (0.70-1.30) 05/07/23 02:55 Glucose 116 mg/dL (74-106) H 05/07/23 02:55 Phosphorus 2.5 mg/dL (2.5-4.9) 05/06/23 02:46 Magnesium 2.9 mg/dL (1.6-2.4) H 05/06/23 02:46 Total Bilirubin 0.3 mg/dL (0.2-1.0) 05/06/23 02:46 AST 152 U/L (15-37) H 05/06/23 02:46 ALT 38 U/L (16-61) 05/06/23 02:46 Alkaline Phosphatase 81 U/L (45-117) 05/06/23 02:46 Home Medications: Acetaminophen [Tylenol] 650 mg PO Q6HR PRN 05/06/23 Atorvastatin Calcium 10 mg PO BEDTIME 05/06/23 Benztropine Mesylate 1 mg PO BEDTIME 05/06/23 Buspirone HCl 30 mg PO BID 05/06/23 Docusate Sodium 100 mg PO BID 05/06/23 Donepezil HCl 23 mg PO BEDTIME 05/06/23 Furosemide [Lasix*] 20 mg PO DAILY 05/06/23 Loratadine [Claritin*] 10 mg PO DAILY 05/06/23 Mag Hydroxide 8% [Milk Of Magnesia*] 400 mg PO DAILY 05/06/23 Memantine HCl [Namenda*] 10 mg PO BID 05/06/23 Polyethyl Gly 3350 [Glycolax*] 17 gm PO DAILY PRN 05/06/23 Risperidone [Risperidone Odt] 3 mg PO BEDTIME 05/06/23 Trazodone HCl 50 mg PO BEDTIME 05/06/23 Hydralazine [Apresoline*] 25 mg PO TID PRN #30 tab 05/07/23 New Medications: Hydralazine [Apresoline*] 25 mg PO TID PRN #30 tab PRN Reason: SBP>160 Physician Discharge Instructions: 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 Your BP medications have been stopped because you developed hypotension. Please check your BP twice a day. You have been prescribed hydralazine to be given to you on as needed basis for high BP. Diet: AHA Activity: Fall precautions Followup: David Devi MD [Primary Care Provider] - Time spent managing pt's care (in minutes): 32
[2023-05-07 14:20] VITALS: BP 104/64; TEMP 97.2
== END 2023-05-07 16:20 | disposition home or self-care (01) | DRG 682 ==
LOC: ER 18:10 → ERHOLD 21:10 → 2ND 05-06 04:11
PROVIDERS: ADMIT Internal Medicine; ATTEND Internal Medicine
DX: N17.9 Acute kidney failure, unspecified (principal); U07.1 COVID-19; I13.0 Hypertensive heart and chronic kidney disease with heart failure and stage 1 through stage 4 chronic kidney disease, or unspecified chronic kidney disease; E87.0 Hyperosmolality and hypernatremia; E11.22 Type 2 diabetes mellitus with diabetic chronic kidney disease; N18.2 Chronic kidney disease, stage 2 (mild); Z79.4 Long term (current) use of insulin; G30.9 Alzheimer's disease, unspecified; F02.80 Dementia in other diseases classified elsewhere, unspecified severity, without behavioral disturbance, psychotic disturbance, mood disturbance, and anxiety; E78.5 Hyperlipidemia, unspecified; F20.9 Schizophrenia, unspecified; G20.A1 Parkinson's disease without dyskinesia, without mention of fluctuations; Z90.5 Acquired absence of kidney; E86.0 Dehydration; I95.2 Hypotension due to drugs
CPT/HCPCS: 0240U; 36415; 70450; 71045; 80048; 80053; 81001; 82947; 83605; 83735; 84100; 85025; 85610; 85730; 87040; 93005; 94760; 96374; 96375; 97116; 97161; 99285; J1644; J3475; J7030

== ENCOUNTER → 2023-08-19 | Emergency (ER) | payer OTHER ==
[~2023-08-19] MED LIST: CEFTRIAXONE 1000 MG/VIAL ONE; NA CHLORIDE 0.9% 1,000 ML IV SCH; NA CHLORIDE 0.9% 1,000 ML ONE; NA CHLORIDE 0.9% 500 ML ONE
--- OUTSIDE RECORDS SUMMARY | 2023-08-19 09:40 | XMS REPORT | Continuity of Care Document ---
Author Name Unknown Address [address] [place] [address] [facility] Address [address] 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 Name Role Phone DR FACUNDO JOHN Attending Clinician UnavailLESTER Phillips Attending Clinician Unavailable DARLENE Attending Clinician Unavailable SHRUTHI FRIED Attending Clinician Unavailable BRIDGETTE MANDUJANO Attending Clinician UnavailVIRGINIA Abarca Attending Clinician Unavailable CAMERON PADGETT Attending Clinician Unavailable DR FACUNDO JHON Admitting Clinician Unavaildanielle COLON Admitting Clinician Unavailable Payers Payer Name Policy Type Policy Number Effective Date Expirati on Date Source Allergies, Adverse Reactions, Alerts Allergy Name Allergy Type Status Severity Reaction(s) Onset Date Inactive Date Treating Clinician Comments Source No Known Allergie s DA Active U 2019-05 00:00: 00 [facility] No Known Allergie s DA Active U 2019-05 00:00: 00 [facility] No Known Allergie s DA Active Formerly [facility] Vital Signs Vital Name Observation Time Observation Value Comments S ource Weight 2020-04-15 07:00:00 65.13 KG Weight 2020-04-08 10:33:00 65.58 KG Weight 2020-04-08 09:57:00 65.31 KG Height 2020-04-03 09:34:00 175.26 CM Encounters Start Date/Time End Date/Time Encounter Type Admission Type Attending Clinicians Care Facility Care Department Encounter ID Source 2020-04-03 13:14:00 Inpatient FACUNDO PERALTA [facility] SCU [id number] [facility] 2020-03-18 11:43:00 Inpatient HCAWU TAWANNA [id number] [facility] 2023-03-29 08:33:00 2023-03-29 08:33:00 Outpatient BELÉN ANGELALESTER MERRILL [facility] [id number] [facility] 2021-06-04 12:18:00 2021-06-04 12:18:00 [facility] [id number] [facility] Program 2020-03-08 14:24:00 2020-03-08 18:10:00 Emergency ER SHRUTHI FRIED [facility] [id number] [facility] 2019-11-23 20:37:00 2019-11-23 22:49:00 Emergency ER BRIDGETTE MANUDJANO [facility] [id number] [facility] 2015-04-26 08:07:00 2015-04-26 08:07:00 Outpatient BELÉN SUÁREZ [place] [facility] [id number] [facility] 2010-09-24 07:19:00 2010-09-24 08:30:00 Emergency ER CAMERON PADGETT [facility] [id number] [facility] Results Test Description Test Time Test Comments Results Result Co mments Source GLUCOMETER GLUCOSE- LAB USE [id number] 07:28:00* Test Item Value Reference Range Interpretation Comme nts GLUCOMETER (test code = GMG) 102 mg/dL 70-100 H CLEANED METERMet er ID: [id number]: [id number] JENNIFER VO B12 [id number] 18:26:00* Test Item Value Reference Range Interpretation Comme [facility] VIT B12 (test code = A60) 459.0 pg/mL 180.0-914.0 [id number] 18:26:00* Test Item Value Reference Range Interpretation Comme [facility] FOLATE (test code = A75) 15.0 ng/mL 3.1-17.5 LIPID [id number] 18:26:00* Test Item Value Reference Range Interpretation Comme [facility] CHOLESTROL (test code = 44A) 192 mg/dL 140-200 TRIGLYCERI (test code = 42B) 61 mg/dL <=149 HDL (test code = 83D) 94.0 mg/dL 40.0-60.0 H LDL (test code = 34B) 86 mg/dL <=99 CHL/HDL (test code = CHR) 2.0 0.0-3.4 THYROID PANEL/SCREEN (TSH)2020-04-03 18:22:00* Test Item Value Reference Range Interpretation Comme [facility] TSH (test code = A57) 0.610 uIU/mL 0.358-3.740 [id number] 18:18:00* Test Item Value Reference Range Interpretation Comme [facility] MAGNESIUM (test code = 48A) 2.2 mg/dL 1.8-2.4 [id number] 18:18:00* Test Item Value Reference Range Interpretation Comme [facility] PREALBUMIN (test code = 08E) 34 mg/dL 18-38 [id number] 18:05:00* Test Item Value Reference Range Interpretation Comme [facility] Hb A1C % (test code = HBA) 4.7 % 3.8-6.4 A1C % (test code = A1C) HbA1c (% ) Reference Range Normal <5.7 Prediabetes 5.7-6.4 Diabetic >=6.5 [id number] 11:51:00* Test Item Value Reference Range Interpretation Comme [facility] ACETAMINPH (test code = 94M) <2.0 ug/mL 10.0-30.0 L [id number] 11:49:00* Test Item Value Reference Range Interpretation Comme nts FERRITIN (test code = A19) 521.4 ng/mL 26.0-388.0 H LDH-LACTIC [id number] 11:49:00* Test Item Value Reference Range Interpretation Comme nts LDH (test code = 33A) 241 IU/L 87-241 C-REACTIVE PROTEIN [id number] 11:41:00* Test Item Value Reference Range Interpretation Comme nts CRP QUANT (test code = CRPQ) <2.9 mg/L 0.0-2.9 Method Change (test code = METHOD) Please note the change in Method and the reference range COMPREHENSIVE METABOLIC [id number] 11:41:00* Test Item Value Reference Range Interpretation [...] 0.7-1.3 GFR (test code = GFR) 69 mL/min/1.73m\\S\\2 >=90 L GFR (test code = GFRAA) 80 mL/min/1.73m\\S\\2 >=90 L EGFR (test code = EGFR) [...] (test code = 31A) 36 IU/L <=78 [id number] 11:41:00* Test Item Value Reference Range Interpretation Comme nts SALICYLATE (test code = 94B) <1.7 mg/dL 2.8-20.0 L ALCOHOL BLOOD (ETOH)2020-04-03 11:38:00* Test Item Value Reference Range Interpretation Comme nts ETOH (test code = HALC) ETHANOL * The result is to be used only for medical purposes ALCOHOL (test code = 56A) <10 mg/dL <=10 CARDIAC [id number] 11:37:00* Test Item Value Reference Range Interpretation [...] the FDA and the [employer] (CAP) are more stringent than those required for this test. Therefore, the result should be interpreted with caution and close attention to other clinical and epidemiological data AMMONIA [id number] 11:32:00* Test Item Value Reference Range Interpretation Comme nts AMMONIA (test code = 54A) 18 umol/L 1132 PRO TIME AND [id number] 11:26:00* Test Item Value Reference Range Interpretation [...] or LMW Heparin. Order Code is ANTI-XA [id number] 11:26:00* Test Item Value Reference Range Interpretation Comme nts D-DIMER (test code = DDI) 530 ng/mL D-DU 0-234 H D-DIMER COMMENT (test code = DDCOM) *Level to rule out DVT or PE: <235 ng/mL D-DU* CBC (INCLUDES AUTOMATED DIFFERENTIAL)2020-04-03 11:22:00* Test Item Value Reference Range Interpretation Comme nts WBC (test code = WBC) 4.2 10\\S\\3/uL [...] = RBCMOR) NORMAL - CT HEAD/BRAIN W/O [id number] 14:32:00 [facility] 1955 Sex: M Patient Name: JENNIFER BARTHOLOMEW Unit No: [id number] EXAMS: CPT CODE: [id number] CT HEAD/BRAIN W/O CONT 40311 CT HEAD WITHOUT CONTRAST CLINICAL HISTORY: Psych clearance, psych evaluation COMPARISON: None available. TECHNIQUE: 5 mm axial images of the brain were obtained without contrast. Coronal and sagittal reformats were obtained. One or more of the following dose reduction techniques were used: Auto mated exposure control, adjustment of the mA and/or kV according to patient size, and/or utilization of iterative reconstruction technique. FINDINGS: Moderate cerebral volume loss is noted, predominantly affecting the frontal and temporal lobes. There is compensatory widening of the sulci and ventricles. Moderate periventricular and subcortical white matter low-attenuation changes are nonspecificbut may reflect chronic microvascular ischemic disease. No mass effect or midline shift is seen. There is no acute intracranial hemorrhage. The cranial vault and skull base are intact. The paranasal sinuses and mastoid air cells are pneumatized and well-aerated. IMPRESSION: 1. Moderate cerebral atr ophy, predominantly affecting the frontotemporal lobes. 2. No acute intracranial hemorrhage. 3. Chronic microvascular ischemic disease. Location: R16 Electronically Signed by Katie Babin on03/18/2020 at 1432 Reported and signed by: Tom Babin M.D. CC: Dustin Womack MD Technologist: Venkatesh West, RT(R); Vinnie CTDI: DLP: Trnscrpt: 03/18/2020 (1432) t.[email or web address] [facility] NAME: JENNIFER BARTHOLOMEW PHYS: [place] [address] : 1955 AGE: 64 SEX: M LOC: Z[facility] PHONE #: [phone] EXAM DATE: 03/18/2020 STATUS: REG ER FAX #: [phone] RAD #: D/C DT PAGE 1 Signed Report Patient Name: JENNIFER BARTHOLOMEW Unit No: [id number] EXAMS: CPT CODE: [id number] CT HEAD/BRAIN W/O CONT 37659 (Continued) Orig Print D/T: S:03/18/2020 (1435) [facility] NAME: JENNIFER BARTHOLOMEW PHYS: [place] [address] : 1955 AGE: 64 SEX: M LOC: AKNDY PHONE #: [phone] EXAM DATE: 03/18/2020 STATUS: PRATIBHA ER FAX #: [phone] RAD #: D/C DT PAGE 2 Signed ReportCOVID 19 Asymptomatic IH [id number] 13:50:00* Test Item Value Reference Range Interpretation Comme nts COVID 19 Asymptomatic IH AG (test code = COVNONPUIAG) NEGATIVE Negative "Negative result s from patients with symptom onset beyondfive days, should be treated as presumptive, andconfirmation with a molecular assay, if necessary forpatient management may be performed. Negative results do notrule out COVID-19 and should not be used as the sole basisfor treatment or patient management decisions, includinginfection control decisions. Negative results should beconsidered in the context of a patients recent exposures,history, and the presence of clinical signs and symptomsconsistent with COVID-19.This test detects both viable andnon-viable SARS-CoV and SARS CoV-2.Test performance dependson the amount of virus (antigen) in the sample." BASIC METABOLIC [id number] 13:40:00* Test Item Value Reference Range Interpretation Comme nts SODIUM (test code = NA) 142 MMOL/L 137-145 N POTASSIUM (test code = K) 4.4 MMOL/L 3.5-5.1 N CHLORIDE (test code = CL) 104 MMOL/L 98-107 N CARBON DIOXIDE (test code = CO2) 28 MMOL/L 22-30 N GLUCOSE (test code = GLU) 82 MG/DL 74-106 N BLOOD UREA NITROGEN (test code = BUN) 12 MG/DL 9-20 N GLOMERULAR FILTRATION RATE (test code = GFR) > 60 Reporting units: ml/min/1.73 m2 (Modified MDRD Formula)Reference Range: > or = 60 ml/min/1.73 m2 CREATININE (test code = CREAT) 1.10 MG/DL 0.66-1.25 N CALCIUM (test code = CA) 9.7 MG/DL 8.4-10.2 N HEPATIC FUNCTION [id number] 13:40:00* Test Item Value Reference Range Interpretation Comme nts TOTAL PROTEIN (test code = PROT) 8.2 G/DL 6.2-7.6 H ALBUMIN (test code = ALB) 4.6 G/DL 3.5-5.0 N BILIRUBIN TOTAL (test code = BILT) 0.5 MG/DL 0.2-1.3 N Eltrombopag Interference for Vitros Product TBil, BuBc: A ssay Eltrombopag Analyte/ Max Observed Avg. Bias Concentration Concentration Concentration========= =======TBil 7mg/dl TBil/ 1.2mg/dl +0.23mg.dl +0.20mg/dlBuBc 3.5mg/dl Bu/0.8mg/dl +0.25mg/dl +0.24mg/dlBuBc 7 mg/dl Bu/14.2mg/dl +0.38mg/dl +0.25mg/dlBuBc 5mg/dl Bc/0mg/dl +0.25mg/dl +0.15mg/dlBuBc 3.5mg/dl Bc/2.8mg/dl +0.25mg/dl +0.23mg/dl BILIRUBIN DIRECT (test code = BILD) 0.0 MG/DL 0.0-0.3 N Eltrombopag Interference for Vitros Product TBil, BuBc: A ssay Eltrombopag Analyte/ Max Observed Avg. Bias Concentration Concentration Concentration========= =======TBil 7mg/dl TBil/ 1.2mg/dl +0.23mg.dl +0.20mg/dlBuBc 3.5mg/dl Bu/0.8mg/dl +0.25mg/dl +0.24mg/dlBuBc 7 mg/dl Bu/14.2mg/dl +0.38mg/dl +0.25mg/dlBuBc 5mg/dl Bc/0mg/dl +0.25mg/dl +0.15mg/dlBuBc 3.5mg/dl Bc/2.8mg/dl +0.25mg/dl +0.23mg/dl SGOT/AST (test code = AST) 33 UNITS/L 17-59 N SGPT/ALT (test code = ALT) 29 UNITS/L <50 ALKALINE PHOSPHATASE (test code = ALKP) 78 UNITS/L 38-126 N [id number] 13:40:00* Test Item Value Reference Range Interpretation Comme nts TROPONIN-I (test code = TROPI) 0.013 NG/ML 0.012-0.033 N [id number] 13:40:00* Test Item Value Reference Range Interpretation Comme nts ACETAMINOPHEN (test code = ACET) < 10.0 MCG/ML 10-30 L [id number] 13:40:00* Test Item Value Reference Range Interpretation Comme nts SALICYLATE (test code = ROBER) < 1.0 MG/DL <2.0 [id number] 13:40:00* Test Item Value Reference Range Interpretation Comme nts ALCOHOL (test code = ALC) < 10.0 MG/DL <10 BASIC METABOLIC [id number] 13:30:00* Test Item Value Reference Range Interpretation Comme nts SODIUM (test code = NA) 142 MMOL/L 137-145 N POTASSIUM (test code = K) 4.4 MMOL/L 3.5-5.1 N CHLORIDE (test code = CL) 104 MMOL/L 98-107 N CARBON DIOXIDE (test code = CO2) 28 MMOL/L 22-30 N GLUCOSE (test code = GLU) 82 MG/DL 74-106 N BLOOD UREA NITROGEN (test code = BUN) 12 MG/DL 9-20 N GLOMERULAR FILTRATION RATE (test code = GFR) > 60 Reporting units: ml/min/1.73 m2 (Modified MDRD Formula)Reference Range: > or = 60 ml/min/1.73 m2 CREATININE (test code = CREAT) 1.10 MG/DL 0.66-1.25 N CALCIUM (test code = CA) 9.7 MG/DL 8.4-10.2 N HEPATIC FUNCTION [id number] 13:30:00* Test Item Value Reference Range Interpretation Comme nts TOTAL PROTEIN (test code = PROT) 8.2 G/DL 6.2-7.6 H ALBUMIN (test code = ALB) 4.6 G/DL 3.5-5.0 N BILIRUBIN TOTAL (test code = BILT) 0.5 MG/DL 0.2-1.3 N Eltrombopag Interference for Vitros Product TBil, BuBc: A ssay Eltrombopag Analyte/ Max Observed Avg. Bias Concentration Concentration Concentration========= =======TBil 7mg/dl TBil/ 1.2mg/dl +0.23mg.dl +0.20mg/dlBuBc 3.5mg/dl Bu/0.8mg/dl +0.25mg/dl +0.24mg/dlBuBc 7 mg/dl Bu/14.2mg/dl +0.38mg/dl +0.25mg/dlBuBc 5mg/dl Bc/0mg/dl +0.25mg/dl +0.15mg/dlBuBc 3.5mg/dl Bc/2.8mg/dl +0.25mg/dl +0.23mg/dl BILIRUBIN DIRECT (test code = BILD) 0.0 MG/DL 0.0-0.3 N Eltrombopag Interference for Vitros Product TBil, BuBc: A ssay Eltrombopag Analyte/ Max Observed Avg. Bias Concentration Concentration Concentration========= =======TBil 7mg/dl TBil/ 1.2mg/dl +0.23mg.dl +0.20mg/dlBuBc 3.5mg/dl Bu/0.8mg/dl +0.25mg/dl +0.24mg/dlBuBc 7 mg/dl Bu/14.2mg/dl +0.38mg/dl +0.25mg/dlBuBc 5mg/dl Bc/0mg/dl +0.25mg/dl +0.15mg/dlBuBc 3.5mg/dl Bc/2.8mg/dl +0.25mg/dl +0.23mg/dl SGOT/AST (test code = AST) 33 UNITS/L 17-59 N SGPT/ALT (test code = ALT) 29 UNITS/L <50 ALKALINE PHOSPHATASE (test code = ALKP) 78 UNITS/L 38-126 N [id number] 13:30:00* Test Item Value Reference Range Interpretation Comme nts TROPONIN-I (test code = TROPI) NG/ML 0.0-0.045 [id number] 13:30:00* Test Item Value Reference Range Interpretation Comme nts ACETAMINOPHEN (test code = ACET) < 10.0 MCG/ML 10-30 L [id number] 13:30:00* Test Item Value Reference Range Interpretation Comme nts SALICYLATE (test code = ROBER) < 1.0 MG/DL <2.0 [id number] 13:30:00* Test Item Value Reference Range Interpretation Comme nts ALCOHOL (test code = ALC) < 10.0 MG/DL <10 URINALYSIS [id number] 13:29:00* Test Item Value Reference Range Interpretation Comme nts UA COLOR (test code = COLU) YELLOW YELLOW UA APPEARANCE (test code = APPU) CLEAR CLEAR UA GLUCOSE DIPSTICK (test code = DGLUU) NORMAL MG/DL NORMAL UA BILIRUBIN DIPSTICK (test code = BILU) NEGATIVE MG/DL NEGATIVE UA KETONE DIPSTICK (test code = KETU) NEGATIVE MG/DL NEGATIVE UA SPECIFIC GRAVITY (test code = SGU) 1.015 1.003-1.030 N UA BLOOD DIPSTICK (test code = POOL) NEGATIVE Matt/mm3 NEGATIVE UA PH DIPSTICK (test code = ARLIN) 8.0 5.0-9.0 N UA PROTEIN DIPSTICK (test code = PROU) NEGATIVE MG/DL NEGATIVE UA UROBILINIOGEN DIPSTICK (test code = URO) NORMAL MG/DL NORMAL UA NITRITE DIPSTICK (test code = JUNIOR) NEGATIVE NEGATIVE UA LEUKOCYTE ESTERASE DIPSTICK (test code = LEUU) NEGATIVE /mm3 NEGATIVE UA CULTURE NEEDED? (test code = UACULT) NEGATIVE, NO CULTURE Criteria Culture Chk SOURCE OF URINE: CLEAN CATCHDRUGS OF ABUSE SCREEN [id number] 13:29:00* Test Item Value Reference Range Interpretation Comme nts UR COCAINE (test code = COCAU) NEGATIVE NEGATIVE Cut off Value: 3 00 ng/mL UR CANNABINOIDS (THC) (test code = CANU) NEGATIVE NEGATIVE Cut off Value : 50 ng/mL UR AMPHETAMINE (test code = AMPHU) NEGATIVE NEGATIVE Cut off Value: 1 000 ng/mL UR BARBITURATE QUAL (test code = BARBQLU) NEGATIVE NEGATIVE Cut off Value: 2 00 ng/mL UR BENZODIAZEPINE (test code = BENZU) NEGATIVE NEGATIVE Cut off Value: 2 00 ng/mL UR OPIATES QUAL (test code = OPIAQLU) NEGATIVE NEGATIVE Cut off Value: 3 00 ng/mL UR PHENCYCLIDINE (PCP) (test code = PHENCU) NEGATIVE NEGATIVE Cut off Naomi ue: 25 ng/mL SOURCE OF URINE: CLEAN CATCHBASIC METABOLIC [id number] 13:29:00* Test Item Value Reference Range Interpretation Comme nts SODIUM (test code = NA) 142 MMOL/L 137-145 N POTASSIUM (test code = K) 4.4 MMOL/L 3.5-5.1 N CHLORIDE (test code = CL) 104 MMOL/L 98-107 N CARBON DIOXIDE (test code = CO2) 28 MMOL/L 22-30 N GLUCOSE (test code = GLU) 82 MG/DL 74-106 N BLOOD UREA NITROGEN (test code = BUN) 12 MG/DL 9-20 N GLOMERULAR FILTRATION RATE (test code = GFR) > 60 Reporting units: ml/min/1.73 m2 (Modified MDRD Formula)Reference Range: > or = 60 ml/min/1.73 m2 CREATININE (test code = CREAT) 1.10 MG/DL 0.66-1.25 N CALCIUM (test code = CA) 9.7 MG/DL 8.4-10.2 N HEPATIC FUNCTION [id number] 13:29:00* Test Item Value Reference Range Interpretation Comme nts TOTAL PROTEIN (test code = PROT) 8.2 G/DL 6.2-7.6 H ALBUMIN (test code = ALB) 4.6 G/DL 3.5-5.0 N BILIRUBIN TOTAL (test code = BILT) 0.5 MG/DL 0.2-1.3 N Eltrombopag Interference for Vitros Product TBil, BuBc: A ssay Eltrombopag Analyte/ Max Observed Avg. Bias Concentration Concentration Concentration========= =======TBil 7mg/dl TBil/ 1.2mg/dl +0.23mg.dl +0.20mg/dlBuBc 3.5mg/dl Bu/0.8mg/dl +0.25mg/dl +0.24mg/dlBuBc 7 mg/dl Bu/14.2mg/dl +0.38mg/dl +0.25mg/dlBuBc 5mg/dl Bc/0mg/dl +0.25mg/dl +0.15mg/dlBuBc 3.5mg/dl Bc/2.8mg/dl +0.25mg/dl +0.23mg/dl BILIRUBIN DIRECT (test code = BILD) 0.0 MG/DL 0.0-0.3 N Eltrombopag Interference for Vitros Product TBil, BuBc: A ssay Eltrombopag Analyte/ Max Observed Avg. Bias Concentration Concentration Concentration========= =======TBil 7mg/dl TBil/ 1.2mg/dl +0.23mg.dl +0.20mg/dlBuBc 3.5mg/dl Bu/0.8mg/dl +0.25mg/dl +0.24mg/dlBuBc 7 mg/dl Bu/14.2mg/dl +0.38mg/dl +0.25mg/dlBuBc 5mg/dl Bc/0mg/dl +0.25mg/dl +0.15mg/dlBuBc 3.5mg/dl Bc/2.8mg/dl +0.25mg/dl +0.23mg/dl SGOT/AST (test code = AST) 33 UNITS/L 17-59 N SGPT/ALT (test code = ALT) 29 UNITS/L <50 ALKALINE PHOSPHATASE (test code = ALKP) 78 UNITS/L 38-126 N [id number] 13:29:00* Test Item Value Reference Range Interpretation Comme nts TROPONIN-I (test code = TROPI) NG/ML 0.0-0.045 [id number] 13:29:00* Test Item Value Reference Range Interpretation Comme nts ACETAMINOPHEN (test code = ACET) < 10.0 MCG/ML 10-30 L [id number] 13:29:00* Test Item Value Reference Range Interpretation Comme nts SALICYLATE (test code = ROBER) < 1.0 MG/DL <2.0 [id number] 13:29:00* Test Item Value Reference Range Interpretation Comme nts ALCOHOL (test code = ALC) MG/DL <10 BASIC METABOLIC [id number] 13:28:00* Test Item Value Reference Range Interpretation Comme nts SODIUM (test code = NA) 142 MMOL/L 137-145 N POTASSIUM (test code = K) 4.4 MMOL/L 3.5-5.1 N CHLORIDE (test code = CL) 104 MMOL/L 98-107 N CARBON DIOXIDE (test code = CO2) 28 MMOL/L 22-30 N GLUCOSE (test code = GLU) MG/DL 74-106 BLOOD UREA NITROGEN (test code = BUN) MG/DL 9-20 GLOMERULAR FILTRATION RATE (test code = GFR) > 60 Reporting units: ml/min/1.73 m2 (Modified MDRD Formula)Reference Range: > or = 60 ml/min/1.73 m2 CREATININE (test code = CREAT) 1.10 MG/DL 0.66-1.25 N CALCIUM (test code = CA) MG/DL 8.7-9.7 HEPATIC FUNCTION [id number] 13:28:00* Test Item Value Reference Range Interpretation Comme nts TOTAL PROTEIN (test code = PROT) G/DL 6.2-7.6 ALBUMIN (test code = ALB) 4.6 G/DL 3.5-5.0 N BILIRUBIN TOTAL (test code = BILT) 0.5 MG/DL 0.2-1.3 N Eltrombopag Interference for Vitros Product TBil, BuBc: Assa y Eltrombopag Analyte/ Max Observed Avg. Bias Concentration Concentration Concentration ====TBil 7mg/dl TBil/ 1.2mg/dl +0.23mg.dl +0.20mg/dlBuBc 3.5mg/dl Bu/0.8mg/dl +0.25mg/dl +0.24mg/dlBuBc 7 mg/dl Bu/14.2mg/dl +0.38mg/dl +0.25mg/dlBuBc 5mg/dl Bc/0mg/dl +0.25mg/dl +0.15mg/dlBuBc 3.5mg/dl Bc/2.8mg/dl +0.25mg/dl +0.23mg/dl BILIRUBIN DIRECT (test code = BILD) 0.0 MG/DL 0.0-0.3 N Eltrombopag Interference for Vitros Product TBil, BuBc: Assa y Eltrombopag Analyte/ Max Observed Avg. Bias Concentration Concentration Concentration ====TBil 7mg/dl TBil/ 1.2mg/dl +0.23mg.dl +0.20mg/dlBuBc 3.5mg/dl Bu/0.8mg/dl +0.25mg/dl +0.24mg/dlBuBc 7 mg/dl Bu/14.2mg/dl +0.38mg/dl +0.25mg/dlBuBc 5mg/dl Bc/0mg/dl +0.25mg/dl +0.15mg/dlBuBc 3.5mg/dl Bc/2.8mg/dl +0.25mg/dl +0.23mg/dl SGOT/AST (test code = AST) UNITS/L 15-37 SGPT/ALT (test code = ALT) UNITS/L <50 ALKALINE PHOSPHATASE (test code = ALKP) UNITS/L 38-126 [id number] 13:28:00* Test Item Value Reference Range Interpretation Comme nts TROPONIN-I (test code = TROPI) NG/ML 0.0-0.045 [id number] 13:28:00* Test Item Value Reference Range Interpretation Comme nts ACETAMINOPHEN (test code = ACET) MCG/ML 10-30 [id number] 13:28:00* Test Item Value Reference Range Interpretation Comme nts SALICYLATE (test code = ROBER) MG/DL <2.0 [id number] 13:28:00* Test Item Value Reference Range Interpretation Comme nts ALCOHOL (test code = ALC) MG/DL <10 URINALYSIS [id number] 13:28:00* Test Item Value Reference Range Interpretation Comme nts UA COLOR (test code = COLU) YELLOW YELLOW UA APPEARANCE (test code = APPU) CLEAR CLEAR UA GLUCOSE DIPSTICK (test code = DGLUU) NORMAL MG/DL NORMAL UA BILIRUBIN DIPSTICK (test code = BILU) NEGATIVE MG/DL NEGATIVE UA KETONE DIPSTICK (test code = KETU) NEGATIVE MG/DL NEGATIVE UA SPECIFIC GRAVITY (test code = SGU) 1.015 1.003-1.030 N UA BLOOD DIPSTICK (test code = POOL) NEGATIVE Matt/mm3 NEGATIVE UA PH DIPSTICK (test code = ARLIN) 8.0 5.0-9.0 N UA PROTEIN DIPSTICK (test code = PROU) NEGATIVE MG/DL NEGATIVE UA UROBILINIOGEN DIPSTICK (test code = URO) NORMAL MG/DL NORMAL UA NITRITE DIPSTICK (test code = JUNIOR) NEGATIVE NEGATIVE UA LEUKOCYTE ESTERASE DIPSTICK (test code = LEUU) NEGATIVE /mm3 NEGATIVE UA CULTURE NEEDED? (test code = UACULT) NEGATIVE, NO CULTURE Criteria Culture Chk SOURCE OF URINE: CLEAN CATCHDRUGS OF ABUSE SCREEN [id number] 13:28:00* Test Item Value Reference Range Interpretation Comme nts UR COCAINE (test code = COCAU) NEGATIVE NEGATIVE Cut off Value: 3 00 ng/mL UR CANNABINOIDS (THC) (test code = CANU) NEGATIVE NEGATIVE Cut off Value : 50 ng/mL UR AMPHETAMINE (test code = AMPHU) NEGATIVE NEGATIVE Cut off Value: 1 000 ng/mL UR BARBITURATE QUAL (test code = BARBQLU) NEGATIVE NEGATIVE Cut off Value: 2 00 ng/mL UR BENZODIAZEPINE (test code = BENZU) NEGATIVE NEGATIVE Cut off Value: 2 00 ng/mL UR OPIATES QUAL (test code = OPIAQLU) NEGATIVE NEGATIVE Cut off Value: 3 00 ng/mL UR PHENCYCLIDINE (PCP) (test code = PHENCU) NEGATIVE SOURCE OF URINE: CLEAN CATCHURINALYSIS [id number] 13:27:00* Test Item Value Reference Range Interpretation Comme nts UA COLOR (test code = COLU) YELLOW YELLOW UA APPEARANCE (test code = APPU) CLEAR CLEAR UA GLUCOSE DIPSTICK (test code = DGLUU) NORMAL MG/DL NORMAL UA BILIRUBIN DIPSTICK (test code = BILU) NEGATIVE MG/DL NEGATIVE UA KETONE DIPSTICK (test code = KETU) NEGATIVE MG/DL NEGATIVE UA SPECIFIC GRAVITY (test code = SGU) 1.015 1.003-1.030 N UA BLOOD DIPSTICK (test code = POOL) NEGATIVE Matt/mm3 NEGATIVE UA PH DIPSTICK (test code = ARLIN) 8.0 5.0-9.0 N UA PROTEIN DIPSTICK (test code = PROU) NEGATIVE MG/DL NEGATIVE UA UROBILINIOGEN DIPSTICK (test code = URO) NORMAL MG/DL NORMAL UA NITRITE DIPSTICK (test code = JUNIOR) NEGATIVE NEGATIVE UA LEUKOCYTE ESTERASE DIPSTICK (test code = LEUU) NEGATIVE /mm3 NEGATIVE UA CULTURE NEEDED? (test code = UACULT) NEGATIVE, NO CULTURE Criteria Culture Chk SOURCE OF URINE: CLEAN CATCHDRUGS OF ABUSE SCREEN [id number] 13:27:00* Test Item Value Reference Range Interpretation Comme nts UR COCAINE (test code = COCAU) NEGATIVE NEGATIVE Cut off Value: 3 00 ng/mL UR CANNABINOIDS (THC) (test code = CANU) NEGATIVE UR AMPHETAMINE (test code = AMPHU) NEGATIVE NEGATIVE Cut off Value: 1 000 ng/mL UR BARBITURATE QUAL (test code = BARBQLU) NEGATIVE NEGATIVE Cut off Value: 2 00 ng/mL UR BENZODIAZEPINE (test code = BENZU) NEGATIVE NEGATIVE Cut off Value: 2 00 ng/mL UR OPIATES QUAL (test code = OPIAQLU) NEGATIVE UR PHENCYCLIDINE (PCP) (test code = PHENCU) NEGATIVE SOURCE OF URINE: CLEAN CATCHBASIC METABOLIC [id number] 13:26:00* Test Item Value Reference Range Interpretation Comme nts SODIUM (test code = NA) 142 MMOL/L 137-145 N POTASSIUM (test code = K) 4.4 MMOL/L 3.5-5.1 N CHLORIDE (test code = CL) 104 MMOL/L 98-107 N CARBON DIOXIDE (test code = CO2) MMOL/L 22-30 GLUCOSE (test code = GLU) MG/DL 74-106 BLOOD UREA NITROGEN (test co de = BUN) MG/DL 9-20 GLOMERULAR FILTRATION RATE ( test code = GFR) CREATININE (test code = CREAT) MG/DL 0.66-1.25 CALCIUM (test code = CA) MG/DL 8.7-9.7 HEPATIC FUNCTION [id number] 13:26:00* Test Item Value Reference Range Interpretation Comme nts TOTAL PROTEIN (test code = PROT) G/DL 6.2-7.6 ALBUMIN (test code = ALB) 4.6 G/DL 3.5-5.0 N BILIRUBIN TOTAL (test code = BILT) MG/DL 0.2-1.3 BILIRUBIN DIRECT (test code = BILD) MG/DL 0.0-0.3 SGOT/AST (test code = AST) UNITS/L 15-37 SGPT/ALT (test code = ALT) UNITS/L <50 ALKALINE PHOSPHATASE (test c ode = ALKP) UNITS/L 38-126 [id number] 13:26:00* Test Item Value Reference Range Interpretation Comme nts TROPONIN-I (test code = TROPI) NG/ML 0.0-0.045 [id number] 13:26:00* Test Item Value Reference Range Interpretation Comme nts ACETAMINOPHEN (test code = ACET) MCG/ML 10-30 [id number] 13:26:00* Test Item Value Reference Range Interpretation Comme nts SALICYLATE (test code = ROBER) MG/DL <2.0 [id number] 13:26:00* Test Item Value Reference Range Interpretation Comme nts ALCOHOL (test code = ALC) MG/DL <10 URINALYSIS [id number] 13:26:00* Test Item Value Reference Range Interpretation Comme nts UA COLOR (test code = COLU) YELLOW YELLOW UA APPEARANCE (test code = APPU) CLEAR CLEAR UA GLUCOSE DIPSTICK (test code = DGLUU) NORMAL MG/DL NORMAL UA BILIRUBIN DIPSTICK (test code = BILU) NEGATIVE MG/DL NEGATIVE UA KETONE DIPSTICK (test code = KETU) NEGATIVE MG/DL NEGATIVE UA SPECIFIC GRAVITY (test code = SGU) 1.015 1.003-1.030 N UA BLOOD DIPSTICK (test code = POOL) NEGATIVE Matt/mm3 NEGATIVE UA PH DIPSTICK (test code = ARLIN) 8.0 5.0-9.0 N UA PROTEIN DIPSTICK (test code = PROU) NEGATIVE MG/DL NEGATIVE UA UROBILINIOGEN DIPSTICK (test code = URO) NORMAL MG/DL NORMAL UA NITRITE DIPSTICK (test code = JUNIOR) NEGATIVE NEGATIVE UA LEUKOCYTE ESTERASE DIPSTICK (test code = LEUU) NEGATIVE /mm3 NEGATIVE UA CULTURE NEEDED? (test code = UACULT) NEGATIVE, NO CULTURE Criteria Culture Chk SOURCE OF URINE: CLEAN CATCHDRUGS OF ABUSE SCREEN [id number] 13:26:00* Test Item Value Reference Range Interpretation Comme nts UR COCAINE (test code = COCAU) NEGATIVE UR CANNABINOIDS (THC) (test code = CANU) NEGATIVE UR AMPHETAMINE (test code = AMPHU) NEGATIVE NEGATIVE Cut off Value: 1 000 ng/mL UR BARBITURATE QUAL (test code = BARBQLU) NEGATIVE NEGATIVE Cut off Value: 2 00 ng/mL UR BENZODIAZEPINE (test code = BENZU) NEGATIVE UR OPIATES QUAL (test code = OPIAQLU) NEGATIVE UR PHENCYCLIDINE (PCP) (test code = PHENCU) NEGATIVE SOURCE OF URINE: CLEAN CATCHDRUGS OF ABUSE SCREEN [id number] 13:25:00* Test Item Value Reference Range Interpretation Comme nts UR COCAINE (test code = COCAU) NEGATIVE UR CANNABINOIDS (THC) (test code = CANU) NEGATIVE UR AMPHETAMINE (test code = AMPHU) NEGATIVE NEGATIVE Cut off Value: 1 000 ng/mL UR BARBITURATE QUAL (test code = BARBQLU) NEGATIVE UR BENZODIAZEPINE (test code = BENZU) NEGATIVE UR OPIATES QUAL (test code = OPIAQLU) NEGATIVE UR PHENCYCLIDINE (PCP) (test code = PHENCU) NEGATIVE SOURCE OF URINE: CLEAN CATCHBASIC METABOLIC [id number] 13:25:00* Test Item Value Reference Range Interpretation Comme nts SODIUM (test code = NA) MMOL/L 137-145 POTASSIUM (test code = K) MMOL/L 3.5-5.1 CHLORIDE (test code = CL) MMOL/L 98-107 CARBON DIOXIDE (test code = CO2) MMOL/L 22-30 GLUCOSE (test code = GLU) MG/DL 74-106 BLOOD UREA NITROGEN (test code = BUN) MG/DL 9-20 GLOMERULAR FILTRATION RATE ( test code = GFR) CREATININE (test code = CREAT) MG/DL 0.66-1.25 CALCIUM (test code = CA) MG/DL 8.7-9.7 HEPATIC FUNCTION [id number] 13:25:00* Test Item Value Reference Range Interpretation Comme nts TOTAL PROTEIN (test code = PROT) G/DL 6.2-7.6 ALBUMIN (test code = ALB) 4.6 G/DL 3.5-5.0 N BILIRUBIN TOTAL (test code = BILT) MG/DL 0.2-1.3 BILIRUBIN DIRECT (test code = BILD) MG/DL 0.0-0.3 SGOT/AST (test code = AST) UNITS/L 15-37 SGPT/ALT (test code = ALT) UNITS/L <50 ALKALINE PHOSPHATASE (test c ode = ALKP) UNITS/L 38-126 [id number] 13:25:00* Test Item Value Reference Range Interpretation Comme nts TROPONIN-I (test code = TROPI) NG/ML 0.0-0.045 [id number] 13:25:00* Test Item Value Reference Range Interpretation Comme nts ACETAMINOPHEN (test code = ACET) MCG/ML 10-30 [id number] 13:25:00* Test Item Value Reference Range Interpretation Comme nts SALICYLATE (test code = ROBER) MG/DL <2.0 [id number] 13:25:00* Test Item Value Reference Range Interpretation Comme nts ALCOHOL (test code = ALC) MG/DL <10 URINALYSIS [id number] 13:25:00* Test Item Value Reference Range Interpretation Comme nts UA COLOR (test code = COLU) YELLOW YELLOW UA APPEARANCE (test code = APPU) CLEAR CLEAR UA GLUCOSE DIPSTICK (test code = DGLUU) NORMAL MG/DL NORMAL UA BILIRUBIN DIPSTICK (test code = BILU) NEGATIVE MG/DL NEGATIVE UA KETONE DIPSTICK (test code = KETU) NEGATIVE MG/DL NEGATIVE UA SPECIFIC GRAVITY (test code = SGU) 1.015 1.003-1.030 N UA BLOOD DIPSTICK (test code = POOL) NEGATIVE Matt/mm3 NEGATIVE UA PH DIPSTICK (test code = ARLIN) 8.0 5.0-9.0 N UA PROTEIN DIPSTICK (test code = PROU) NEGATIVE MG/DL NEGATIVE UA UROBILINIOGEN DIPSTICK (test code = URO) NORMAL MG/DL NORMAL UA NITRITE DIPSTICK (test code = JUNIOR) NEGATIVE NEGATIVE UA LEUKOCYTE ESTERASE DIPSTICK (test code = LEUU) NEGATIVE /mm3 NEGATIVE UA CULTURE NEEDED? (test code = UACULT) NEGATIVE, NO CULTURE Criteria Culture Chk SOURCE OF URINE: CLEAN CATCHURINALYSIS [id number] 13:04:00* Test Item Value Reference Range Interpretation Comme nts UA COLOR (test code = COLU) YELLOW YELLOW UA APPEARANCE (test code = APPU) CLEAR CLEAR UA GLUCOSE DIPSTICK (test code = DGLUU) NORMAL MG/DL NORMAL UA BILIRUBIN DIPSTICK (test code = BILU) NEGATIVE MG/DL NEGATIVE UA KETONE DIPSTICK (test code = KETU) NEGATIVE MG/DL NEGATIVE UA SPECIFIC GRAVITY (test code = SGU) 1.015 1.003-1.030 N UA BLOOD DIPSTICK (test code = POOL) NEGATIVE Matt/mm3 NEGATIVE UA PH DIPSTICK (test code = ARLIN) 8.0 5.0-9.0 N UA PROTEIN DIPSTICK (test code = PROU) NEGATIVE MG/DL NEGATIVE UA UROBILINIOGEN DIPSTICK (test code = URO) NORMAL MG/DL NORMAL UA NITRITE DIPSTICK (test code = JUNIOR) NEGATIVE NEGATIVE UA LEUKOCYTE ESTERASE DIPSTICK (test code = LEUU) NEGATIVE /mm3 NEGATIVE UA CULTURE NEEDED? (test code = UACULT) NEGATIVE, NO CULTURE Criteria Culture Chk SOURCE OF URINE: CLEAN CATCHDRUGS OF ABUSE SCREEN [id number] 13:04:00* Test Item Value Reference Range Interpretation Comme nts UR COCAINE (test code = COCAU) NEGATIVE UR CANNABINOIDS (THC) (test code = CANU) NEGATIVE UR AMPHETAMINE (test code = AMPHU) NEGATIVE UR BARBITURATE QUAL (test co de = BARBQLU) NEGATIVE UR BENZODIAZEPINE (test code = BENZU) NEGATIVE UR OPIATES QUAL (test code = OPIAQLU) NEGATIVE UR PHENCYCLIDINE (PCP) (test code = PHENCU) NEGATIVE SOURCE OF URINE: CLEAN CATCHURINALYSIS [id number] 13:03:00* Test Item Value Reference Range Interpretation Comme nts UA COLOR (test code = COLU) YELLOW YELLOW UA APPEARANCE (test code = APPU) CLEAR CLEAR UA GLUCOSE DIPSTICK (test code = DGLUU) NORMAL MG/DL NORMAL UA BILIRUBIN DIPSTICK (test code = BILU) NEGATIVE MG/DL NEGATIVE UA KETONE DIPSTICK (test code = KETU) NEGATIVE MG/DL NEGATIVE UA SPECIFIC GRAVITY (test code = SGU) 1.015 1.003-1.030 N UA BLOOD DIPSTICK (test code = POOL) NEGATIVE Matt/mm3 NEGATIVE UA PH DIPSTICK (test code = ARLIN) 8.0 5.0-9.0 N UA PROTEIN DIPSTICK (test code = PROU) NEGATIVE MG/DL NEGATIVE UA UROBILINIOGEN DIPSTICK (test code = URO) NORMAL MG/DL NORMAL UA NITRITE DIPSTICK (test code = JUNIOR) NEGATIVE NEGATIVE UA LEUKOCYTE ESTERASE DIPSTICK (test code = LEUU) NEGATIVE /mm3 NEGATIVE UA CULTURE NEEDED? (test code = UACULT) Criteria Culture Chk SOURCE OF URINE: CLEAN CATCHDRUGS OF ABUSE SCREEN [id number] 13:03:00* Test Item Value Reference Range Interpretation Comme nts UR COCAINE (test code = COCAU) NEGATIVE UR CANNABINOIDS (THC) (test code = CANU) NEGATIVE UR AMPHETAMINE (test code = AMPHU) NEGATIVE UR BARBITURATE QUAL (test co de = BARBQLU) NEGATIVE UR BENZODIAZEPINE (test code = BENZU) NEGATIVE UR OPIATES QUAL (test code = OPIAQLU) NEGATIVE UR PHENCYCLIDINE (PCP) (test code = PHENCU) NEGATIVE SOURCE OF URINE: CLEAN CATCHCBC W/AUTO [id number] 13:02:00* Test Item Value Reference Range Interpretation Comme nts WHITE BLOOD CELL (test code = WBC) 4.0 K/MM3 3.8-9.8 N RED BLOOD CELL (test code = RBC) 4.09 M/MM3 3.95-5.67 N HEMOGLOBIN (test code = HGB) 12.8 G/DL 12.4-16.7 N HEMATOCRIT (test code = HCT) 40.4 % 35.9-49.5 N MEAN CELL VOLUME (test code = MCV) 99 fL 81.7-96.1 H MEAN CELL HGB (test code = MCH) 31.3 pg 27.6-33.2 N MEAN CELL HGB CONCETRATION (test code = MCHC) 31.7 % 32.9-35.5 L RED CELL DISTRIBUTION WIDTH (test code = RDW) 12.2 % 12.1-15.2 N PLATELET COUNT (test code = PLT) 223 K/MM3 129-368 N MEAN PLATELET VOLUME (test c ode = MPV) 9.9 fl 7.4-10.4 N NEUTROPHIL % (test code = NT%) 53.0 % 43-75 N IMMATURE GRANULOCYTE % (test code = IG%) 0.2 % 0.0-2.0 N LYMPHOCYTE % (test code = LY%) 28.7 % 14-44 N MONOCYTE % (test code = MO%) 14.2 % 4-13 H EOSINOPHIL % (test code = EO%) 3.2 % 0-6 N BASOPHIL % (test code = BA%) 0.7 % 0-2 N NUCLEATED RBC % (test code = NRBC%) 0.0 % 0-1.0 N NEUTROPHIL # (test code = NT#) 2.12 K/mm3 2.0-7.6 N IMMATURE GRANULOCYTE # (test code = IG#) 0.01 x10 3/uL 0-0.03 N LYMPHOCYTE # (test code = LY#) 1.15 K/mm3 1.0-3.8 N MONOCYTE # (test code = MO#) 0.57 K/mm3 0.1-0.8 N EOSINOPHIL # (test code = EO#) 0.13 K/mm3 0.0-0.2 N BASOPHIL # (test code = BA#) 0.03 K/mm3 0.0-0.2 N NUCLEATED RBC # (test code = NRBC#) 0.00 K/mm3 0.0-0.1 N Notes Date/Time Note Provider Source 2020-03-20 08:16:00 [id number]:1 6:00 [facility] ([facility])Clinical NoteREPORT#:[id number] REPORT STATUS: SignedDATE:03/20/20 TIME: 08 PATIENT: JENNIFER BARTHOLOMEW UNIT #: [id number]#: [id number] ROOM/BED:: 57 AGE: 64 SEX: M ATTEND: Dustin Womack DT: AUTHOR: Alexa De Leon MD * ALL edits or amendments must be made on the electronic/computer document * Clinical NoteNote:[id number] psych note dictated at 0817 RPT #:[id number] OF REPORTCLClinical [id number]:16:00Z.[id number] able for patient [id number]:17:36 [facility]
--- NOTE | 2023-08-19 10:24 | RAD REPORT ---
EXAM DESCRIPTION: RAD - Chest Single View - 08/19/2023 10:17 am CLINICAL HISTORY: COUGH COMPARISON: Chest Single View dated 05/05/2023; Chest Single View dated 12/26/2022; Chest Single View dated 01/01/2022; Chest Single View dated 11/07/2021 FINDINGS: Lines: None. Lungs: Low lung volumes with diffuse prominence of the pulmonary interstitium. Pleural: No significant pleural effusions or pneumothorax. Cardiac: The heart size is within normal limits. Mediastinum: Within normal limits. Bones: No acute fractures. Other: None IMPRESSION: Low lung volumes with diffuse interstitial prominence. The interstitial prominence could be accentuated by low lung volumes however either mild edema or an atypical infectious process diffi cult to entirely exclude. A CT is pending.
[2023-08-19 10:27] LABS: Absolute Lymphocytes (CBC) 0.6 K/uL (0.7-4.9); Absolute Monocytes 0.3 K/uL (0.1-1.3); Absolute Neutrophil 4.1 K/uL (1.8-8.0); Basophils % 0.7 % (0-1.3); Eosinophils % 0.2 % (0-4.4); Hematocrit 39.8 % (39.6-49.0); Hemoglobin 13.2 g/dL (13.6-17.9); Lymphocytes % 11.9 % (15.3-44.8); MCH 29.8 pg (27.0-35.0); MCV 90.1 fL (80-100); MPV 8.4 fL (7.6-11.3); Monocytes % 5.7 % (3.3-12.3); Neutrophils % 81.5 % (41.7-73.7); Platelets 205 thou/uL (152-406); RBC Red Blood Cell Count 4.42 M/uL (4.33-5.43); Red Cell Distribution Width 12.8 % (12.1-15.2)
[2023-08-19 10:31] LABS: PT Prothrombin Time 12.1 SECONDS (9.5-12.5); Protime INR 1.1
--- NOTE | 2023-08-19 10:42 | RAD REPORT ---
EXAM DESCRIPTION: CT - Head C Spine Cap Wo Con - 08/19/2023 10:26 am CLINICAL HISTORY: Trauma, head and neck injury. Chest, abdomen and pelvis pain. MENTAL STATUS CHANGE COMPARISON: Head C Spine Cap W Con dated 06/22/2021 TECHNIQUE: CT head without contrast. CT cervical spine without contrast with coronal and sagittal reformatted images. CT chest, abdomen and pelvis with coronal and sagittal reformatted images of the spine. All CT scans are performed using dose optimization technique as appropriate and may include automated exposure control or mA/KV adjustment according to patient size. FINDINGS: CT HEAD WITHOUT CONTRAST: No intracranial hemorrhage, hydrocephalus or extra-axial fluid collection. No acute large vascular te rritory infarct. Age advanced cerebral atrophy with particular involvement of the frontal and tempora l lobes. Ventriculomegaly likely related to the pronounced frontal and temporal lobe atrophy. The paranasal sinuses and mastoids are clear. The calvarium is intact. CT CERVICAL SPINE WITHOUT CONTRAST: No fracture or subluxation. The prevertebral soft tissues are normal in thickness.Reversal the normal cervical lordosis which is likely related to underlying degenerative changes. There is osseous fusion across the much of the C5- 6 disc space and partial osseous fusion across C4-5. CT CHEST, ABDOMEN, PELVIS: Thorax: Chest Wall: No abnormal mass Lungs: No acute abnormality. Low lung volumes. Pleura: No effusions or pneumothorax. Charo/Mediastinum: No lymphadenopathy. Aorta/Pulmonary Arteries: Unremarkable Heart: Normal size. Mild coronary calcifications. Abdomen/Pelvis: Liver: No acute abnormality or suspicious lesions. Biliary: No biliary ductal dilatation. Stomach: No significant focal abnormality. Duodenum: No significant focal abnormality. Pancreas: No significant abnormality. Spleen: No significant abnormality. Adrenal: No suspicious lesions. Kidney/ureter: Right nephrectomy. No renal calculi. Retroperitoneum: No retroperitoneal adenopathy. Vascular: No aneurysm. Atherosclerosis. Bowel: No significant focal abnormality. Peritoneum: No ascites or free air. Bladder: Grossly unremarkable. Reproductive: Prostatomegaly with median lobe hypertrophy. Bones: No acute fracture. Other: n/a IMPRESSION: Negative for acute traumatic findings. No acute findings identified. Advanced frontotemporal cerebral atrophy.
[2023-08-19 10:49] LABS: Albumin 3.7 g/dL (3.4-5.0); Albumin/Globulin Ratio 0.8 (1.1-1.8); Anion Gap 8.7 mEq/L (5.0-15.0); Bilirubin Direct 0.1 mg/dL (0-0.2); Bilirubin Indirect, Calculated 0.2 mg/dL (0.2-0.8); Bilirubin Total 0.3 mg/dL (0.2-1.0); Globulin 4.4 g/dL (2.3-3.5); Magnesium 1.9 mg/dL (1.6-2.4); Potassium 3.7 mEq/L (3.5-5.1); Protein, Total 8.1 g/dL (6.4-8.2); Troponin High Sensitivity 10.7 pg/mL (<58.9)
[2023-08-19 11:29] LABS: SARS-CoV-2 Antigen CONTROL BLUE LINE VIS/BG OK; SARS-CoV-2 Antigen Rapid Res Negative (Negative)
--- NOTE | 2023-08-19 13:10 | ER ---
Nurse's Notes [facility] Name: Ron Murray Age: 68 yrs Sex: Male : 1955 Arrival Date: 08/19/2023 Time: 09:37 Bed 17 Private MD: Diagnosis: Weakness;Altered mental status, unspecified;Anorexia;Alzheimer's disease, unspecified Presentation: 08/18 09:41 Chief complaint: EMS states: From alzheimers unit. Staff concerned because he has not nj1 been as mobile or speaking much since yesterday. 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 Has not vocalized anything for them. Coronavirus screen: unable to obtain. Ebola Screen: Patient denies travel to an Ebola-affected area in the 21 days before illness onset. Risk Assessment: Do you want to hurt yourself or someone else? Unable to obtain. Onset of symptoms was August 18, 2023. 09:41 Method Of Arrival: EMS: [facility] 09:41 Acuity: DELILAH 2 kb3 09:45 Care prior to arrival: IV initiated. 20 GA, in the left hand, Glucose check: 245. [facility] 10:00 Initial Sepsis Screen: Does the patient meet any 2 criteria? HR > 90 bpm. No. Patient's [facility] initial sepsis screen is negative. Does the patient have a suspected source of infection? No. Patient's initial sepsis screen is negative. Historical: - Allergies: 09:46 No Known Allergies; nj1 - PMHx: 09:46 Alzheimers; cerebral ischemia; Dementia; DYSPHAGIA; Hyperlipidemia; Hypertension; nj1 muscle weakness; muscle weakness; osteoarthritis; schizoaffective; - Immunization history:: Adult Immunizations unknown. - Infectious Disease History:: unable to obtain. - Social history:: Smoking status: unknown. - Family history:: not pertinent. Screenin:29 [facility] ED Fall Risk Assessment (Adult) History of falling in the last 3 months, [facility] including since admission No falls in past 3 months (0 pts) Confusion or Disorientation Yes (5 pts) Intoxicated or Sedated No (0 pts) Impaired Gait Yes (1 pt) Mobility Assist Device Used Yes (1 pt) Altered Elimination Yes (1 pt) Score/Fall Risk Level 3 or more points = High Risk Oriented to surroundings, Maintained a safe environment, Educated pt \T\ family on fall prevention, incl call for assistance when getting out of bed, Provided non-skid footwear, Hourly rounding (assess needs \T\ fall precautionary measures) done, Used ambulatory aids as needed (educated on \T\ assisted with), Remained w/in arm's length of patient and in sight while toileting, Offered frequent toileting (1:1 observation), Remained with patient while ambulating. Abuse screen: unable to obtain. Nutritional screening: No deficits noted. Tuberculosis screening: No symptoms or risk factors identified. Assessment: 10:00 General: Appears in no apparent distress. comfortable, Behavior is calm, flat. nj1 10:00 Pain: Unable to use pain scale. Does not appear to understand pain scale. Neuro: Level nj1 of Consciousness is awake, Oriented to unable to assess, does not answer to questions, non verbal at this time. Support Technician are equal bilaterally Pupils are PERRLA. Cardiovascular: Patient's skin is warm and dry. Respiratory: Airway is patent Respiratory effort is even, unlabored. 11:11 Reassessment: Patient appears in no apparent distress at this time. No changes from nj1 previously documented assessment. 12:10 Reassessment: Patient appears in no apparent distress at this time. No changes from nj1 previously documented assessment. 13:15 Reassessment: Patient appears in no apparent distress at this time. No changes from nj1 previously documented assessment. 14:15 Reassessment: Patient appears in no apparent distress at this time. No changes from nj1 previously documented assessment. 14:30 Reassessment: Patient's on the phone, Princess Murray, , update nj1 provided. 15:30 Reassessment: Patient appears in no apparent distress at this time. No changes from nj1 previously documented assessment. 16:45 Reassessment: Patient appears in no apparent distress at this time. No changes from nj1 previously documented assessment. 16:50 Reassessment: ETA 90 minutes back to [place]. iw 17:00 Reassessment: Discharge instructions given to this RN by Jayashree Crowell RN, charge nurse. Ok nj1 to go ahead with discharge. 18:24 Reassessment: [facility] here to transport patient back to intermediate. Report nj1 given to Kayla MCKINNON. Discharge paperwork as well as results given to EMS for intermediate staff. 18:29 Reassessment: Patients clothing/shoes put in patients belongings bag and given to nj1 /son. Vital Signs: 10:00 BP 144 / 93; Pulse 108; Resp 18; Temp 97.2(TE); Pulse Ox 97% on R/A; Weight 68.04 kg nj1 (M); 11:11 BP 160 / 96; Pulse 89; Resp 16; Pulse Ox 98% on R/A; nj1 12:10 BP 161 / 91; Pulse 74; Resp 14; Pulse Ox 99% on R/A; nj1 13:15 BP 181 / 94; Pulse 93; Resp 16; Pulse Ox 98% on R/A; nj1 14:15 BP 150 / 94; Pulse 85; Resp 17; Pulse Ox 96% on R/A; nj1 15:30 BP 177 / 92; Pulse 82; Resp 15; Temp 97.4(TE); Pulse Ox 100% ; nj1 16:41 BP 184 / 97; Pulse 85; Resp 16; Pulse Ox 98% on R/A; nj1 Jovita Coma Score: 12:58 Eye Response: spontaneous(4). Motor Response: localizes pain(5). Verbal Response: roosevelt confused(4). Total: 13. ED Course: 09:40 Patient arrived in ED. nj1 09:40 Karel Hilliard MD is Attending Physician. roosevelt 09:46 Triage completed. nj1 09:46 Arm band placed on right wrist. nj1 09:52 Shelley Robins, RN is Primary Nurse. nj1 10:00 Patient has correct armband on for positive identification. Placed in gown. Bed in low [facility] position. Call light in reach. Side rails up X 1. 10:00 Provided Education on: call light, fall precautions. Client placed on continuous nj1 cardiac and pulse oximetry monitoring. NIBP monitoring applied. nuclear monitoring technician on. 10:00 Inserted saline lock: 22 gauge in right antecubital area, using aseptic technique. nj1 Blood collected. 10:19 XRAY Chest (1 view) In Process Unspecified. EDMS 10:27 CT Traumagram (Head C Spine CAP wo con) In Process Unspecified. EDMS 10:51 Notified ED physician of a critical lab result(s). Dr. Hilliard lactate 2.2. iw 13:08 Anuj Farfan MD is Hospitalizing Provider. roosevelt 13:30 Repositioned patient. Cleaned of incontinence. Linen changed. nj1 14:24 [facility]enak[facility] Tenorio [facility]C [facility] snw 17:21 IV discontinued, intact, bleeding controlled, Pressure dressing applied. nj1 17:21 No provider procedures requiring assistance completed. nj1 Administered Medications: 10:50 Drug: NS 0.9% IV 1000 ml IV at 1 bolus Per protocol; 1000 mL bolus Route: IV; Rate: 1 iw bolus; Site: left hand; 16:00 Follow up: IV Status: Completed infusion; IV Intake: 1000ml nj1 10:52 Drug: Rocephin IV 1 grams IV at per protocol once; Given slow IV push per pharmacy iw instructions Route: IV; Rate: per protocol; Site: left hand; 11:02 Follow up: Response: No adverse reaction; IV Status: Completed infusion; IV Intake: 05ircg5 16:31 Drug: Sodium Chloride 0.9% IVPB 500 ml IVPB at 70 ml/hr once Route: IVPB; Rate: 70 nj1 ml/hr; Site: left hand; 17:21 Follow up: Response: No adverse reaction; IV Status: Order to discontinue infusion; IV nj1 Intake: 70ml Intake: 11:02 IV: 10ml; Total: 10ml. nj1 16:00 IV: 1000ml; Total: 1010ml. nj1 17:21 IV: 70ml; Total: 1080ml. nj1 Outcome: 13:09 Decision to Hospitalize by Provider. roosevelt 17:07 Discharged to intermediate. Jayashree Crowell RN has talked to intermediate staff. Discharge nj1 instructions given to patients . 17:07 Condition: stable nj1 17:07 Discharge instructions given to family, supervisor engine assembly, Instructed on discharge instructions, follow up and referral plans. Demonstrated understanding of instructions, follow-up care, 18:29 Patient left the ED. nj1 Signatures: Dispatcher [employer] EDOR Karel Hilliard MD MD cha Waters, Shelly, FNP-C HAND BINDER CUTTER-Csnw Jayashree Thibodeaux RN RN iw Bradberry, Kelly RN ARLENE kb3 Shelley Robins RN RN nj1 Corrections: (The following items were deleted from the chart) 18:34 18:24 Reassessment: [facility] here to transport patient back to intermediate. nj1 Report given to Kayla MCKINNON. nj1 18:40 09:41 Acuity: DELILAH 3 nj1 kb3
--- NOTE | 2023-08-19 13:10 | EDPHYS ---
Physician Documentation [facility] Name: Ron Murray Age: 68 yrs Sex: Male : 1955 Arrival Date: 08/19/2023 Time: 09:37 Bed 17 Private MD: ED Physician Karel Hilliard HPI: 08/18 12:56 This 68 yrs old Black Male presents to ER via EMS with complaints of Altered Mental roosevelt Status. 12:56 The patient presents with confusion, decreased mental status, decreased responsiveness, roosevelt trouble concentrating. Onset: The symptoms/episode began/occurred 1 week(s) ago. Possible causes: CVA or TIA, head injury, low blood sugar, seizure, sepsis, unknown. Associated signs and symptoms: Pertinent positives: confusion. Current symptoms: In the emergency department the patient's symptoms are unchanged from the initial presentation, despite home interventions. Patient's baseline: Neuro: alert but confused, Motor: no deficits, Ambulation: unable to walk, is bedridden, Speech: normal for age. The patient has experienced similar episodes in the past, multiple times. Historical: - Allergies: 09:46 No Known Allergies; nj1 - PMHx: 09:46 Alzheimers; cerebral ischemia; Dementia; DYSPHAGIA; Hyperlipidemia; Hypertension; nj1 muscle weakness; muscle weakness; osteoarthritis; schizoaffective; - Immunization history:: Adult Immunizations unknown. - Infectious Disease History:: unable to obtain. - Social history:: Smoking status: unknown. - Family history:: not pertinent. ROS: 12:58 Constitutional: Negative for fever, chills, and weight loss, Eyes: Negative for injury, roosevelt pain, redness, and discharge, ENT: Negative for injury, pain, and discharge, Neck: Negative for injury, pain, and swelling, Cardiovascular: Negative for chest pain, palpitations, and edema, Respiratory: Negative for shortness of breath, cough, wheezing, and pleuritic chest pain, Abdomen/GI: Negative for abdominal pain, nausea, vomiting, diarrhea, and constipation, Back: Negative for injury and pain, : Negative for injury, bleeding, discharge, and swelling, MS/Extremity: Negative for injury and deformity, Skin: Negative for injury, rash, and discoloration, Psych: Negative for depression, anxiety, suicide ideation, homicidal ideation, and hallucinations, Allergy/Immunology: Negative for hives, rash, and allergies, Endocrine: Negative for neck swelling, polydipsia, polyuria, polyphagia, and marked weight changes, Hematologic/Lymphatic: Negative for swollen nodes, abnormal bleeding, and unusual bruising, 12:58 Neuro: Positive for altered mental status, weakness, Exam: 12:58 Constitutional: This is a well developed, well nourished patient who is awake, alert, roosevelt and in no acute distress. Head/Face: Normocephalic, atraumatic. Eyes: Pupils equal round and reactive to light, extra-ocular motions intact. Lids and lashes normal. Conjunctiva and sclera are non-icteric and not injected. Cornea within normal limits. Periorbital areas with no swelling, redness, or edema. ENT: Nares patent. No nasal discharge, no septal abnormalities noted. Tympanic membranes are normal and external auditory canals are clear. Oropharynx with no redness, swelling, or masses, exudates, or evidence of obstruction, uvula midline. Mucous membranes moist. Neck: Trachea midline, no thyromegaly or masses palpated, and no cervical lymphadenopathy. Supple, full range of motion without nuchal rigidity, or vertebral point tenderness. No Meningismus. Chest/axilla: Normal chest wall appearance and motion. Nontender with no deformity. No lesions are appreciated. Cardiovascular: Regular rate and rhythm with a normal S1 and S2. No gallops, murmurs, or rubs. Normal PMI, no JVD. No pulse deficits. Respiratory: Lungs have equal breath sounds bilaterally, clear to auscultation and percussion. No rales, rhonchi or wheezes noted. No increased work of breathing, no retractions or nasal flaring. Abdomen/GI: Soft, non-tender, with normal bowel sounds. No distension or tympany. No guarding or rebound. No evidence of tenderness throughout. Back: No spinal tenderness. No costovertebral tenderness. Full range of motion. Male : Normal genitalia with no discharge or lesions. Skin: Warm, dry with normal turgor. Normal color with no rashes, no lesions, and no evidence of cellulitis. MS/ Extremity: Pulses equal, no cyanosis. Neurovascular intact. Full, normal range of motion. Psych: Awake, alert, with orientation to person, place and time. Behavior, mood, and affect are within normal limits. 12:58 Neuro: Orientation: Not oriented to person, place, time, situation, Mentation: slow to respond, confused, Memory: unable to test, Cranial nerves: unable to test, Cerebellar function: unable to test, Motor: moves all fours, Gait: not tested. seizure activity, is not displayed by the patient, 13:09 ECG was reviewed by the Attending Physician. [facility] Vital Signs: 10:00 BP 144 / 93; Pulse 108; Resp 18; Temp 97.2(TE); Pulse Ox 97% on R/A; Weight 68.04 kg nj1 (M); 11:11 BP 160 / 96; Pulse 89; Resp 16; Pulse Ox 98% on R/A; nj1 12:10 BP 161 / 91; Pulse 74; Resp 14; Pulse Ox 99% on R/A; nj1 13:15 BP 181 / 94; Pulse 93; Resp 16; Pulse Ox 98% on R/A; nj1 14:15 BP 150 / 94; Pulse 85; Resp 17; Pulse Ox 96% on R/A; nj1 15:30 BP 177 / 92; Pulse 82; Resp 15; Temp 97.4(TE); Pulse Ox 100% ; nj1 16:41 BP 184 / 97; Pulse 85; Resp 16; Pulse Ox 98% on R/A; nj1 Jovita Coma Score: 12:58 Eye Response: spontaneous(4). Motor Response: localizes pain(5). Verbal Response: roosevelt confused(4). Total: 13. MDM: 09:40 Patient medically screened. [facility] 13:00 Differential Diagnosis: CVA, electrolyte abnormality, intracranial bleed, pneumonia, roosevelt seizure, sepsis, TIA, UTI, volume depletion. Data reviewed: vital signs, nurses notes, lab test result(s), EKG, radiologic studies, CT scan, plain films. Consideration of Admission/Observation Patient was admitted/placed on observation. Escalation of care including admission/observation considered. I considered the following discharge prescriptions or medication management in the emergency department Medications were administered in the Emergency Department. See MAR. Test considered but Not performed: MRI: no mri brain. Care significantly affected by the following chronic conditions: Diabetes, Hypertension, alzheimers, cva, dysphagia, dementia, schizoaffective. 08/18 09:41 Order name: Basic Metabolic Panel; Complete Time: 12:35 [facility] 08/18 09:41 Order name: CBC with Diff; Complete Time: 12:35 roosevelt 08/18 09:41 Order name: LFT's; Complete Time: 12:35 [facility] 08/18 09:41 Order name: Magnesium; Complete Time: 12:35 roosevelt 08/18 09:41 Order name: NT PRO-BNP; Complete Time: 12:35 [facility] 08/18 09:41 Order name: PT-INR; Complete Time: 12:35 [facility] 08/18 09:41 Order name: Troponin HS; Complete Time: 12:35 [facility] 08/18 09:41 Order name: Lipase; Complete Time: 12:35 [facility] 08/18 09:41 Order name: Urinalysis w/ reflexes; Complete Time: 14:26 [facility] 08/18 09:41 Order name: SARS RAPID; Complete Time: 12:35 roosevelt 08/18 09:41 Order name: Flu; Complete Time: 12:35 [facility] 08/18 09:41 Order name: Blood Culture Adult (2) 08/18 09:41 Order name: Lactate w/ 2H reflex if indic.; Complete Time: 12:35 [facility] 08/18 13:26 Order name: Lactate Sepsis 2 HR Follow-up; Complete Time: 14:26 EDMS 08/18 09:41 Order name: XRAY Chest (1 view); Complete Time: 12:35 [facility] 08/18 09:41 Order name: CT Traumagram (Head C Spine CAP wo con); Complete Time: 12:35 [facility] 08/18 09:41 Order name: Cardiac monitoring; Complete Time: 11:10 [facility] 08/18 09:41 Order name: EKG - Nurse/Tech; Complete Time: 11:10 [facility] 08/18 09:41 Order name: IV Saline Lock; Complete Time: 10:22 roosevelt 08/18 09:41 Order name: Labs collected and sent; Complete Time: 10:22 08/18 09:41 Order name: O2 Per Protocol; Complete Time: 10:22 [facility] 08/18 09:41 Order name: O2 Sat Monitoring; Complete Time: 10:22 [facility] 08/18 12:55 Order name: Misc. Order: get cath ua; Complete Time: 13:42 roosevelt EC:09 Rate is 85 beats/min. Rhythm is regular. QRS [place] is Normal. [place] interval is normal. QRS roosevelt interval is normal. No Q waves. Clinical impression: NSR w/ Non-specific ST/T Changes and No evidence of ischemia. Interpreted by me. Reviewed by me. Administered Medications: 10:50 Drug: NS 0.9% IV 1000 ml IV at 1 bolus Per protocol; 1000 mL bolus Route: IV; Rate: 1 iw bolus; Site: left hand; 16:00 Follow up: IV Status: Completed infusion; IV Intake: 1000ml nj1 10:52 Drug: Rocephin IV 1 grams IV at per protocol once; Given slow IV push per pharmacy iw instructions Route: IV; Rate: per protocol; Site: left hand; 11:02 Follow up: Response: No adverse reaction; IV Status: Completed infusion; IV Intake: [id number] 16:31 Drug: Sodium Chloride 0.9% IVPB 500 ml IVPB at 70 ml/hr once Route: IVPB; Rate: 70 nj1 ml/hr; Site: left hand; 17:21 Follow up: Response: No adverse reaction; IV Status: Order to discontinue infusion; IV nj1 Intake: 70ml Disposition Summary: 08/19/23 13:09 Hospitalization Ordered Notes: Hospitalization Status: Inpatient Admission roosevelt Provider: Anuj Farfan cha Location: Telemetry/MedSurg (Inpatient) roosevelt Condition: Fair roosevelt Problem: new roosevelt Symptoms: have improved roosevelt Bed/Room Type: Standard roosevelt Room Assignment: roosevelt Diagnosis - Weakness roosevelt - Altered mental status, unspecified roosevelt - Anorexia roosevelt - Alzheimer's disease, unspecified roosevelt Forms: - Medication Reconciliation Form roosevelt - SBAR form roosevelt - Leadership Thank You Letter roosevelt Signatures: Dispatcher [employer] Karel Massey MD MD cha Waters, Shelly, MILIEU COUNSELOR-C MILIEU COUNSELOR-Jayashree Elizabeth, RN RN Shelley Robins RN RN nj1 Corrections: (The following items were deleted from the chart) 09:42 09:42 BASIC METABOLIC PANEL+C.LAB.BRZ ordered. EDMS EDMS 09:42 09:42 CBC+H.LAB.BRZ ordered. EDMS EDMS 09:42 09:42 HEPATIC FUNCTION+C.LAB.BRZ ordered. EDMS EDMS 09:42 09:42 MAGNESIUM+C.LAB.BRZ ordered. EDMS EDMS 09:42 09:42 PROBNP+C.LAB.BRZ ordered. EDMS EDMS 09:42 09:42 PROTIME (+INR)+COAG.LAB.BRZ ordered. EDMS EDMS 09:42 09:42 Troponin High Sensitivity+C.LAB.BRZ ordered. EDMS EDMS 09:42 09:42 LIPASE+C.LAB.BRZ ordered. EDMS EDMS 09:42 09:42 Urinalysis+U.LAB.BRZ ordered. EDMS EDMS 09:42 09:42 SARS-COV-2 Antigen Rapid+I.LAB.BRZ ordered. EDMS EDMS 09:42 09:42 Influenza Screen (A \T\ B)+BA.LAB.BRZ ordered. EDMS EDMS 09:42 09:42 BLOOD CULTURE*+BA.LAB.BRZ ordered. EDMS EDMS 09:42 09:42 LACTATE+C.LAB.BRZ ordered. EDMS EDMS 09:42 09:42 Head C Spine Cap Wo Con+CT.RAD.BRZ ordered. EDMS EDMS
[2023-08-19 13:42] LABS: Specific Gravity 1.012 (1.005-1.030); Urine Bilirubin NEGATIVE (Negative); Urine Blood Negative (Negative); Urine Clarity Clear (Clear); Urine Color Light-Yellow (Yellow); Urine Glucose NEGATIVE (Negative); Urine Ketones NEGATIVE (Negative); Urine Microscopic Reflex YN NO UMIC; Urine Nitrite NEGATIVE (Negative); Urine Protein NEGATIVE (Negative); Urine Urobilinogen Normal (Normal)
--- NOTE | 2023-08-19 14:21 | P.HP ---
Certification for Inpatient Patient admitted to: Observation With expected LOS: <2 Midnights Patient will require the following post-hospital care: None Practitioner: I am a practitioner with admitting privileges, knowledge of patient current condition, hospital course, and medical plan of care. Services: Services provided to patient in accordance with Admission requirements found in Title 42 Section 412.3 of the Code of Federal Regulations <Norma Tenoriokaela Jordan - Last Filed: 08/19/23 14:49> Patient History Date of Service: 08/19/23 Reason for admission: change in activity, mild dehydration History of Present Illness: Mr. Murray is a 68-year-old with a history of neuro-epileptic parkinsonism, and schizoaffective disorder who resides at [facility]. All of his history is from record review and ED personnel as Mr. Murray does not speak. He does not appear to be in pain, he tracks me with his eyes, and is alert on assessment. He has no shortness of breath, does not appear to have pain, vital signs are within normal, laboratory evaluation in the emergency department is normal except for a lactate of 2.1. He was given 1 L normal saline bolus and 1gm of Rocephin IV in the emergency department. His repeat lactate is 1.6. He appears at his written baseline. We will observe him for a few hours and d ischarged him to [place] if there are no unforeseen complications. Home medications list reviewed: Yes - Past Medical/Surgical History Diabetic: No -: neuroleptic parkinsonism -: CHF -: HTN -: schizoaffective disorder -: dysphagia -: anxiety -: HLD -: Cerebral ischemia -: right nephrectomy Psychosocial/ Personal History: Lives at [facility]. to [place] [phone] - Social History Smoking Status: Unknown if ever smoked Alcohol use: No CD- Drugs: No Caffeine use: Yes [facility] <CobyMeenakshi Jordan - Last Filed: 08/19/23 14:49> Date of Service: 08/19/23 <Anuj Farfan - Last Filed: 08/19/23 22:11> Allergies No Known Allergies Allergy (Unverified 05/05/23 21:19) Home Medications: Acetaminophen [Tylenol] 650 mg PO Q6HR PRN 05/06/23 Atorvastatin Calcium 10 mg PO BEDTIME 05/06/23 Benztropine Mesylate 1 mg PO BEDTIME 05/06/23 Buspirone HCl 30 mg PO BID 05/06/23 Docusate Sodium 100 mg PO BID 05/06/23 Donepezil HCl 23 mg PO BEDTIME 05/06/23 Furosemide [Lasix*] 20 mg PO DAILY 05/06/23 Loratadine [Claritin*] 10 mg PO DAILY 05/06/23 Mag Hydroxide 8% [Milk Of Magnesia*] 400 mg PO DAILY 05/06/23 Memantine HCl [Namenda*] 10 mg PO BID 05/06/23 Polyethyl Gly 3350 [Glycolax*] 17 gm PO DAILY PRN 05/06/23 Risperidone [Risperidone Odt] 3 mg PO BEDTIME 05/06/23 Trazodone HCl 50 mg PO BEDTIME 05/06/23 Hydralazine [Apresoline*] 25 mg PO TID PRN #30 tab 05/07/23 Review of Systems 10-point ROS is otherwise unremarkable General: As per HPI Neurological: As per HPI <Meenakshi Tenorio Julian - Last Filed: 08/19/23 14:49> Physical Examination - Physical Exam General: In no apparent distress, Other (noncommunicative) HEENT: Atraumatic, Normocephalic Neck: Supple Respiratory: Normal air movement Cardiovascular: Regular rate/rhythm Capillary refill: <2 Seconds Gastrointestinal: Soft and benign Musculoskeletal: No clubbing, No swelling Integumentary: No rashes Neurological: Abnormal speech, Abnormal tone, Abnormal affect Lymphatics: No axilla or inguinal lymphadenopathy External genitalia: Deferred Rectal: Deferred - Studies Laboratory Data (last 24 hrs) 08/19/23 08/19/23 08/19/23 10:00 10:00 10:00 WBC 5.10 Hgb 13.2 L Hct 39.8 Plt Count 205 PT 12.1 INR 1.10 Sodium 136 Potassium 3.7 BUN 8 Creatinine 1.39 H Glucose 172 H Magnesium 1.9 Total Bilirubin 0.3 AST 45 H ALT 49 Alkaline Phosphatase 114 Lipase 66 Microbiology Data (last 24 hrs): 08/19/23 11:13 Nasopharnyx Influenza Type A Antigen Screen - Final 08/19/23 11:13 Nasopharnyx Influenza Type B Antigen Screen - Final <Meenakshi Tenoriolen - Last Filed: 08/19/23 14:49> - Studies Laboratory Data (last 24 hrs) 08/19/23 08/19/23 08/19/23 10:00 10:00 10:00 WBC 5.10 Hgb 13.2 L Hct 39.8 Plt Count 205 PT 12.1 INR 1.10 Sodium 136 Potassium 3.7 BUN 8 Creatinine 1.39 H Glucose 172 H Magnesium 1.9 Total Bilirubin 0.3 AST 45 H ALT 49 Alkaline Phosphatase 114 Lipase 66 Microbiology Data (last 24 hrs): 08/19/23 11:13 Nasopharnyx Influenza Type A Antigen Screen - Final 08/19/23 11:13 Nasopharnyx Influenza Type B Antigen Screen - Final <Anuj Farfan - Last Filed: 08/19/23 22:11> Assessment and Plan - Plan Generalized weakness: encourage PT at [place] Mild volume depletion: Given 1L NS in ED Continue NS at 70ml/hr Dicharge to [place] [facility] at 1645 if no unforseen complications/complaints. Discharge Plan: [facility] Plan to discharge in: 24 Hours - Advance Directives Does patient have a Living Will: No Does patient have a Durable POA for Healthcare: No <Meenakshi Tenoriolen - Last Filed: 08/19/23 14:49> - Plan Pt seen and examined. I agree with the note by the SUPERVISOR PLATE [employer]. Pt is a 68 yo male half-way pt with past medical history of neuro-epileptic parkinsonism and schizoaffective disorder who presents with weakness. Of note, pt is non-verbal due to his medical condition. On admission, lab studies show evidence f volume depletion. wbc is 5.1, hgb 13.3, K 3.7, Cr 1.39, lactate is 1.5 <- 2.2, troponin 10.[address] chest/ abd/pelvis is unremarkable. CXR is unremarkable. At bedside, pt is in NAD A/P: Volume depletion: We gave IVF and observed pt in the hospital for a few hours. Lactic acidosis: Lactate improved from 2.2 to 1.5 with IVF. ONOFRE: cr is 1.39. Will give IVF and avoid nephrotoxin. Code: full <Anuj Farfan - Last Filed: 08/19/23 22:11>
--- NOTE | 2023-08-19 15:01 | P.SSS ---
Patient History Date of Service: 08/19/23 Reason for admission: change in activity, mild dehydration History of Present Illness: Mr. Murray is a 68-year-old with a history of neuro-epileptic parkinsonism, and schizoaffective disorder who resides at [facility]. All of his history is from record review and ED personnel as Mr. Murray does not speak. He does not appear to be in pain, he tracks me with his eyes, and is alert on assessment. He has no shortness of breath, does not appear to have pain, vital signs are within normal, laboratory evaluation in the emergency department is normal except for a lactate of 2.1. He was given 1 L normal saline bolus and 1gm of Rocephin IV in the emergency department. His repeat lactate is 1.6. He appears at his written baseline. We will observe him for a few hours and discharged him to [place] if there are no unforeseen complications. Allergies No Known Allergies Allergy (Unverified 05/05/23 21:19) Home medications list reviewed: Yes Home Medications: Acetaminophen [Tylenol] 650 mg PO Q6HR PRN 05/06/23 Atorvastatin Calcium 10 mg PO BEDTIME 05/06/23 Benztropine Mesylate 1 mg PO BEDTIME 05/06/23 Buspirone HCl 30 mg PO BID 05/06/23 Docusate Sodium 100 mg PO BID 05/06/23 Donepezil HCl 23 mg PO BEDTIME 05/06/23 Furosemide [Lasix*] 20 mg PO DAILY 05/06/23 Loratadine [Claritin*] 10 mg PO DAILY 05/06/23 Mag Hydroxide 8% [Milk Of Magnesia*] 400 mg PO DAILY 05/06/23 Memantine HCl [Namenda*] 10 mg PO BID 05/06/23 Polyethyl Gly 3350 [Glycolax*] 17 gm PO DAILY PRN 05/06/23 Risperidone [Risperidone Odt] 3 mg PO BEDTIME 05/06/23 Trazodone HCl 50 mg PO BEDTIME 05/06/23 Hydralazine [Apresoline*] 25 mg PO TID PRN #30 tab 05/07/23 - Past Medical/Surgical History Diabetic: No -: neuroleptic parkinsonism -: CHF -: HTN -: schizoaffective disorder -: dysphagia -: anxiety -: HLD -: Cerebral ischemia -: right nephrectomy Psychosocial/ Personal History: Lives at [facility]. to [place] [phone] - Social History Smoking Status: Unknown if ever smoked Alcohol use: No CD- Drugs: No Caffeine use: Yes Place of Residence: [facility] Review of Systems 10-point ROS is otherwise unremarkable Neurological: Other (change in activity) Physical Examination - Physical Exam General: Alert, Other (nonverbal) HEENT: Normocephalic Neck: JVD not distended Respiratory: Normal air movement Cardiovascular: Normal pulses, Regular rate/rhythm Capillary refill: <2 Seconds Gastrointestinal: Soft and benign Musculoskeletal: No clubbing, No swelling Integumentary: No rashes Neurological: Abnormal speech, Abnormal affect, Dementia Lymphatics: No axilla or inguinal lymphadenopathy External genitalia: Deferred Rectal: Deferred - Studies Laboratory Data (last 24 hrs) 08/19/23 08/19/23 08/19/23 10:00 10:00 10:00 WBC 5.10 Hgb 13.2 L Hct 39.8 Plt Count 205 PT 12.1 INR 1.10 Sodium 136 Potassium 3.7 BUN 8 Creatinine 1.39 H Glucose 172 H Magnesium 1.9 Total Bilirubin 0.3 AST 45 H ALT 49 Alkaline Phosphatase 114 Lipase 66 Microbiology Data (last 24 hrs): 08/19/23 11:13 Nasopharnyx Influenza Type A Antigen Screen - Final 08/19/23 11:13 Nasopharnyx Influenza Type B Antigen Screen - Final - Disposition Disposition: ROUTINE DISCHARGE Followup: Jorge Gonzalez MD [Primary Care Provider] - Prvt As Needed Diet: per [place]
[2023-08-19 23:13] VITALS: BP 184/97; TEMP 97.4; O2SAT 98
--- NOTE | 2023-08-20 13:40 | EKG ---
Test Date: 2023-08-19 Test Time: 11:05:46 Manager Garage: GAGAN MEASUREMENT RESULTS: Intervals: Rate: 85 DC: 196 QRSD: 90 QT: 342 QTc: 406 [place]: P: 88 DC: 196 QRS: 72 T: 55 INTERPRETIVE STATEMENTS: Normal sinus rhythm Normal ECG Compared to ECG 05/06/2023 00:53:17 No significant changes Electronically Signed On 08-20-23 13:37:53 CDT by Anant Salinas
== END ==
LOC: ER 09:37
DX: R53.1 Weakness (principal); R41.82 Altered mental status, unspecified; R63.0 Anorexia; G30.9 Alzheimer's disease, unspecified; F02.80 Dementia in other diseases classified elsewhere, unspecified severity, without behavioral disturbance, psychotic disturbance, mood disturbance, and anxiety; I10 Essential (primary) hypertension; F25.9 Schizoaffective disorder, unspecified; Z11.52 Encounter for screening for COVID-19
CPT/HCPCS: 96365; 96361; 93005; 87040 ×2; 85025; 80048; 36415; 83735; 85610; 80076; 83605 ×2; 81003; 84484; 83690; 83880; 87804 ×2; 70450; 71250; 72125; 71045; 96375; 99285; 87811; J7040; J7030; J0696

== ENCOUNTER 2024-04-11 07:24 | Emergency (ER) | payer OTHER ==
--- OUTSIDE RECORDS SUMMARY | 2024-04-11 07:27 | XMS REPORT | Continuity of Care Document ---
Author Name Unknown Address [address] [facility] [place] [address] [facility] Address [address] [place] [address] Care Team Providers Care Cattle Farmer Name Role Phone JACKIE GUTHRIE Primary Care Physician Unavailab DR FACUNDO Gordillo Attending Clinician UnavailCOLLINS Cade Attending Clinician Unavailable LESTER MILLER Attending Clinician Unavailable DARLENE Attending Clinician Unavailable SHRUTHI FRIED Attending Clinician Unavailable BRIDGETTE MANDUJANO Attending Clinician UnavailVIRGINIA Abarca Attending Clinician Unavailable CAMERON PADGETT Attending Clinician Unavailable DR FACUNDO JOHN Admitting Clinician UnavailCOLLINS Cade Admitting Clinician Unavailable DARLENE Admitting Clinician Unavailable Payers Payer Name Policy Type Policy Number Effective Date Expirati on Date Source MEDICARE PART A \\T\\ [id number] 2020 00:00:00 [facility] STAR [id number] 2023 00:00:00 Allergies, Adverse Reactions, Alerts Allergy Name Allergy Type Status Severity Reaction(s) Onset Date Inactive Date Treating Clinician Comments Source No Known Allergie s DA Active U 2019-05 00:00: 00 [facility] No Known Allergie s DA Active U 2019-05 00:00: 00 [facility] No Known Allergie s DA Active [facility] NO KNOWN ALLERGIE S Drug Class Active [facility] Vital Signs Vital Name Observation Time Observation Value Comments S ource Weight 2020-04-15 07:00:00 65.13 KG Weight 2020-04-08 10:33:00 65.58 KG Weight 2020-04-08 09:57:00 65.31 KG Height 2020-04-03 09:34:00 175.26 CM Encounters Start Date/Time End Date/Time Encounter Type Admission Type Attending Clinicians Care Facility Care Department Encounter ID Source 2020-04-03 13:14:00 Inpatient FACUNDO PERALTA [facility] SCU [id number] [facility] 2020-03-18 11:43:00 Inpatient HCAWU TAWANNA [id number] 62 [facility] 2023-09-10 11:23:34 2023-09-10 23:59:00 Outpatient [facility] [id number] [facility] 2023-03-29 08:33:00 2023-03-29 08:33:00 Outpatient LESTER CHEN [facility] [id number] [facility] 2021-06-04 12:18:00 2021-06-04 12:18:00 Outpatient JAMES WARE [id number] [facility] 2020-03-08 14:24:00 2020-03-08 18:10:00 Emergency ER SHRUTHI FRIED [facility] [id number] [facility] 2019-11-23 20:37:00 2019-11-23 22:49:00 Emergency ER BRIDGETTE MANDUJANO [facility] [id number] [facility] 2015-04-26 08:07:00 2015-04-26 08:07:00 Outpatient EL VIRGINIA SUÁREZ [facility] [id number] [facility] 2010-09-24 07:19:00 2010-09-24 08:30:00 Emergency ER CAMERON PADGETT [facility] [id number] [facility] Results Test Description Test Time Test Comments Results Result Co mments Source GLUCOMETER GLUCOSE- LAB USE [id number] 07:28:00* Test Item Value Reference Range Interpretation Comme [facility] GLUCOMETER (test code = GMG) 102 mg/dL 70-100 H CLEANED METERMet er ID: [id number]: [id number] JENNIFER SCHAEFFERKNIGHT B12 [id number] 18:26:00* Test Item Value Reference Range Interpretation Comme [facility] VIT B12 (test code = A60) 459.0 pg/mL 180.0-914.0 [id number] 18:26:00* Test Item Value Reference Range Interpretation Comme [facility] FOLATE (test code = A75) 15.0 ng/mL 3.1-17.5 LIPID [id number] 18:26:00* Test Item Value Reference Range Interpretation Comme [facility] CHOLESTROL (test code = 44A) 192 mg/dL 140-200 TRIGLYCERI (test code = 42B) 61 mg/dL <=149 HDL (test code = 83D) 94.0 mg/dL 40.0-60.0 H LDL (test code = 34B) 86 mg/dL <=99 CHL/HDL (test code = CHR) 2.0 0.0-3.4 THYROID PANEL/SCREEN (TSH)2020-04-03 18:22:00* Test Item Value Reference Range Interpretation Comme [facility] TSH (test code = A57) 0.610 uIU/mL 0.358-3.740 [id number] 18:18:00* Test Item Value Reference Range Interpretation Comme nts MAGNESIUM (test code = 48A) 2.2 mg/dL 1.8-2.4 [id number] 18:18:00* Test Item Value Reference Range Interpretation Comme [facility] PREALBUMIN (test code = 08E) 34 mg/dL 18-38 [id number] 18:05:00* Test Item Value Reference Range Interpretation Comme nts Hb A1C % (test code = HBA) 4.7 % 3.8-6.4 A1C % (test code = A1C) HbA1c (% ) Reference Range Normal <5.7 Prediabetes 5.7-6.4 Diabetic >=6.5 [id number] 11:51:00* Test Item Value Reference Range Interpretation Comme [facility] ACETAMINPH (test code = 94M) <2.0 ug/mL 10.0-30.0 L [id number] 11:49:00* Test Item Value Reference Range Interpretation Comme [facility] FERRITIN (test code = A19) 521.4 ng/mL 26.0-388.0 H LDH-LACTIC [id number] 11:49:00* Test Item Value Reference Range Interpretation Comme nts LDH (test code = 33A) 241 IU/L 87-241 C-REACTIVE PROTEIN [id number] 11:41:00* Test Item Value Reference Range Interpretation Comme nts CRP QUANT (test code = CRPQ) <2.9 mg/L 0.0-2.9 Method Change (test code = METHOD) Please note the change in Method and the reference range COMPREHENSIVE METABOLIC [id number] 11:41:00* Test Item Value Reference Range Interpretation [...] (test code = 31A) 36 IU/L <=78 [id number] 11:41:00* Test Item Value Reference Range Interpretation Comme nts SALICYLATE (test code = 94B) <1.7 mg/dL 2.8-20.0 L ALCOHOL BLOOD (ETOH)2020-04-03 11:38:00* Test Item Value Reference Range Interpretation Comme nts ETOH (test code = HALC) ETHANOL * The result is to be used only for medical purposes ALCOHOL (test code = 56A) <10 mg/dL <=10 CARDIAC [id number] 11:37:00* Test Item Value Reference Range Interpretation [...] the FDA and the [employer] (CAP) are more stringent than those required for this test. Therefore, the result should be interpreted with caution and close attention to other clinical and epidemiological data AMMONIA [id number] 11:32:00* Test Item Value Reference Range Interpretation Comme nts AMMONIA (test code = 54A) 18 umol/L PRO TIME AND [id number] 11:26:00* Test Item Value Reference Range Interpretation [...] or LMW Heparin. Order Code is ANTI-XA [id number] 11:26:00* Test Item Value Reference Range Interpretation [...] = RBCMOR) NORMAL - CT HEAD/BRAIN W/O [id number] 14:32:00 [facility] 1955 Sex: M Patient Name: JENNIFER BARTHOLOMEW Unit No: [id number] EXAMS: CPT CODE: [id number] CT HEAD/BRAIN W/O CONT 92053 CT HEAD WITHOUT CONTRAST CLINICAL HISTORY: Psych clearance, psych evaluation COMPARISON: Noneavailable. TECHNIQUE: 5 mm axial images of the brain were obtained without contrast. Coronal and sagittal reformats were obtained. One or more of the following dose reduction techniques were used: Au tomated exposure control, adjustment of the mA and/or [...] pneumatized and well-aerated. IMPRESSION: 1. Moderate cerebral a trophy, predominantly affecting the frontotemporal lobes. 2. No acute intracranial hemorrhage. 3. Chronic microvascular ischemic disease. Location: R16 at 1432 Reported and signed by: Tom Babin M.D. CC: Dustin Womack MD Technologist: Venkatesh West, RT(R); Vinnie CTDI: DLP: Trnscrpt: 03/18/2020 (1432) [email or web address] [facility] NAME: JENNIFER BARTHOLOMEW [address] PHYS: TRAMI.Jeanette - [place] [address] : 1955 AGE: 64 SEX: M LOC: Trace.ERS PHONE #: [phone] EXAM DATE: 03/18/2020 STATUS: REG ER FAX #: [phone] RAD #: D/C DT PAGE 1 Signed Report Patient Name: JENNIFER BARTHOLOMEW Unit No: [id number] EXAMS: CPT CODE: [id number] CT HEAD/BRAIN W/O CONT 32968 (Continued) Orig Print D/T: S: 03/18/2020 (1435) [facility] NAME: JENNIFER BARTHOLOMEW [address] [address] PHYS: [email or web address] - [place] [address] : 1955 AGE: 64 SEX: M LOC: KANDY PHONE #: [phone] EXAM DATE: 03/18/2020 STATUS: REG ER FAX #: [phone] RAD #: D/C DT PAGE 2 Signed ReportCOVID 19 Asymptomatic IH [id number] 13:50:00* Test Item Value Reference Range Interpretation [...] virus (antigen) in the sample." BASIC METABOLIC [id number] 13:40:00* Test Item Value Reference Range Interpretation [...] CA) 9.7 MG/DL 8.4-10.2 N HEPATIC FUNCTION [id number] 13:40:00* Test Item Value Reference Range Interpretation [...] code = ALKP) 78 UNITS/L 38-126 N [id number] 13:40:00* Test Item Value Reference Range Interpretation Comme nts TROPONIN-I (test code = TROPI) 0.013 NG/ML 0.012-0.033 N [id number] 13:40:00* Test Item Value Reference Range Interpretation Comme nts ACETAMINOPHEN (test code = ACET) < 10.0 MCG/ML 10-30 L [id number] 13:40:00* Test Item Value Reference Range Interpretation Comme nts SALICYLATE (test code = ROBER) < 1.0 MG/DL <2.0 [id number] 13:40:00* Test Item Value Reference Range Interpretation Comme nts ALCOHOL (test code = ALC) < 10.0 MG/DL <10 BASIC METABOLIC [id number] 13:30:00* Test Item Value Reference Range Interpretation [...] CA) 9.7 MG/DL 8.4-10.2 N HEPATIC FUNCTION [id number] 13:30:00* Test Item Value Reference Range Interpretation [...] code = ALKP) 78 UNITS/L 38-126 N [id number] 13:30:00* Test Item Value Reference Range Interpretation Comme nts TROPONIN-I (test code = TROPI) NG/ML 0.0-0.045 [id number] 13:30:00* Test Item Value Reference Range Interpretation Comme nts ACETAMINOPHEN (test code = ACET) < 10.0 MCG/ML 10-30 L [id number] 13:30:00* Test Item Value Reference Range Interpretation Comme nts SALICYLATE (test code = ROBER) < 1.0 MG/DL <2.0 [id number] 13:30:00* Test Item Value Reference Range Interpretation Comme nts ALCOHOL (test code = ALC) < 10.0 MG/DL <10 URINALYSIS [id number] 13:29:00* Test Item Value Reference Range Interpretation [...] OF URINE: CLEAN CATCHDRUGS OF ABUSE SCREEN [id number] 13:29:00* Test Item Value Reference Range Interpretation [...] ng/mL SOURCE OF URINE: CLEAN CATCHBASIC METABOLIC [id number] 13:29:00* Test Item Value Reference Range Interpretation [...] CA) 9.7 MG/DL 8.4-10.2 N HEPATIC FUNCTION [id number] 13:29:00* Test Item Value Reference Range Interpretation [...] code = ALKP) 78 UNITS/L 38-126 N [id number] 13:29:00* Test Item Value Reference Range Interpretation Comme nts TROPONIN-I (test code = TROPI) NG/ML 0.0-0.045 [id number] 13:29:00* Test Item Value Reference Range Interpretation Comme nts ACETAMINOPHEN (test code = ACET) < 10.0 MCG/ML 10-30 L [id number] 13:29:00* Test Item Value Reference Range Interpretation Comme nts SALICYLATE (test code = ROBER) < 1.0 MG/DL <2.0 [id number] 13:29:00* Test Item Value Reference Range Interpretation Comme nts ALCOHOL (test code = ALC) MG/DL <10 BASIC METABOLIC [id number] 13:28:00* Test Item Value Reference Range Interpretation [...] code = CA) MG/DL 8.7-9.7 HEPATIC FUNCTION [id number] 13:28:00* Test Item Value Reference Range Interpretation [...] PHOSPHATASE (test code = ALKP) UNITS/L 38-126 [id number] 13:28:00* Test Item Value Reference Range Interpretation Comme nts TROPONIN-I (test code = TROPI) NG/ML 0.0-0.045 [id number] 13:28:00* Test Item Value Reference Range Interpretation Comme nts ACETAMINOPHEN (test code = ACET) MCG/ML 10-30 [id number] 13:28:00* Test Item Value Reference Range Interpretation Comme nts SALICYLATE (test code = ROBER) MG/DL <2.0 [id number] 13:28:00* Test Item Value Reference Range Interpretation Comme nts ALCOHOL (test code = ALC) MG/DL <10 URINALYSIS [id number] 13:28:00* Test Item Value Reference Range Interpretation [...] OF URINE: CLEAN CATCHDRUGS OF ABUSE SCREEN [id number] 13:28:00* Test Item Value Reference Range Interpretation [...] PHENCU) NEGATIVE SOURCE OF URINE: CLEAN CATCHURINALYSIS [id number] 13:27:00* Test Item Value Reference Range Interpretation [...] OF URINE: CLEAN CATCHDRUGS OF ABUSE SCREEN [id number] 13:27:00* Test Item Value Reference Range Interpretation [...] NEGATIVE SOURCE OF URINE: CLEAN CATCHBASIC METABOLIC [id number] 13:26:00* Test Item Value Reference Range Interpretation [...] code = CA) MG/DL 8.7-9.7 HEPATIC FUNCTION [id number] 13:26:00* Test Item Value Reference Range Interpretation [...] (test c ode = ALKP) UNITS/L 38-126 [id number] 13:26:00* Test Item Value Reference Range Interpretation Comme nts TROPONIN-I (test code = TROPI) NG/ML 0.0-0.045 [id number] 13:26:00* Test Item Value Reference Range Interpretation Comme nts ACETAMINOPHEN (test code = ACET) MCG/ML 10-30 [id number] 13:26:00* Test Item Value Reference Range Interpretation Comme nts SALICYLATE (test code = ROBER) MG/DL <2.0 [id number] 13:26:00* Test Item Value Reference Range Interpretation Comme nts ALCOHOL (test code = ALC) MG/DL <10 URINALYSIS [id number] 13:26:00* Test Item Value Reference Range Interpretation [...] OF URINE: CLEAN CATCHDRUGS OF ABUSE SCREEN [id number] 13:26:00* Test Item Value Reference Range Interpretation [...] = PHENCU) NEGATIVE SOURCE OF URINE: CLEAN [id number] 13:25:00* Test Item Value Reference Range Interpretation Comme nts SALICYLATE (test code = ROBER) MG/DL <2.0 [id number] 13:25:00* Test Item Value Reference Range Interpretation Comme nts ALCOHOL (test code = ALC) MG/DL <10 URINALYSIS [id number] 13:25:00* Test Item Value Reference Range Interpretation [...] OF URINE: CLEAN CATCHDRUGS OF ABUSE SCREEN [id number] 13:25:00* Test Item Value Reference Range Interpretation [...] NEGATIVE SOURCE OF URINE: CLEAN CATCHBASIC METABOLIC [id number] 13:25:00* Test Item Value Reference Range Interpretation [...] code = CA) MG/DL 8.7-9.7 HEPATIC FUNCTION [id number] 13:25:00* Test Item Value Reference Range Interpretation [...] (test c ode = ALKP) UNITS/L 38-126 [id number] 13:25:00* Test Item Value Reference Range Interpretation Comme nts TROPONIN-I (test code = TROPI) NG/ML 0.0-0.045 [id number] 13:25:00* Test Item Value Reference Range Interpretation Comme nts ACETAMINOPHEN (test code = ACET) MCG/ML 10-30 URINALYSIS [id number] 13:04:00* Test Item Value Reference Range Interpretation [...] OF URINE: CLEAN CATCHDRUGS OF ABUSE SCREEN [id number] 13:04:00* Test Item Value Reference Range Interpretation [...] PHENCU) NEGATIVE SOURCE OF URINE: CLEAN CATCHURINALYSIS [id number] 13:03:00* Test Item Value Reference Range Interpretation [...] BLOOD DIPSTICK (test code = POOL) NEGATIVE Mtat/mm3 NEGATIVE UA PH DIPSTICK (test code = [...] OF URINE: CLEAN CATCHDRUGS OF ABUSE SCREEN [id number] 13:03:00* Test Item Value Reference Range Interpretation [...] NEGATIVE SOURCE OF URINE: CLEAN CATCHCBC W/AUTO [id number] 13:02:00* Test Item Value Reference Range Interpretation [...] Notes Date/Time Note Provider Source 2020-03-20 08:16:00 [facility] ([facility]) Clinical Note REPORT#:[id number] REPORT STATUS: Signed DATE:03/20/20 TIME: 08 PATIENT: JENNIFER BARTHOLOMEW UNIT #: [id number] ROOM/BED: : 59 AGE: 64 SEX: M ATTEND: Dustin Womack MD ADM DT: AUTHOR: Alexa De Leon MD * ALL edits or amendments must be made on the electronic/computer document * Clinical Note Note: [id number] psych note dictated at 0817 RPT #:[id number] END OF REPORT [facility]
--- NOTE | 2024-04-11 08:50 | RAD REPORT ---
EXAMINATION: CT HEAD WITHOUT CONTRAST CLINICAL INDICATION: Male, 69 years old.TRAUMA TECHNIQUE: Axial CT images from the skull base to the vertex without intravenous contrast. Coronal an d sagittal reformatted images were created from the data set. One or more of the following dose reduction techniques were used: Automated exposure control, adjustment of the mA and/or kV according to patient size, and/or iterative reconstruction. Unless otherwise specified, incidental findings do not require dedicated imaging follow-up. [id number]. COMPARISON: 08/19/2023 FINDINGS: INTRACRANIAL: No acute intracranial hemorrhage. No hydrocephalus. No mass effect or midline shift. Ag e advanced cerebral atrophy with particular frontal and temporal lobe atrophy. Ventriculomegaly. Periventricular white matter hypoattenuation is similar. VASCULATURE: No visualized abnormalities in the arteries or dural venous sinuses. SCALP/SKULL: No significant soft tissue or osseous abnormalities. SINUSES: The visualized paranasal sinuses and mastoid air cells are predominantly clear. IMPRESSION: No acute intracranial abnormality. No skull fracture. Advanced frontotemporal atrophy
--- NOTE | 2024-04-11 09:19 | ER ---
Nurse's Notes [facility] Name: Ron Murray Age: 69 yrs Sex: Male : 1955 Arrival Date: 04/11/2024 Time: 07:24 Bed 10 Private MD: Diagnosis: Fall from non-moving wheelchair;Unspecified injury of head, initial encounter Presentation: 04/11 07:26 Chief complaint: EMS states: they were called to severn for reports of patient ap3 falling from wheelchair hitting the left side of his head. it is reported there was no LOC. Coronavirus screen: At this time, the client does not indicate any symptoms associated with coronavirus-19. Ebola Screen: No symptoms or risks identified at this time. Initial Sepsis Screen: Does the patient meet any 2 criteria? HR > 90 bpm. Does the patient have a suspected source of infection? No. Patient's initial sepsis screen is negative. Risk Assessment: Do you want to hurt yourself or someone else? Patient reports no desire to harm self or others. Onset of symptoms was April 11, 2024. 07:26 Method Of Arrival: EMS: [facility] ap3 07:26 Acuity: DELILAH 3 ap3 Triage Assessment: 07:28 General: Appears in no apparent distress. Behavior is calm. Pain: Unable to use pain ap3 scale. nonverbal. Neuro: Level of Consciousness is awake, alert, nonverbal. Cardiovascular: Patient's skin is warm and dry. Respiratory: Airway is patent Respiratory effort is even, unlabored, Respiratory pattern is regular, symmetrical. 07:32 Musculoskeletal: patient is leaning forward in the bed. patient refuses to lay back. ap3 EMS states that's how he was when they arrived, and how he was during their entire drive to this facility. EMS reported that the facility stated this was the patients baseline. Historical: - Allergies: 07:27 No Known Allergies; ap3 - PMHx: 07:27 Alzheimers; cerebral ischemia; Dementia; DYSPHAGIA; Hyperlipidemia; Hypertension; ap3 muscle weakness; muscle weakness; osteoarthritis; schizoaffective; - Immunization history:: Adult Immunizations up to date. - Infectious Disease History:: Denies. - Social history:: Smoking status: unknown. Screenin:33 Abuse screen: Denies threats or abuse. Nutritional screening: No deficits noted. ap3 Tuberculosis screening: No symptoms or risk factors identified. 09:30 [facility] ED Fall Risk Assessment (Adult) History of falling in the last 3 months, ap3 including since admission Yes- fall prone (multiple falls) (3 pts) Confusion or Disorientation Yes (5 pts) Intoxicated or Sedated No (0 pts) Impaired Gait Yes (1 pt) Mobility Assist Device Used Yes (1 pt) Altered Elimination Yes (1 pt) Score/Fall Risk Level 3 or more points = High Risk Oriented to surroundings, Maintained a safe environment, Educated pt \T\ family on fall prevention, incl call for assistance when getting out of bed, Assessed \T\ reinforced patient's understanding of fall precautions, Hourly rounding (assess needs \T\ fall precautionary measures) done, Used ambulatory aids as needed (educated on \T\ assisted with), Used gait belt as appropriate Implemented a Fall Risk Plan of Care, Apply high fall risk patient identification: yellow non skid footwear/ fall signage, Remained w/in arm's length of patient and in sight while toileting, Offered frequent toileting (1:1 observation), Remained with patient while ambulating, Utilized family, sitter, or virtual prison warden as indicated. Assessment: 08:05 General: family at bedside. ap3 09:27 General: this nurse called and spoke with severn staff member, Nancy. She reports ap3 transportation will be contacted and will call back with an ETA. Vital Signs: 07:26 BP 147 / 97; Pulse 111; Resp 17; Temp 98.1; Pulse Ox 98% ; Weight 67.59 kg; ap3 08:21 BP 145 / 84; Pulse 103; Pulse Ox 94% on R/A; ap3 ED Course: 07:26 Patient arrived in ED. ap3 07:26 Morgan Cordero MD is Attending Physician. bo1 07:27 Triage completed. ap3 07:33 Arm band placed on right wrist. ap3 07:33 Patient has correct armband on for positive identification. Bed in low position. Call ap3 light in reach. Side rails up X2. Pulse ox on. NIBP on. Door closed. Noise minimized. 08:01 Marlene Sandoval, ARLENE is Primary Nurse. ap3 08:39 CT Head Brain wo Cont In Process Unspecified. EDMS 10:37 No provider procedures requiring assistance completed. Patient did not have IV access ap3 during this emergency room visit. 10:38 Provided Education on: call light instructions. ap3 Administered Medications: No medications were administered Medication: :30 VIS not applicable for this client. ap3 Outcome: :18 Discharge ordered by . bo1 10:37 Discharged to holding room pending pick-up from long-term. report called ap3 10:37 Condition: good 10:37 Discharge instructions given to long-term, Instructed on discharge instructions, Demonstrated understanding of instructions, 10:38 Patient left the ED. ap3 Signatures: Dispatcher [employer] EDMarlene Orozco RN RN ap3 Morgan Cordero MD MD bo1
--- NOTE | 2024-04-11 09:19 | EDPHYS ---
Physician Documentation [facility] Name: Ron Murray Age: 69 yrs Sex: Male : 1955 Arrival Date: 04/11/2024 Time: 07:24 Bed 10 Private MD: ED Physician Morgan Cordero HPI: 04/11 07:32 This 69 yrs old Black Male presents to ER via EMS with complaints of Fall from a bo1 wheelchair. 07:32 Pt is in the skilled nursing. Pt is "bent over" and fell out of his wheelchair. Onset: The bo1 symptoms/episode began/occurred suddenly, this morning. Severity of symptoms: in the emergency department the symptoms No symptoms. Pt is dementia dx and is in the NH, full code status. 09:10 Hx of no LOC or AMS. bo1 Historical: - Allergies: 07:27 No Known Allergies; ap3 - PMHx: 07:27 Alzheimers; cerebral ischemia; Dementia; DYSPHAGIA; Hyperlipidemia; Hypertension; ap3 muscle weakness; muscle weakness; osteoarthritis; schizoaffective; - Immunization history:: Adult Immunizations up to date. - Infectious Disease History:: Denies. - Social history:: Smoking status: unknown. ROS: 09:10 All other systems are negative, bo1 09:10 Unable to obtain ROS due to baseline dementia, 09:20 Constitutional: Negative for acute vomiting or AMS per report bo1 Exam: 09:10 Constitutional: This is an elderly awake, alert, and in no acute distress. bo1 09:10 Constitutional: The patient appears alert, awake, comfortable, non-toxic, 09:10 Head/face: Noted is abrasion(s), that are mild, of the left anabaptist, 09:10 Eyes: Conjunctiva: injected, bilaterally, No drainage, 09:10 Cardiovascular: Rate: tachycardic, Rhythm: regular, Pulses: no pulse deficits are appreciated, 09:10 Respiratory: the patient does not display signs of respiratory distress, Respirations: normal, Breath sounds: are clear throughout, 09:10 Musculoskeletal/extremity: Extremities: the patient is contracted, no acute changes, 09:10 Skin: Mild abrasion at the left temporal area. No laceration and otherwise minimal swelling. 09:10 Neuro: Baseline non-verbal dementia and pt does not follow commands, Vital Signs: 07:26 BP 147 / 97; Pulse 111; Resp 17; Temp 98.1; Pulse Ox 98% ; Weight 67.59 kg; ap3 08:21 BP 145 / 84; Pulse 103; Pulse Ox 94% on R/A; ap3 MDM: 07:26 Medical Screening Exam initiated bo1 09:13 Differential Diagnosis Unbalanced as he's bent over and fell forward from the bo1 wheelchair to the ground. Data reviewed: vital signs, radiologic studies, CT scan. External Records Reviewed: [place]: [facility]. ED course: No indication for additional studies or hospitalization. 04/11 08:28 Order name: CT Head Brain wo Cont; Complete Time: 09:04 bo1 Administered Medications: No medications were administered Disposition Summary: 04/11/24 09:18 Discharge Ordered Notes: Location: Assisted bo1 Problem: new bo1 Symptoms: are unchanged bo1 Condition: Stable bo1 Diagnosis - Fall from non-moving wheelchair bo1 - Unspecified injury of head, initial encounter bo1 Followup: bo1 - With: Private Physician - When: Upon discharge from the Emergency Department - Reason: Recheck today's complaints Discharge Instructions: - Discharge Summary Sheet bo1 - Head Injury, Adult, Ipiw-cw-Qypp bo1 Forms: - Medication Reconciliation Form bo1 - Antibiotic Education bo1 - Prescription Opioid Use bo1 - Patient Portal Instructions bo1 - Leadership Thank You Letter bo1 Signatures: Dispatcher [employer] Marlene Mccray RN RN ap3 Morgan Cordero MD MD bo1 Corrections: (The following items were deleted from the chart) 07:36 07:36 Head Brain Wo Cont+CT.RAD.BRZ ordered. EDNE EDMS
[2024-04-11 10:52] VITALS: TEMP 98.1
[2024-04-11 10:53] VITALS: BP 145/84; O2SAT 94
== END 2024-04-11 10:38 ==
LOC: ER 07:24
DX: S00.81XA Abrasion of other part of head, initial encounter (principal); W05.0XXA Fall from non-moving wheelchair, initial encounter
CPT/HCPCS: 70450; 99283

== ENCOUNTER 2024-06-27 12:57 | Emergency (ER) | payer OTHER ==
--- OUTSIDE RECORDS SUMMARY | 2024-06-27 13:07 | XMS REPORT | Continuity of Care Document ---
Author Name Unknown Address [address] [place] [address] [facility] Address 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 Name Role Phone JACKIE GUTHRIE Primary Care [...] Date Source MEDICARE PART A \\T\\ B [id number] 2020 00:00:00 [place] [id number] 2023 00:00:00 Allergies, Adverse Reactions, Alerts Allergy Name Allergy Type Status Severity Reaction(s) Onset Date Inactive Date Treating Clinician Comments Source No Known Allergie s DA Active U 2019-05 00:00: 00 [facility] No Known Allergie s DA Active U 2019-05 00:00: 00 [facility] No Known Allergie s DA Active [facility] NO KNOWN ALLERGIE S Drug Class Active [facility] Vital Signs Vital Name Observation Time Observation Value Comments S ource Weight 2020-04-15 07:00:00 65.13 KG Weight 2020-04-08 10:33:00 65.58 KG Weight 2020-04-08 09:57:00 65.31 KG Height 2020-04-03 09:34:00 175.26 CM Encounters Start Date/Time End Date/Time Encounter Type Admission Type Attending Clinicians Care Facility Care Department Encounter ID Source 2020-04-03 13:14:00 Inpatient FACUNDO PERALTA [facility] [id number] [facility] 2020-03-18 11:43:00 Inpatient HCAWU TAWANNA [id number] [facility] 2023-09-10 11:23:34 2023-09-10 23:59:00 Outpatient COLLINS KINNEY [facility] [id number] [facility] 2023-03-29 08:33:00 2023-03-29 08:33:00 Outpatient LESTER CHEN [facility] [id number] [place] [facility] 2021-06-04 12:18:00 2021-06-04 12:18:00 Outpatient JAMES FaulknerSHAUNNA JEANIE WARE [id number] [place] [facility] 2020-03-08 14:24:00 2020-03-08 18:10:00 Emergency ER SHRUTHI FRIED [facility] [id number] [facility] 2019-11-23 20:37:00 2019-11-23 22:49:00 Emergency ER BRIDGETTE MANDUJANO [facility] [id number] [facility] 2015-04-26 08:07:00 2015-04-26 08:07:00 Outpatient EL VIRGINIA SUÁREZ [facility] [id number] [facility] 2010-09-24 07:19:00 2010-09-24 08:30:00 Emergency ER CAMERON PADGETT [facility] [id number] [facility] Results Test Description Test Time Test Comments Results Result Co mments Source GLUCOMETER GLUCOSE- LAB USE [id number] 07:28:00* Test Item Value Reference Range Interpretation Comme [facility] GLUCOMETER (test code = GMG) 102 mg/dL 70-100 H CLEANED METERMet er ID: [id number]: [id number] JENNIFER SCHAEFFERKNIGHT B12 [id number] 18:26:00* Test Item Value Reference Range Interpretation Comme [facility] VIT B12 (test code = A60) 459.0 pg/mL 180.0-914.0 [id number] 18:26:00* Test Item Value Reference Range Interpretation Comme [facility] FOLATE (test code = A75) 15.0 ng/mL 3.1-17.5 LIPID [id number] 18:26:00* Test Item Value Reference Range Interpretation Comme [facility] CHOLESTROL (test code = 44A) 192 mg/dL 140-200 TRIGLYCERI (test code = 42B) 61 mg/dL <=149 HDL (test code = 83D) 94.0 mg/dL 40.0-60.0 H LDL (test code = 34B) 86 mg/dL <=99 CHL/HDL (test code = CHR) 2.0 0.0-3.4 THYROID PANEL/SCREEN (TSH)2020-04-03 18:22:00* Test Item Value Reference Range Interpretation Comme [facility] TSH (test code = A57) 0.610 uIU/mL 0.358-3.740 [id number] 18:18:00* Test Item Value Reference Range Interpretation Comme nts MAGNESIUM (test code = 48A) 2.2 mg/dL 1.8-2.4 [id number] 18:18:00* Test Item Value Reference Range Interpretation Comme nts PREALBUMIN (test code = 08E) 34 mg/dL 18-38 [id number] 18:05:00* Test Item Value Reference Range Interpretation Comme nts Hb A1C % (test code = HBA) 4.7 % 3.8-6.4 A1C % (test code = A1C) HbA1c (% ) Reference Range Normal <5.7 Prediabetes 5.7-6.4 Diabetic >=6.5 [id number] 11:51:00* Test Item Value Reference Range Interpretation Comme [facility] ACETAMINPH (test code = 94M) <2.0 ug/mL 10.0-30.0 L [id number] 11:49:00* Test Item Value Reference Range Interpretation Comme [facility] FERRITIN (test code = A19) 521.4 ng/mL 26.0-388.0 H LDH-LACTIC [id number] 11:49:00* Test Item Value Reference Range Interpretation Comme nts LDH (test code = 33A) 241 IU/L 87-241 C-REACTIVE PROTEIN [id number] 11:41:00* Test Item Value Reference Range Interpretation Comme nts CRP QUANT (test code = CRPQ) <2.9 mg/L 0.0-2.9 Method Change (test code = METHOD) Please note the change in Method and the reference range COMPREHENSIVE METABOLIC [id number] 11:41:00* Test Item Value Reference Range Interpretation [...] (test code = 31A) 36 IU/L <=78 [id number] 11:41:00* Test Item Value Reference Range Interpretation Comme nts SALICYLATE (test code = 94B) <1.7 mg/dL 2.8-20.0 L ALCOHOL BLOOD (ETOH)2020-04-03 11:38:00* Test Item Value Reference Range Interpretation Comme nts ETOH (test code = HALC) ETHANOL * The result is to be used only for medical purposes ALCOHOL (test code = 56A) <10 mg/dL <=10 CARDIAC [id number] 11:37:00* Test Item Value Reference Range Interpretation [...] to other clinical and epidemiological data AMMONIA [id number] 11:32:00* Test Item Value Reference Range Interpretation Comme nts AMMONIA (test code = 54A) 18 umol/L PRO TIME AND [id number] 11:26:00* Test Item Value Reference Range Interpretation [...] or LMW Heparin. Order Code is ANTI-XA [id number] 11:26:00* Test Item Value Reference Range Interpretation [...] = RBCMOR) NORMAL - CT HEAD/BRAIN W/O [id number] 14:32:00 [facility] : 1955 Sex: M Patient Name: JENNIFER BARTHOLOMEW Unit No: [id number] EXAMS: CPT CODE: [id number] CT HEAD/BRAIN W/O CONT 73662 CT HEAD WITHOUT CONTRAST CLINICAL HISTORY: Psych [...] Vinnie CTDI: DLP: Trnscrpt: 03/18/2020 (1432) t.[email or web address] [facility] NAME: JENNIFER BARTHOLOMEW [address] PHYS: TRAMI.Jeanette - [place] [address] : 1955 AGE: 64 SEX: M LOC: [place] PHONE #: [phone] EXAM DATE: 03/18/2020 STATUS: REG ER FAX #: [phone] RAD #: D/C DT PAGE 1 Signed Report Patient Name: JENNIFER BARTHOLOMEW Unit No:[id number] EXAMS: CPT CODE: [id number] CT HEAD/BRAIN W/O CONT 37149 (Continued) Orig Print D/T: S: 03/18/2020 (1435) [facility] NAME: JENNIFER BARTHOLOMEW [address] PHYS: [email or web address].[email or web address] - [place] [address] : 1955 AGE: 64 SEX: M LOC: [place] PHONE #: [phone] EXAM DATE: 03/18/2020 STATUS: REG ER FAX #: [phone] RAD #: D/C DT PAGE 2 Signed ReportCOVID 19 Asymptomatic IH [id number] 13:50:00* Test Item Value Reference Range Interpretation [...] virus (antigen) in the sample." BASIC METABOLIC [id number] 13:40:00* Test Item Value Reference Range Interpretation [...] CA) 9.7 MG/DL 8.4-10.2 N HEPATIC FUNCTION [id number] 13:40:00* Test Item Value Reference Range Interpretation [...] code = ALKP) 78 UNITS/L 38-126 N [id number] 13:40:00* Test Item Value Reference Range Interpretation Comme nts TROPONIN-I (test code = TROPI) 0.013 NG/ML 0.012-0.033 N [id number] 13:40:00* Test Item Value Reference Range Interpretation Comme nts ACETAMINOPHEN (test code = ACET) < 10.0 MCG/ML 10-30 L [id number] 13:40:00* Test Item Value Reference Range Interpretation Comme nts SALICYLATE (test code = ROBER) < 1.0 MG/DL <2.0 [id number] 13:40:00* Test Item Value Reference Range Interpretation Comme nts ALCOHOL (test code = ALC) < 10.0 MG/DL <10 BASIC METABOLIC [id number] 13:30:00* Test Item Value Reference Range Interpretation [...] CA) 9.7 MG/DL 8.4-10.2 N HEPATIC FUNCTION [id number] 13:30:00* Test Item Value Reference Range Interpretation [...] code = ALKP) 78 UNITS/L 38-126 N [id number] 13:30:00* Test Item Value Reference Range Interpretation Comme nts TROPONIN-I (test code = TROPI) NG/ML 0.0-0.045 [id number] 13:30:00* Test Item Value Reference Range Interpretation Comme nts ACETAMINOPHEN (test code = ACET) < 10.0 MCG/ML 10-30 L [id number] 13:30:00* Test Item Value Reference Range Interpretation Comme nts SALICYLATE (test code = ROBER) < 1.0 MG/DL <2.0 [id number] 13:30:00* Test Item Value Reference Range Interpretation Comme nts ALCOHOL (test code = ALC) < 10.0 MG/DL <10 URINALYSIS [id number] 13:29:00* Test Item Value Reference Range Interpretation [...] OF URINE: CLEAN CATCHDRUGS OF ABUSE SCREEN [id number] 13:29:00* Test Item Value Reference Range Interpretation [...] ng/mL SOURCE OF URINE: CLEAN CATCHBASIC METABOLIC [id number] 13:29:00* Test Item Value Reference Range Interpretation [...] CA) 9.7 MG/DL 8.4-10.2 N HEPATIC FUNCTION [id number] 13:29:00* Test Item Value Reference Range Interpretation [...] code = ALKP) 78 UNITS/L 38-126 N [id number] 13:29:00* Test Item Value Reference Range Interpretation Comme nts TROPONIN-I (test code = TROPI) NG/ML 0.0-0.045 [id number] 13:29:00* Test Item Value Reference Range Interpretation Comme nts ACETAMINOPHEN (test code = ACET) < 10.0 MCG/ML 10-30 L [id number] 13:29:00* Test Item Value Reference Range Interpretation Comme nts SALICYLATE (test code = ROBER) < 1.0 MG/DL <2.0 [id number] 13:29:00* Test Item Value Reference Range Interpretation Comme nts ALCOHOL (test code = ALC) MG/DL <10 BASIC METABOLIC [id number] 13:28:00* Test Item Value Reference Range Interpretation [...] code = CA) MG/DL 8.7-9.7 HEPATIC FUNCTION [id number] 13:28:00* Test Item Value Reference Range Interpretation [...] PHOSPHATASE (test code = ALKP) UNITS/L 38-126 [id number] 13:28:00* Test Item Value Reference Range Interpretation Comme nts TROPONIN-I (test code = TROPI) NG/ML 0.0-0.045 [id number] 13:28:00* Test Item Value Reference Range Interpretation Comme nts ACETAMINOPHEN (test code = ACET) MCG/ML 10-30 [id number] 13:28:00* Test Item Value Reference Range Interpretation Comme nts SALICYLATE (test code = ROBER) MG/DL <2.0 [id number] 13:28:00* Test Item Value Reference Range Interpretation Comme nts ALCOHOL (test code = ALC) MG/DL <10 URINALYSIS [id number] 13:28:00* Test Item Value Reference Range Interpretation [...] OF URINE: CLEAN CATCHDRUGS OF ABUSE SCREEN [id number] 13:28:00* Test Item Value Reference Range Interpretation [...] PHENCU) NEGATIVE SOURCE OF URINE: CLEAN CATCHURINALYSIS [id number] 13:27:00* Test Item Value Reference Range Interpretation [...] OF URINE: CLEAN CATCHDRUGS OF ABUSE SCREEN [id number] 13:27:00* Test Item Value Reference Range Interpretation [...] NEGATIVE SOURCE OF URINE: CLEAN CATCHBASIC METABOLIC [id number] 13:26:00* Test Item Value Reference Range Interpretation [...] code = CA) MG/DL 8.7-9.7 HEPATIC FUNCTION [id number] 13:26:00* Test Item Value Reference Range Interpretation [...] (test c ode = ALKP) UNITS/L 38-126 [id number] 13:26:00* Test Item Value Reference Range Interpretation Comme nts TROPONIN-I (test code = TROPI) NG/ML 0.0-0.045 [id number] 13:26:00* Test Item Value Reference Range Interpretation Comme nts ACETAMINOPHEN (test code = ACET) MCG/ML 10-30 [id number] 13:26:00* Test Item Value Reference Range Interpretation Comme nts SALICYLATE (test code = ROBER) MG/DL <2.0 [id number] 13:26:00* Test Item Value Reference Range Interpretation Comme nts ALCOHOL (test code = ALC) MG/DL <10 URINALYSIS [id number] 13:26:00* Test Item Value Reference Range Interpretation [...] OF URINE: CLEAN CATCHDRUGS OF ABUSE SCREEN [id number] 13:26:00* Test Item Value Reference Range Interpretation [...] = PHENCU) NEGATIVE SOURCE OF URINE: CLEAN [id number] 13:25:00* Test Item Value Reference Range Interpretation Comme nts SALICYLATE (test code = ROBER) MG/DL <2.0 [id number] 13:25:00* Test Item Value Reference Range Interpretation Comme nts ALCOHOL (test code = ALC) MG/DL <10 URINALYSIS [id number] 13:25:00* Test Item Value Reference Range Interpretation [...] OF URINE: CLEAN CATCHDRUGS OF ABUSE SCREEN [id number] 13:25:00* Test Item Value Reference Range Interpretation [...] NEGATIVE SOURCE OF URINE: CLEAN CATCHBASIC METABOLIC [id number] 13:25:00* Test Item Value Reference Range Interpretation [...] code = CA) MG/DL 8.7-9.7 HEPATIC FUNCTION [id number] 13:25:00* Test Item Value Reference Range Interpretation [...] (test c ode = ALKP) UNITS/L 38-126 [id number] 13:25:00* Test Item Value Reference Range Interpretation Comme nts TROPONIN-I (test code = TROPI) NG/ML 0.0-0.045 [id number] 13:25:00* Test Item Value Reference Range Interpretation Comme nts ACETAMINOPHEN (test code = ACET) MCG/ML 10-30 URINALYSIS [id number] 13:04:00* Test Item Value Reference Range Interpretation [...] OF URINE: CLEAN CATCHDRUGS OF ABUSE SCREEN [id number] 13:04:00* Test Item Value Reference Range Interpretation [...] PHENCU) NEGATIVE SOURCE OF URINE: CLEAN CATCHURINALYSIS [id number] 13:03:00* Test Item Value Reference Range Interpretation [...] OF URINE: CLEAN CATCHDRUGS OF ABUSE SCREEN [id number] 13:03:00* Test Item Value Reference Range Interpretation [...] NEGATIVE SOURCE OF URINE: CLEAN CATCHCBC W/AUTO [id number] 13:02:00* Test Item Value Reference Range Interpretation [...] Notes Date/Time Note Provider Source 2020-03-20 08:16:00 [facility]) Clinical Note REPORT#:[id number] REPORT STATUS: Signed DATE:03/20/20 TIME: 08 PATIENT: JENNIFER BARTHOLOMEW UNIT #: [id number] ROOM/BED: : 59 AGE: 64 SEX: M ATTEND: Dustin Womack MD ADM DT: AUTHOR: Alexa De Leon MD * ALL edits or amendments must be made on the electronic/computer document * Clinical Note Note: [id number] psych note dictated at 0817 RPT #:[id number] END OF REPORT [facility]
--- NOTE | 2024-06-27 13:57 | RAD REPORT ---
EXAM: CT brain without contrast HISTORY: [facility] COMPARISON: 06/27/2024 TECHNIQUE: Multiple contiguous axial images were obtained and a CT of the brain without contrast. Sag ittal and coronal reformats were performed. One or more of the following dose reduction techniques were used: Automated exposure control, adjust ment of the mA and/or kV according to patient size, and/or iterative reconstruction. FINDINGS: No evidence of hydrocephalus, intracranial hemorrhage, or extra-axial fluid collection. Advanced frontotemporal brain atrophy pattern is seen. No evidence of midline shift or areas of brai n edema. The calvarium is intact. The visualized paranasal sinuses and mastoid air cells are essentially clear . IMPRESSION: No evidence of acute intracranial abnormality. Advanced frontotemporal brain atrophy pattern.
--- NOTE | 2024-06-27 14:15 | RAD REPORT ---
EXAM: Chest Single View HISTORY: AMS COMPARISON: 08/19/2023 FINDINGS: LUNGS/PLEURA: Low lung volumes which accentuates the pulmonary vasculature. No definite acute process identified. MEDIASTINUM: The mediastinal silhouette is within normal limits. CARDIAC: Stable size and configuration. UPPER ABDOMEN: No significant abnormality. BONES: No acute abnormality. LINES/TUBES/OTHER: N/A IMPRESSION: Low lung volumes without definite evidence of an acute process.
[2024-06-27 14:35] LABS: Absolute Eosinophils 0.1 K/uL (0-0.5); Absolute Monocytes 0.4 K/uL (0.1-1.3); Absolute Neutrophil 2.6 K/uL (1.8-8.0); Basophils % 0.5 % (0-1.3); Eosinophils % 2.2 % (0-4.4); Hematocrit 42.3 % (39.6-49.0); Hemoglobin 14.3 g/dL (13.6-17.9); Lymphocytes % 25.2 % (15.3-44.8); MCHC 33.8 g/dL (32.0-36.0); MCV 91.7 fL (80-100); MPV 8.2 fL (7.6-11.3); Monocytes % 10.3 % (3.3-12.3); Neutrophils % 61.8 % (41.7-73.7); Platelets 201 thou/uL (152-406); RBC Red Blood Cell Count 4.61 M/uL (4.33-5.43)
[2024-06-27 14:49] LABS: PT Prothrombin Time 11.3 SECONDS (9.4-12.5); PTT, Activated Partial Thromb 29.1 SECONDS (24.3-36.9); Protime INR 1.08
[2024-06-27 14:51] LABS: Albumin 4.1 g/dL (3.4-5.0); Albumin/Globulin Ratio 0.9 (1.1-1.8); Anion Gap 5.8 mEq/L (5.0-15.0); Bilirubin Total 0.4 mg/dL (0.2-1.0); Globulin 4.6 g/dL (2.3-3.5); Potassium 3.8 mEq/L (3.5-5.1); Protein, Total 8.7 g/dL (6.4-8.2)
[2024-06-27 15:11] LABS: Specific Gravity 1.017 (1.005-1.030); Sqamous Epithelial None Seen /HPF (None Seen); Urine Bacteria <20 /HPF (<20); Urine Bilirubin NEGATIVE (Negative); Urine Blood Trace (Negative); Urine Clarity Clear (Clear); Urine Color Light-Yellow (Yellow); Urine Culture Reflex Order NOT NEEDED; Urine Glucose NEGATIVE (Negative); Urine Ketones NEGATIVE (Negative); Urine Microscopic Reflex YN ORDER UMIC; Urine Mucus Slight /HPF (None Seen); Urine Nitrite NEGATIVE (Negative); Urine Protein NEGATIVE (Negative); Urine RBC 21-50 /HPF (None Seen); Urine Urobilinogen Normal (Normal); Urine WBC <5 /HPF (<5); Urine pH 6.5 (5.0-7.0)
--- NOTE | 2024-06-27 15:17 | ER ---
Nurse's Notes [facility] Name: Ron Murray Age: 69 yrs Sex: Male : 1955 Arrival Date: 06/27/2024 Time: 12:57 Bed 8 Private MD: Diagnosis: Encounter for general adult medical examination without abnormal findings Presentation: 06/27 13:21 Chief complaint: EMS states: pt was found unresponsive by [facility] staff. upon EMS kc6 arrival pt was awake and alert. Coronavirus screen: At this time, the client does not indicate any symptoms associated with coronavirus-19. Ebola Screen: No symptoms or risks identified at this time. Initial Sepsis Screen: Does the patient meet any 2 criteria? Altered Mental Status. Does the patient have a suspected source of infection? No. Patient's initial sepsis screen is negative. Risk Assessment: Do you want to hurt yourself or someone else? Patient reports no desire to harm self or others. Onset of symptoms was June 27, 2024. 13:21 Method Of Arrival: EMS: [facility] kc6 13:21 Acuity: DELILAH 3 kc6 Historical: - Allergies: 13:29 No Known Allergies; kc6 - PMHx: 13:29 Alzheimers; cerebral ischemia; Dementia; DYSPHAGIA; Hyperlipidemia; Hypertension; kc6 muscle weakness; osteoarthritis; schizoaffective; - Immunization history:: Adult Immunizations up to date. - Infectious Disease History:: Denies. - Social history:: Smoking status: Patient denies any tobacco usage or history of. - Unable to obtain history due to: altered mental status, baseline dementia. Screenin:25 [facility] ED Fall Risk Assessment (Adult) History of falling in the last 3 months, kc6 including since admission No falls in past 3 months (0 pts) Confusion or Disorientation Yes (5 pts) Intoxicated or Sedated No (0 pts) Impaired Gait Yes (1 pt) Mobility Assist Device Used Yes (1 pt) Altered Elimination No (0 pt) Score/Fall Risk Level 3 or more points = High Risk Oriented to surroundings, Maintained a safe environment, Educated pt \T\ family on fall prevention, incl call for assistance when getting out of bed. Abuse screen: Denies threats or abuse. Denies injuries from another. Nutritional screening: No deficits noted. Tuberculosis screening: No symptoms or risk factors identified. Assessment: 13:00 General: Appears in no apparent distress. comfortable, well developed, Behavior is kc6 calm, cooperative, appropriate for age. Pain: Unable to use pain scale. Patient is disoriented. Does not appear to understand pain scale. Neuro: Level of Consciousness is awake, alert, confused, Oriented to none. Cardiovascular: Capillary refill < 3 seconds. Respiratory: Airway is patent Trachea midline Respiratory effort is even, unlabored, Respiratory pattern is regular, symmetrical. GI: No signs and/or symptoms were reported involving the gastrointestinal system. : No signs and/or symptoms were reported regarding the genitourinary system. EENT: No signs and/or symptoms were reported regarding the EENT system. Derm: No signs and/or symptoms reported regarding the dermatologic system. Skin is intact, is healthy with good turgor, Skin is pink, warm \T\ dry. Musculoskeletal: No signs and/or symptoms reported regarding the musculoskeletal system. Circulation, motion, and sensation intact. Range of motion: intact in all extremities. 14:00 Reassessment: Patient appears in no apparent distress at this time. No changes from kc6 previously documented assessment. Patient and/or family updated on plan of care and expected duration. Pain level reassessed. 15:00 Reassessment: Patient appears in no apparent distress at this time. No changes from kc6 previously documented assessment. Patient and/or family updated on plan of care and expected duration. Pain level reassessed. 15:31 Reassessment: attempted to call report to [facility]. on hold for 10min for nurse. kc 15:41 Reassessment: Patient is alert/active/playful, equal unlabored respirations, skin kc6 warm/dry/pink. nurse to nurse report given to ARLENE Lao at [facility]. states she will arrange transport and call back with[facility]. Vital Signs: 13:21 BP 182 / 104; Pulse 70; Resp 18 S; Pulse Ox 98% on R/A; Weight 75.75 kg (M); kc6 15:35 BP 163 / 84; Pulse 75; Resp 16 S; Pulse Ox 100% on R/A; kc6 ED Course: 12:59 Patient arrived in ED. bd 13:09 Eusebio Woody MD is Attending Physician. rn 13:21 Patient has correct armband on for positive identification. Bed in low position. Call kc6 light in reach. Side rails up X2. Adult w/ patient. Pulse ox on. NIBP on. Door closed. Noise minimized. Lights dimmed. Warm blanket given. Pillow given. 13:28 Triage completed. kc6 13:29 Arm band placed on. kc6 13:54 CT Head Brain wo Cont In Process Unspecified. EDMS 14:07 Chest Single View XRAY In Process Unspecified. EDMS 14:56 Initial lab(s) drawn, by me, sent to lab. Inserted saline lock: 20 gauge in left bc6 antecubital area, using aseptic technique. Blood collected. Flushed with 10 mL NS. 16:30 No provider procedures requiring assistance completed. IV discontinued, intact, ph bleeding controlled, No redness/swelling at site. Pressure dressing applied. Administered Medications: No medications were administered Outcome: 15:16 Discharge ordered by MD. rn 16:30 [facility] to [facility]. ph 16:30 Condition: good 16:30 Discharge instructions given to significant other, prison, Instructed on discharge instructions, follow up and referral plans. Demonstrated understanding of instructions, follow-up care, 18:18 Patient left the ED. ph Signatures: Dispatcher [employer] EDMS Princess Dorsey Roman, MD MD rn Hall, Patricia, RN RN Vee Hou RN RN [facility] Bridgette Sal [facility]
--- NOTE | 2024-06-27 15:17 | EDPHYS ---
Physician Documentation [facility] Name: Ron Murray Age: 69 yrs Sex: Male : 1955 Arrival Date: 06/27/2024 Time: 12:57 Bed 8 Private MD: ED Physician Eusebio Woody HPI: 06/27 13:14 This 69 yrs old Black Male presents to ER via Unassigned with complaints of AMS. rn 13:14 The patient presents with decreased responsiveness. Onset: The symptoms/episode rn began/occurred at an unknown time. Possible causes: unknown. Current symptoms: In the emergency department the patient's symptoms have improved. It is unknown whether or not the patient has had similar symptoms in the past. EMS reports altered mental status per [facility], was less responsive than normal. Slumped over in his chair but no reported seizure or syncopal episode. No trauma. Patient has a history of stroke in the past and EMS reports seems at his baseline compared to previous times that they picked him up. No new focal neurological symptoms but sent to rule out stroke from [facility].. 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 - Infectious Disease History:: Denies. - Social history:: Smoking status: Patient denies any tobacco usage or history of. - Unable to obtain history due to: altered mental status, baseline dementia. ROS: 13:14 Unable to obtain ROS due to altered mental status, baseline dementia, rn Exam: 13:14 Constitutional: This is a well developed, well nourished patient who is awake, alert, rn and in no acute distress. Head/Face: Normocephalic, atraumatic. ENT: Dry mucous membranes, no tongue laceration Neck: No neck stiffness or meningismus Cardiovascular: Regular rate and rhythm. No pulse deficits. Respiratory: No increased work of breathing, no retractions or nasal flaring. Abdomen/GI: Soft, non-tender Skin: Warm, dry, no rash or signs of cellulitis MS/ Extremity: Pulses equal, no cyanosis. Neuro: Awake, responds to painful stimuli, does not cooperate with strength testing but does use both upper extremities with equal strength, 4 out of 5. Using both arms to cover himself back up when uncovered. No voluntary lower extremity movement. Nonverbal. 14:33 ECG was reviewed by the Attending Physician. rn Vital Signs: 13:21 BP 182 / 104; Pulse 70; Resp 18 S; Pulse Ox 98% on R/A; Weight 75.75 kg (M); kc6 15:35 BP 163 / 84; Pulse 75; Resp 16 S; Pulse Ox 100% on R/A; kc6 MDM: 13:09 Medical Screening Exam initiated rn 15:15 Differential Diagnosis: CVA, electrolyte abnormality, hypoglycemia, intracranial bleed, rn UTI, volume depletion. Data reviewed: vital signs, nurses notes, lab test result(s), EKG, radiologic studies, CT scan, plain films, and as a result, I will discharge patient. Counseling: I had a detailed discussion with the patient and/or guardian regarding the historical points, exam findings, and any diagnostic results supporting the discharge/admit diagnosis, lab results, radiology results, the need for outpatient follow up, to return to the emergency department if symptoms worsen or persist or if there are any questions or concerns that arise at home. Special discussion: I discussed with the patient/guardian in detail that at this point there is no indication for admission to the hospital. It is understood, however, that if the symptoms persist or worsen the patient needs to return immediately for re-evaluation. ED course: No acute findings and workup including chest x-ray and CT head. Does show advanced cerebral atrophy. Spoke with family member and patient seems at baseline now. No indication for emergent admission at this time. Will [facility] to [facility].. 06/27 13:14 Order name: Blood Culture Adult (2) rn 06/27 13:14 Order name: CBC with Diff; Complete Time: 14:57 rn 06/27 13:14 Order name: CMP; Complete Time: 14:57 rn 06/27 13:14 Order name: Lactate w/ 2H reflex if indic.; Complete Time: 14:57 rn 06/27 13:14 Order name: Protime (+inr); Complete Time: 14:57 rn 06/27 13:14 Order name: Ptt, Activated; Complete Time: 14:57 rn 06/27 13:14 Order name: Urinalysis w/ reflexes; Complete Time: 15:12 rn 06/27 13:14 Order name: Chest Single View XRAY; Complete Time: 14:17 rn 06/27 13:14 Order name: CT Head Brain wo Cont; Complete Time: 14:17 rn 06/27 13:14 Order name: Accucheck; Complete Time: 14:52 rn 06/27 13:14 Order name: Cardiac monitoring; Complete Time: 14:52 rn 06/27 13:14 Order name: EKG - Nurse/Tech; Complete Time: 14:52 rn 06/27 13:14 Order name: IV Saline Lock - Large Bore; Complete Time: 14:52 rn 06/27 13:14 Order name: Labs collected and sent; Complete Time: 14:52 rn 06/27 13:14 Order name: O2 Per Protocol; Complete Time: 13:29 rn 06/27 13:14 Order name: O2 Sat Monitoring; Complete Time: 13:29 rn 06/27 13:14 Order name: Vital Signs; Complete Time: 13:29 rn EC:33 Rate is 77 beats/min. Rhythm is regular. RI interval is normal. QRS interval is normal. rn QT interval is normal. No Q waves. T waves are Normal. No ST changes noted. Clinical impression: NSR w/ Non-specific ST/T Changes. Interpreted by me. Reviewed by me. Administered Medications: No medications were administered Disposition Summary: 06/27/24 15:16 Discharge Ordered Notes: Location: Home rn Problem: new rn Symptoms: have improved rn Condition: Stable rn Diagnosis - Encounter for general adult medical examination without abnormal findings rn Followup: rn - With: Private Physician - When: As needed - Reason: Recheck today's complaints, Re-evaluation by your physician Discharge Instructions: - Discharge Summary Sheet rn - Frontotemporal Dementia rn - Health Maintenance, Male rn Forms: - Medication Reconciliation Form rn - Antibiotic editing internship - Prescription Opioid Use rn - Patient Portal Instructions rn - Leadership Thank You Letter rn Signatures: Dispatcher [employer] Eusebio Larsen MD MD rn Campbell, Kaitlyn RN RN kc6 Corrections: (The following items were deleted from the chart) 13:14 13:14 BLOOD CULTURE*+BA.LAB.BRZ ordered. EDMS EDMS 13:14 13:14 CBC+H.LAB.BRZ ordered. EDMS EDMS 13:14 13:14 COMPREHENSIVE METABOLIC PANEL+C.LAB.BRZ ordered. EDMS EDMS 13:14 13:14 LACTATE+C.LAB.BRZ ordered. EDMS EDMS 13:14 13:14 PROTIME (+INR)+COAG.LAB.BRZ ordered. EDMS EDMS 13:14 13:14 PTT, ACTIVATED+COAG.LAB.BRZ ordered. EDMS EDMS 13:14 13:14 Urinalysis+U.LAB.BRZ ordered. EDMS EDMS 13:14 13:14 Chest Single View+RAD.RAD.BRZ ordered. EDMS EDMS 13:14 13:14 Head Brain Wo Cont+CT.RAD.BRZ ordered. EDMS EDMS
[2024-06-27 20:05] VITALS: BP 163/84; O2SAT 100
== END 2024-06-27 18:18 | disposition home or self-care (01) ==
LOC: ER 12:57
DX: Z71.1 Person with feared health complaint in whom no diagnosis is made (principal); G30.9 Alzheimer's disease, unspecified; F02.80 Dementia in other diseases classified elsewhere, unspecified severity, without behavioral disturbance, psychotic disturbance, mood disturbance, and anxiety; Z86.73 Personal history of transient ischemic attack (TIA), and cerebral infarction without residual deficits
CPT/HCPCS: 36415; 70450; 71045; 80053; 81001; 83605; 85025; 85610; 85730; 87040; 93005